=== PATIENT | female | born 1945 | race African-American/Black ===

== ENCOUNTER 2016-12-12 12:27 | Outpatient (CLI) | payer MEDICARE ==
--- OUTSIDE RECORDS SUMMARY | 2016-12-12 12:31 | XMS | Clinical Summary ---
:[address] [facility] Address [address] [place] [address] Phone Care Team Providers Name Role Phone , Primary Care Provider Unavailable Allergies No Known Allergies Current Medications Prescription Sig. Disp. Refills Start Date End Date Status sevelamer (RENVELA) Take 3,200 mg by mouth Active 800 mg tablet 3 (three) times daily with meals 4 tabs w/ meals. lisinopril Take 20 mg by mouth 2 Active (PRINIVIL,ZESTRIL) 20 (two) times daily. MG tablet lovastatin (MEVACOR) Take 40 mg by mouth Active 40 MG tablet nightly. aspirin 325 MG EC Take 325 mg by mouth Active tablet daily. carvedilol (COREG) 25 Take 25 mg by mouth 2 Active MG tablet (two) times daily with breakfast and dinner. clopidogrel (PLAVIX) Take 75 mg by mouth Active 75 mg tablet daily. diltiazem (CARDIZEM) Take 60 mg by mouth 2 Active 60 MG tablet (two) times daily. hydrALAZINE Take 100 mg by mouth 3 Active (APRESOLINE) 100 MG (three) times daily. tablet insulin detemir Inject 30 Units Active (LEVEMIR) 100 unit/mL subcutaneously injection nightly. isosorbide dinitrate Take 30 mg by mouth Active (ISORDIL) 30 MG tablet daily. insulin aspart Inject subcutaneously Active (NOVOLOG FLEXPEN) 100 3 (three) times daily unit/mL InPn with meals. 5 units 3 times before meals ergocalciferol Take 50,000 Units by Active (VITAMIN D2) 50,000 mouth once a week. unit capsule Active Problems Patient Care Coordination Note Dr. Morales, PCP [phone] Problem Noted Date Pre-transplant evaluation for chronic kidney disease 06/03/2015 ESRD (end stage renal disease) on dialysis ([facility]) 06/03/2015 Coronary artery disease involving [place] coronary artery of [place] heart 06/02 without angina pectoris S/P CABG (coronary artery bypass graft) 06/03/2015 Proliferative diabetic retinopathy without macular edema associated with 06/02 type 2 diabetes mellitus (HCC) H/O: gout 06/03/2015 Pre-transplant evaluation for ESRD (end stage renal disease) 03/06/2013 Last Assessment & Plan: Evaluation by Dr. 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 HTN (hypertension) 03/06/2013 Hyperlipidemia 03/06/2013 Hyperparathyroidism (HCC) 03/06/2013 Hyperuricemia 03/06/2013 Atherosclerotic coronary vascular disease 03/06/2013 CHF (congestive heart failure) ([facility]) 03/06/2013 Last Assessment & Plan: H/o CABG, f/u stress test results today Hx of colonic polyps 03/06/2013 Ovarian cyst 03/06/2013 Last Assessment & Plan: Had a hysterectomy in the past for fibroids Chronic anemia 03/06/2013 Gout 03/06/2013 Osteoarthritis 03/06/2013 Last Assessment & Plan: Uses walker outside of the house and sometimes at home Family History Medical History Relation Name Comments Diabetes Father Hypertension Father Diabetes Mother Hypertension Mother Relation Name Status Comments Father Mother Social History Tobacco Use Types Packs/Day Years Used Date Never Smoker Smokeless Tobacco: Never Used Alcohol Use Drinks/Week oz/Week Comments No 0.0 Sex Assigned at Date Recorded Not on file Last Filed Vital Signs Vital Sign Reading Time Taken Blood Pressure 190/73 06/01/2015 11:58 AM CDT Pulse 80 06/01/2015 11:58 AM CDT Temperature 36.3 C (97.4 F) 06/01/2015 11:58 AM CDT Respiratory Rate 20 06/01/2015 11:58 AM CDT Oxygen Saturation - - Inhaled Oxygen Concentration - - Weight 82.4 kg (181 lb 9.6 oz) 06/01/2015 11:58 AM CDT Height 160 cm (5' 3") 06/01/2015 11:56 AM CDT Body Mass Index 32.17 06/01/2015 11:58 AM CDT Plan of Treatment Health Maintenance Due Date Last Done Comments INFLUENZA VACCINE 12/10/2016 Results Not on filefrom Last 3 Months
[2016-12-12 13:54] LABS: Anion Gap 20 mmol/L (10-20); BUN (Urea Nitrogen) 34 mg/dL (9.8-20.1); Calc. Creatinine Clearance 0 mL/min (70-130); Calcium 9.3 mg/dL (7.8-10.44); Carbon Dioxide 20 mmol/L (23-31); Chloride 99 mmol/L (98-107); Estimated GFR-MDRD 5
== END 2016-12-12 12:28 | disposition home or self-care (01) ==
LOC: LABBT 12:27
PROVIDERS: ATTEND Neurological Surgery
DX: Z01.818 Encounter for other preprocedural examination (principal); M43.16 Spondylolisthesis, lumbar region; M48.061 Spinal stenosis, lumbar region without neurogenic claudication
CPT/HCPCS: 80048

== ENCOUNTER 2016-12-13 07:14 | Inpatient (IN) | payer MEDICARE ==
--- NOTE | 2016-12-05 18:51 | HP ---
HISTORY OF PRESENT ILLNESS: Ms. Gallegos is a 71-year-old woman who presents for evaluation of rapid onset of lower back pain and neurogenic claudication symptoms roughly 2 months ago with a previous history of significant back and leg trouble. This is in the setting of an MRI from [facility] ls severe canal stenosis at L2 through L5 and spondylolisthesis at L4-L5. She is using a walker now secondary to pain. She has not treated much to date by any means. PAST MEDICAL HISTORY: Unassessed. CURRENT MEDICATIONS: Unassessed. ALLERGIES: No known drug allergies. PHYSICAL EXAMINATION: Patient is alert and oriented x3. Her gait is stooped and slowed. She uses a walker for ambulation. Lower extremity motor exam is normal. ASSESSMENT: Lumbar stenosis, neurogenic claudication. PLAN: Discussed multilevel decompression with the patient and then also with Dr. Coates, he then met with the patient, reviewed her imaging and ultimately advocated for an L2 through L5 decompression with L4-L5 fusion. He explained to the patient the risks, benefits, and alternatives to the procedu re. The patient expressed understanding and would like to move forward with surgery as discussed. I do believe the patient is mentally competent and capable of making medical decisions for herself a nd we will move forward with surgery as planned.
--- OUTSIDE RECORDS SUMMARY | 2016-12-13 07:17 | XMS | Clinical Summary ---
:1945 Author Organization [facility] Address [address] [place] [address] Phone Care Team Providers Name Role Phone [...] Patient Care Coordination Note Dr. Morales, PCP [phone] Problem Noted Date Pre-transplant evaluation for chronic kidney disease 06/03/2015 ESRD (end stage renal disease) on dialysis ([facility]) 06/03/2015 Coronary artery disease involving [place] coronary artery of [place] heart 06/02 without angina pectoris S/P CABG (coronary artery bypass graft) 06/03/2015 Proliferative diabetic retinopathy without macular edema associated with 06/02 type 2 diabetes mellitus (HCC) H/O: gout 06/03/2015 Pre-transplant evaluation for ESRD (end stage renal disease) 03/06/2013 Last Assessment & Plan: Evaluation by Dr. 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
[2016-12-13] MEDS ORDERED: Bupivacaine HCl 0.5%/Epinephrine 1:200,000/PF 30 ml Vial ONE (09:21)
[2016-12-13] MEDS ORDERED: Thrombin 5000 UNITS/5 ML VIAL ONE (09:21)
[2016-12-13] MEDS ORDERED: Fentanyl 250 MCG/5 ML VIAL ONE (09:36)
[2016-12-13] MEDS ORDERED: Ondansetron HCl/PF 4 MG/2 ML Vial ONE (09:54)
[2016-12-13] MEDS ORDERED: Propofol 200 MG/20 ML VIAL ONE (09:54)
[2016-12-13] MEDS ORDERED: Dexamethasone 20 MG/5 ML VIAL ONE (09:54)
[2016-12-13] MEDS ORDERED: Lidocaine 1% PF 5 ML VIAL ONE (09:54)
[2016-12-13] MEDS ORDERED: Labetalol HCl 100 MG/20 ML SYR ONE (09:54)
[2016-12-13] MEDS ORDERED: PHENYLEPHRINE-NS 100 MCG/ML 10 ML SYRINGE ONE (09:54)
[2016-12-13 10:20] LABS: #Basophils 0.1 thou/uL (0.0-0.2); #Eosinphils 0.2 thou/uL (0.0-0.7); #Lymphocytes 1.6 thou/uL (1.20-3.40); #Monocytes 0.8 thou/uL (0.11-0.59); #Neutrophils 4.5 thou/uL (1.40-6.50); %Basophils 0.7 % (0.0-1.0); %Eosinophils 2.4 % (0.0-10.0); %Lymphocytes 22.9 % (21.0-51.0); %Monocytes 11.4 % (0.0-10.0); Hematocrit 32.3 % (36.0-47.0); Red Blood Cell (RBC) Count 3.33 mill/uL (4.20-5.40); White Blood Cell (WBC) Count 7.1 thou/uL (4.8-10.8)
[2016-12-13 11:07] LABS: Prothrombin Time 14.3 SEC (12.0-14.7)
[2016-12-13 11:08] LABS: PTT 36.5 SEC (22.9-36.1)
--- NOTE | 2016-12-13 11:15 | PRG ---
DATE OF SERVICE: 12/13/2016 Ms. Gallegos is a 71-year-old female known to us for outpatient evaluation for severe low back and lo wer extremity discomfort. This is in the setting of an MRI scan which revealed the presence of high grade lumbar stenosis with associated spondylolisthesis at L4 upon L5. We met with her in the outp atient clinic area and I also talked with her on the phone to discuss multilevel lumbar decompressio n and 1 level posterolateral instrumented fusion. Ms. Gallegos has multiple medical comorbidities including kidney failure where she requires dialysis. She was unable to complete dialysis earlier this week secondary to severe pain. As such, her BUN and creatinine today are elevated. I do have some concerns regarding her current blood count and wh at could be a propensity towards bleeding in our operative case. I did share that with her and the family. We will move forward in order to provide her with some relief, but also recognized the pos sibility that we may need to cut short and/or altogether abort our surgical case should she be coagu lopathic. Ms. Gallegos questions were answered. All the risks, benefits and alternatives of the case were disc ussed with her. Informed consent was provided.
[2016-12-13] MEDS ORDERED: SUGAMMADEX SODIUM 500 MG/5 ML VIAL ONE (13:06)
[2016-12-13] MEDS ORDERED: Bisacodyl 10 MG SUPP PR PRN (13:08)
[2016-12-13] MEDS ORDERED: diphenhydrAMINE HCl 50 MG/ML 1 ML VIAL IVP PRN (13:08)
[2016-12-13] MEDS ORDERED: Acetaminophen 325 MG TAB PO PRN (13:08)
[2016-12-13] MEDS ORDERED: Mag-Al 1200 mg/1200 mg/30 ML UDCUP PO PRN (13:08)
[2016-12-13] MEDS ORDERED: Acetaminophen ER (8hr) 650 MG TAB PO PRN (13:10)
[2016-12-13] MEDS ORDERED: Sodium Chloride 0.9% 1,000 ML IV SCH ×2 (13:15→16:24)
[2016-12-13] MEDS ORDERED: Morphine Sulfate 2 MG/ML SYRINGE SLOW IVP PRN (13:35)
[2016-12-13] MEDS ORDERED: Promethazine HCl 25 MG/ML VIAL IM PRN (13:35)
[2016-12-13] MEDS ORDERED: Promethazine HCl 25 MG/ML VIAL SLOW IVP PRN (13:35)
[2016-12-13] MEDS ORDERED: Ondansetron HCl/PF 4 MG/2 ML Vial IVP PRN (13:35)
[2016-12-13] MEDS ORDERED: Fentanyl 100 MCG/2 ML VIAL ONE ×2 (13:50→14:10)
--- NOTE | 2016-12-13 15:04 | RAD ---
AP CHEST: Indication: Central line placement. Comparison: 05-15-16 FINDINGS: There has been interval placement of a left IJ central venous catheter. The tip projects in the maverick on of the SVC or possibly the azygous vein. Cardiomegaly and pulmonary vascular congestion is presen t. There are small pleural effusions. No pneumothorax is evident. IMPRESSION: 1. Central venous catheter projecting from the left IJ to the region of the SVC or possibly the azyg ous vein. 2. Cardiomegaly with pulmonary vascular congestion. 3. No pneumothorax. POS: [facility]
[2016-12-13] MEDS: tiZANidine HCl 4 MG TAB PO PRN (16:07)
[2016-12-13] MEDS ORDERED: Furosemide 100 MG/10 ML VIAL SLOW IVP SCH (16:30)
[2016-12-13 16:53] VITALS: BMI 27.5
[2016-12-13] MEDS: Sevelamer Carbonate 800 MG TAB PO SCH (17:33)
[2016-12-13] MEDS ORDERED: FLU VACC TS2017-18 (>65YR) 0.5 ML SYRINGE IM ONE (18:00)
[2016-12-13] MEDS ORDERED: Dextrose 5% in Water 1,000 ML IV PRN (18:52)
[2016-12-13] MEDS ORDERED: Insulin Regular 300 UNITS/3 ML VIAL SC PRN (18:52)
[2016-12-13] MEDS ORDERED: Dextrose 50% Abboject 50 ML SYRINGE IVP PRN (18:52)
[2016-12-13] MEDS: Carvedilol 25 MG TAB PO SCH (20:17)
[2016-12-13] MEDS: Lisinopril 20 MG TAB PO SCH (20:17)
[2016-12-13] MEDS: Atorvastatin Calcium 10 MG TAB PO SCH (20:17)
[2016-12-13] MEDS ORDERED: Famotidine 20 MG TAB PO PRN (21:00)
[2016-12-14] MEDS: tiZANidine HCl 4 MG TAB PO PRN ×2 (04:32→12:02)
[2016-12-14] MEDS: Acetaminophen/Codeine 30-300mg Tablet PO PRN ×2 (05:16→10:54)
[2016-12-14 05:22] LABS: #Monocytes 1.1 thou/uL (0.11-0.59); #Neutrophils 8.6 thou/uL (1.40-6.50); %Basophils 0.2 % (0.0-1.0); %Eosinophils 0.1 % (0.0-10.0); %Lymphocytes 9.4 % (21.0-51.0); Hematocrit 34.6 % (36.0-47.0); Mean Platelet Volume 7.4 fL (7.4-10.4); Red Blood Cell (RBC) Count 3.52 mill/uL (4.20-5.40); White Blood Cell (WBC) Count 10.6 thou/uL (4.8-10.8)
[2016-12-14 05:56] LABS: Anion Gap 18 mmol/L (10-20); BUN (Urea Nitrogen) 50 mg/dL (9.8-20.1); Calc. Creatinine Clearance 5 mL/min (70-130); Calcium 8.7 mg/dL (7.8-10.44); Carbon Dioxide 25 mmol/L (23-31); Chloride 98 mmol/L (98-107); Estimated GFR-MDRD 4
--- NOTE | 2016-12-14 06:02 | CON ---
DATE OF CONSULTATION: 12/13/2016 REASON FOR CONSULTATION: Manage medical problems. HISTORY OF PRESENT ILLNESS: Ms. Gallegos is a 71-year-old -[place] female with a past medica l history of diabetes, end-stage renal disease, hypertension, and hyperlipidemia admitted because of lumbar spinal stenosis with spondylolisthesis at L3-L4 for surgery. Neurosurgery admitted and she underwent surgery for decompression and fusion of the lumbar spine area. The patient states she carranza s not take Levemir because of hypoglycemic episodes, so currently, she is not taking anything for di abetes and taking her blood pressure medications and goes to dialysis. Currently, she does not have any chest pain or shortness of breath. Complains of pain in the left side of the body, left arm, a nd left leg. No nausea or vomiting. No shortness of breath. No fever. PAST MEDICAL HISTORY: 1. End-stage renal disease. 2. Hypertension. 3. Insulin-dependent diabetes mellitus. 4. Hyperlipidemia. 5. Chronic back pain with radiculopathy. PAST SURGICAL HISTORY: Nothing significant. CURRENT MEDICATIONS: The patient is on hydralazine 50 t.i.d., Levemir insulin on hold, Imdur 30 mg daily, lisinopril 20 mg b.i.d., Renvela 3200 mg t.i.d., Zantac 150 daily, diltiazem one tablet t.i.d ., Coreg b.i.d. She used to be on Plavix and aspirin which are on hold. Lovastatin 40 mg daily. ALLERGIES: No known drug allergies. FAMILY HISTORY: Nothing of interest. SOCIAL HISTORY: The patient lives with family. No history of smoking. No history of alcohol intak e. REVIEW OF SYSTEMS: Cardiovascular: No chest pain. No shortness of breath. Respiratory: No fever or cough. Gastrointestinal: No nausea or vomiting. No abdominal pain. Genitourinary: No dysuri a or hematuria. Central Nervous System: No headache, no dizziness. PHYSICAL EXAMINATION: GENERAL: The patient is alert, awake, and oriented x2. VITAL SIGNS: Temperature 98, pulse 65, respirations 20, blood pressure 130/90. HEENT: Head is normocephalic and atraumatic. Pupils are equal and reactive to light. Nasopharynx is pale and dry. Hard and soft palate, no lesions seen. SKIN: Skin turgor decreased. NECK: Supple. No JVD. LUNGS: Bilateral air entry present. No rales, no rhonchi. HEART: S1 and S2 regular. ABDOMEN: Soft. No distention, no tenderness. Normal bowel sounds present. CENTRAL NERVOUS SYSTEM: No focal deficits. LABORATORY DATA AND IMAGING DATA: CBC shows WBC of 7, hemoglobin 10.5, hematocrit 32, platelets 245 . Prothrombin time 14, INR 1.1. Accu-Chek 83 and 76. EKG shows normal sinus rhythm. No acute ST- T wave changes seen. ASSESSMENT: 1. End-stage renal disease. 2. Hypertension. 3. Insulin-dependent diabetes mellitus. 4. Lumbar spinal stenosis with spondylolisthesis at L3-L4. PLAN: 1. Vital signs q. 4 hours. 2. Activity: As tolerated. 3. Allergies: NKDA. 4. Hep-Lock. 5. Accu-Cheks a.c. and at bedtime. 6. Sliding scale mild with regular insulin. 7. ADA diet and renal diet. 8. We will hold Levemir and continue other medications. Thank you very much for this consult. We will follow.
--- NOTE | 2016-12-14 06:25 | CON ---
DATE OF CONSULTATION: 12/13/2016 CONSULTING PHYSICIAN: Dr. Almas Coates. REASON FOR CONSULTATION: End-stage renal disease evaluation and care. REASON FOR ADMISSION: Neck surgery. HISTORY OF PRESENT ILLNESS: This is a 71-year-old female with history of end-stage renal disease, h ypertension, type 2 diabetes, hyperlipidemia, who came to the hospital for neck surgery. She gets d ialysis Sunday, Sunday and Sunday, due for dialysis today and Nephrology consulted. The patient denied to have dialysis today. She only had one hour of dialysis on Sunday and get dialysis today, but her face is puffy. No shortness of breath reported, but she is hypoxic, needing oxygen through the nasal cannula. No fever or chills. No nausea, vomiting. Her family was at the bedside. PAST MEDICAL HISTORY: Positive for end-stage renal disease, hypertension, type 2 diabetes, hyperlip idemia, gout. PAST SURGICAL HISTORY: Hysterectomy, appendectomy. HOME MEDICATIONS: Include hydralazine, Renvela, lovastatin, lisinopril, isosorbide, Levemir, Cardiz em, Plavix, carvedilol and aspirin. SOCIAL HISTORY: No smoking, alcohol or illicit drug abuse. ALLERGIES: No known drug allergies. FAMILY HISTORY: No history of any kidney disease. REVIEW OF SYSTEMS: The following complete review of systems was negative unless otherwise mentioned in the HPI or below: Constitutional: Weight loss or gain, ability to conduct usual activities. S kin: Rash, itching. Eyes: Double vision, pain. ENT/Mouth: Nose bleeding, neck stiffness, pain, tenderness. Cardiovascular: Palpitations, dyspnea on exertion, orthopnea. Respiratory: Shortness of breath, wheezing, cough, hemoptysis, fever or night sweats. Gastrointestinal: Poor appetite, a bdominal pain, heartburn, nausea, vomiting, constipation, or diarrhea. Genitourinary: Urgency, daniel quency, dysuria, nocturia. Musculoskeletal: Pain, swelling. Neurologic/Psychiatric: Anxiety, dep ression. Allergy/Immunologic: Skin rash, bleeding tendency. PHYSICAL EXAMINATION: GENERAL: This is a well-built female, in no apparent distress. VITAL SIGNS: Temperature 97.9, pulse 70, respiratory rate 18, blood pressure 140/60. HEENT: Atraumatic, normocephalic. Facial puffiness present. NECK: Supple, no masses. CARDIOVASCULAR: S1, S2 heard. Rate and rhythm regular. RESPIRATORY: Clear. GASTROINTESTINAL: Abdomen is soft. MUSCULOSKELETAL: 1+ edema. DERMATOLOGIC: No skin rash. NEUROLOGIC: Alert, awake. PSYCHIATRIC: Mood and affect normal. LABORATORY DATA: Hemoglobin is 10.4. Potassium is 5.0. BUN , creatinine is 6.2. ASSESSMENT AND PLAN: 1. End-stage renal disease, on hemodialysis. Plan is to continue on dialysis as tolerated. The fer patel refused to have dialysis today, repeat labs in the morning. We will give one dose of Lasix an d we will reduce IV fluids to 30 mL per hour. 2. Anemia, rule out any bleed. 3. Edema. We will remove fluid with dialysis, patient refused to have dialysis today. 4. Hypertension. Continue home medication. 5. Continue selected home medications. We will have dialysis in the morning as patient is refusing today. We will continue to follow. Thank you for the consultation.
[2016-12-14] MEDS: Sevelamer Carbonate 800 MG TAB PO SCH ×3 (07:47→18:31)
[2016-12-14] MEDS: Carvedilol 25 MG TAB PO SCH ×2 (07:49→22:07)
[2016-12-14] MEDS: Lisinopril 20 MG TAB PO SCH ×2 (07:49→22:07)
[2016-12-14] MEDS ORDERED: Heparin 10,000 UNITS/ 10 ML VIAL ONE (09:00)
--- NOTE | 2016-12-14 11:16 | PRG ---
DATE OF SERVICE: 12/14/2016 SUBJECTIVE: The patient was seen and examined at bedside and during dialysis. The patient is not t olerating dialysis well. She is having jerking movements and a lot of pain. She is still able to t olerate only 1 hour of dialysis today. She was taken off. The patient still with puffy face, no sh ortness of breath. She was hypoxic on oxygen nasal cannula. No fever or chills. No nausea, vomiti ng. OBJECTIVE: GENERAL: This is an elderly female in mild distress. VITAL SIGNS: Temperature 96, pulse 82, respirations 16, blood pressure 165/69. HEENT: Atraumatic, normocephalic. Oral mucosa is moist. NECK: Supple. CARDIOVASCULAR: S1, S2 heard. Rate and rhythm regular. RESPIRATORY: Clear. ABDOMEN: Soft. MUSCULOSKELETAL: 1+ edema. DERMATOLOGIC: No skin rash. NEUROLOGIC: Alert, awake. PSYCHIATRIC: Mood and affect normal. LABORATORY DATA: Hemoglobin is 11.0, potassium 4.0, BUN 50, creatinine is 10.9. ASSESSMENT AND PLAN: 1. End-stage renal disease on hemodialysis. Plan is to have dialysis today. The patient could not tolerate much. My plan is to have dialysis tomorrow, too. Continue dialysis Sunday, Sunday, an d Sunday. 2. Hyperkalemia, better. 3. Edema. We will remove fluid with dialysis as tolerated. The patient is not able to tolerate mu ch dialysis due to pain and tremors. 4. Hypertension, stable. The patient was counseled to have dialysis, but she is not able to tolerate and wants to get off and was taken off early. She actually had only 1 hour of dialysis today. Will attempt tomorrow, too.
[2016-12-14 12:11] LABS: ALT (SGPT) Less than 7 U/L (8-55); AST (SGOT) 20 U/L (5-34); Alkaline Phosphatase 46 U/L (40-150); Anion Gap 17 mmol/L (10-20); BUN (Urea Nitrogen) 27 mg/dL (9.8-20.1); Bilirubin, Total 0.3 mg/dL (0.2-1.2); Calc. Creatinine Clearance 8 mL/min (70-130); Calcium 8.8 mg/dL (7.8-10.44); Carbon Dioxide 27 mmol/L (23-31); Chloride 100 mmol/L (98-107); Estimated GFR-MDRD 8; Globulin 2.7 g/dL (2.4-3.5); Protein, Total 5.9 g/dL (6.0-8.3)
[2016-12-14] MEDS ORDERED: Baclofen 10 MG TAB PO SCH (15:00)
[2016-12-14] MEDS ORDERED: Lorazepam 2 MG/ML VIAL SLOW IVP SCH (18:00)
[2016-12-14] MEDS: guaiFENesin ER 600 MG TAB PO SCH (22:07)
[2016-12-14] MEDS: Atorvastatin Calcium 10 MG TAB PO SCH (22:07)
[2016-12-15] MEDS: Lisinopril 20 MG TAB PO SCH ×2 (08:56→21:40)
[2016-12-15] MEDS: Sevelamer Carbonate 800 MG TAB PO SCH ×3 (08:56→16:24)
[2016-12-15] MEDS: guaiFENesin ER 600 MG TAB PO SCH ×2 (08:56→21:40)
[2016-12-15] MEDS: Carvedilol 25 MG TAB PO SCH ×2 (08:57→21:40)
--- NOTE | 2016-12-15 09:19 | PRG ---
DATE OF SERVICE: 12/15/2016 SUBJECTIVE: Patient was seen and examined at bedside and overnight events noted. Patient denies an y shortness of breath or chest pain or palpitation. No history of nausea or vomiting or diarrhea or fever or chills or cramps. OBJECTIVE: GENERAL: This is a well-built female in no apparent distress. VITAL SIGNS: Temperature 97.9, pulse 61, respiratory rate 18, blood pressure 185/79. HEENT: Atraumatic, normocephalic. Oral mucosa is moist. NECK: Supple. CARDIOVASCULAR: S1 and S2 heard, rate and rhythm regular. RESPIRATORY: Clear to auscultation. GASTROINTESTINAL: Abdomen is soft. MUSCULOSKELETAL: No tenderness, no edema. DERMATOLOGIC: No skin rash. NEUROLOGIC: Alert and awake and oriented X3. No focal neurologic deficits. Moving all the extremi ties. PSYCHIATRIC: Mood and affect normal. LABORATORY DATA: Not done today. ASSESSMENT AND PLAN: 1. End-stage renal disease, continue on hemodialysis, patient refused to have dialysis today. Lina ent did not have much dialysis today as she was counseled, but despite that, she refused to have amos lysis. 2. Edema, controlled. 3. Hypertension, stable. 4. Hyperkalemia, better. 5. Continue on dialysis as tolerated and if she agrees, patient refused to have dialysis today. patient was scheduled on dialysis on Sunday, Sunday, and Sunday.
[2016-12-15] MEDS: Ondansetron HCl/PF 4 MG/2 ML Vial IVP PRN ×2 (09:35→14:49)
--- NOTE | 2016-12-15 10:09 | CON ---
DATE OF CONSULTATION: 12/15/2016 CONSULTING PHYSICIAN: Dr. Sevilla. IMPRESSION: 1. Focal seizures with speech arrest. 2. Spinal stenosis. 3. End-stage renal disease. 4. Hypertension. PLAN: 1. MRI of the brain without contrast. 2. Start Keppra 500 mg twice a day if the seizures returned. HISTORY OF PRESENT ILLNESS: Ms. Gallegos is a 71-year-old black female, who came in for laminectomy. She had multilevel spinal stenosis documented on her MRI. She started experiencing some twitching . She reports that she was aware of what was going on, but she was unable to speak. She was given some Ativan last night and the symptoms resolved. She has never had anything like this before. She denies a past history of stroke, TIA, seizures, or other neurologic problems. She is feeling fine, otherwise, this morning. PAST MEDICAL HISTORY: As listed above. ALLERGIES: None reported. SOCIAL HISTORY: No tobacco or alcohol use. FAMILY HISTORY: Noncontributory. REVIEW OF SYSTEMS: No complaints, lateralized weakness, or numbness. PHYSICAL EXAMINATION: GENERAL: She is a well-nourished elderly lady, lying in bed, in no distress. HEENT: Pupils equal and reactive. Conjunctivae clear. Oropharynx clear. EXTREMITIES: No cyanosis, clubbing, or edema. NEUROLOGIC: She is alert and appropriate. Her speech is fluent and clear. Cranial nerves II-XII a re intact. Motor exam shows symmetric strength. There was no fix or drift noted. Likzzt-ge-apsm m ovements were symmetric and smooth. She did have some asterixis present bilaterally. Gait was not tested. Sensation was equal to light touch. SUMMARY: This is an elderly lady with end-stage renal disease, which would predispose her seizures. She apparently had some focal seizure activity yesterday evening with speech arrest. Therefore, w e need to rule out a structural etiology. I would hold off on starting anticonvulsant therapy until were this proven to be a recurrent problem.
[2016-12-15 10:10] LABS: Anion Gap 15 mmol/L (10-20); BUN (Urea Nitrogen) 38 mg/dL (9.8-20.1); Calc. Creatinine Clearance 7 mL/min (70-130); Calcium 9.5 mg/dL (7.8-10.44); Carbon Dioxide 27 mmol/L (23-31); Chloride 98 mmol/L (98-107); Estimated GFR-MDRD 5
--- NOTE | 2016-12-15 12:34 | PRG ---
DATE OF SERVICE: 12/15/2016 Ms. Gallegos is a 71-year-old female now 2 day status post lumbar decompression. She is recovering o n the oncology floor. Her surgery was uneventful. Today, I met with her and her brother who is in the room with her. She has anticipated post-surgical back pain. Ms. Gallegos has refused dialysis t johana and she has cut short dialysis earlier in the week. She is also refusing a rehab consultation. Ms. Gallegos is in need of physical therapy at a minimum. I do believe she would benefit from inpati ent rehab, but it is clear that she is not interested. Furthermore, she has been noncompliant and o ur recommendations with respect to her dialysis which poses her at increased risk for additional com plications. If she is not willing to go to rehab then we will work quickly towards moving her towar ds home.
--- NOTE | 2016-12-15 15:25 | MRI ---
NONCONTRAST ENHANCED MRI IMAGES OF BRAIN: HISTORY: Head twitching and possible seizure. FINDINGS: Multiplanar, multisequence noncontrast-enhanced MRI images of the brain obtained. Images demonstrate bilateral cataract surgeries. The patient has diffuse cortical atrophy and exten sive deep white matter ischemic changes. There is an area of increased signal in the subcortical white matter of the right frontal lobe as we ll as in the anterior aspect of the right temporal lobe. These may represent gliotic changes from p revious possible old trauma. Has this patient has had previous old traumatic brain injury? No evid ence of acute intracranial hemorrhages or strokes seen. No evidence of areas of diffusion restricti on seen. Major flow voids seen in the major intracranial vessels. IMPRESSION: 1. Cortical atrophy and deep white matter ischemic changes. 2. Old likely areas of gliosis in the right frontal and temporal lobe white matter. POS: [facility]
--- NOTE | 2016-12-15 15:40 | PRG ---
DATE OF SERVICE: 12/15/2016 SUBJECTIVE: Ms. Gallegos is a 71-year-old woman who is now postop day #2 following lumbar decompress ion at L2-L5. She unfortunately has been refusing dialysis and has started to develop a twitching i n the posterior neck, which I think may be just a buildup of metabolites that needs to be renally ex creted. Because she feels uncomfortable during dialysis, she either cuts it short or refuses it alt ogether and discussed with her that she really needs to tell their crew whatever discomfort she may be having as the dialysis is likely the most important medical treatment that she has going at the [facility] and would very likely resolve her neck issue. Yesterday, we tried baclofen and tizanidine and nothing seems to quell this twitching. Additionally, all of her lab work has been essentially nor mal outside of BUN and creatinine which we would expect to be abnormal given the fact that she is a chronic renal disease patient. Overall, I think that she is doing well and has tolerated her back p ain about as well as we would expect her to. She has been working with physical therapy and occupat ional therapy. The plan is still to try to queue up inpatient rehabilitation if possible and we amalia l go from there. No additional complaints at this time. Miguel Gant PA-C dictating for Dr. Coates.
[2016-12-15] MEDS: Atorvastatin Calcium 10 MG TAB PO SCH (21:40)
[2016-12-15] MEDS: levETIRAcetam 500 MG TAB PO SCH (21:41)
[2016-12-16] MEDS: tiZANidine HCl 4 MG TAB PO PRN (06:54)
[2016-12-16] MEDS: Sevelamer Carbonate 800 MG TAB PO SCH ×3 (11:00→16:56)
[2016-12-16] MEDS: Carvedilol 25 MG TAB PO SCH ×2 (11:01→20:37)
[2016-12-16] MEDS: guaiFENesin ER 600 MG TAB PO SCH ×2 (11:01→20:38)
[2016-12-16] MEDS: Lisinopril 20 MG TAB PO SCH ×2 (11:02→20:37)
[2016-12-16] MEDS: levETIRAcetam 500 MG TAB PO SCH ×2 (11:07→20:32)
--- NOTE | 2016-12-16 11:16 | PRG ---
DATE OF SERVICE: 12/16/2016 SUBJECTIVE: This 71-year-old female being seen for end-stage renal disease. Patient denies any akhil sea, vomiting or chest pain. PHYSICAL EXAMINATION: GENERAL: Patient is awake, alert. VITAL SIGNS: Afebrile, pulse 75, breathing 16, blood pressure was 132/55. GENERAL APPEARANCE AND MENTAL STATUS: Fair. HEAD/NECK: Normocephalic. Atraumatic. EYES: EOMI. No deformity. EARS: Clear. No ulcers. NOSE: Intact. No lesions. MOUTH: Clear. No discharge. THROAT: Clear. No exudate. LUNGS: Clear. No crackles. CARDIAC: S1, S2. No rub. ABDOMEN: Benign. BS+. GENITALIA/RECTUM: Dennis absent. BACK/EXTREMITIES: Edema 0+ Ulcer- NEUROLOGICAL: Alert and motor intact. SKIN: Rash- Bruise- LYMPHATICS: Edema- Ulcer- LABORATORY DATA: Show hemoglobin 11, potassium 3.4. ASSESSMENT AND PLAN: 1. Stage 6 chronic kidney disease, continue hemodialysis. 2. Hypertension, stable. 3. Anemia, stable. 4. Medications based on glomerular filtration rate are appropriate.
[2016-12-16] MEDS: Acetaminophen/Codeine 30-300mg Tablet PO PRN ×2 (19:38→23:36)
[2016-12-16] MEDS: Atorvastatin Calcium 10 MG TAB PO SCH (20:37)
[2016-12-17] MEDS: Sevelamer Carbonate 800 MG TAB PO SCH ×3 (09:59→17:43)
[2016-12-17] MEDS: Lisinopril 20 MG TAB PO SCH ×2 (10:00→20:41)
[2016-12-17] MEDS: guaiFENesin ER 600 MG TAB PO SCH ×2 (10:00→20:39)
[2016-12-17] MEDS: Carvedilol 25 MG TAB PO SCH ×2 (10:00→20:38)
[2016-12-17] MEDS: levETIRAcetam 500 MG TAB PO SCH ×2 (10:03→20:42)
--- NOTE | 2016-12-17 10:51 | PRG ---
DATE OF SERVICE: 12/17/2016 SUBJECTIVE: This is a 71-year-old female being seen for end-stage renal disease. Patient denies an y nausea, vomiting, or chest pain. PHYSICAL EXAMINATION: GENERAL: Patient is awake, alert. VITAL SIGNS: Afebrile, pulse 80, breathing at 16, blood pressure 125/56. GENERAL APPEARANCE AND MENTAL STATUS: Fair. HEAD/NECK: Normocephalic. Atraumatic. EYES: EOMI. No deformity. EARS: Clear. No ulcers. NOSE: Intact. No lesions. MOUTH: Clear. No discharge. THROAT: Clear. No exudate. LUNGS: Clear. No crackles. CARDIAC: S1, S2. No rub. ABDOMEN: Benign. BS+. GENITALIA/RECTUM: Dennis absent. BACK/EXTREMITIES: Edema 0+ Ulcer- NEUROLOGICAL: Alert and motor intact. SKIN: Rash-. Bruise-. LYMPHATICS: Edema-. Ulcer-. ASSESSMENT AND RECOMMENDATIONS: 1. Stage 6 chronic kidney disease, continue on hemodialysis. 2. Hypertension, stable. 3. Anemia, stable. 4. Medications based on GFR are appropriate.
[2016-12-17] MEDS: Atorvastatin Calcium 10 MG TAB PO SCH (20:38)
[2016-12-18 08:24] LABS: Oxyhemoglobin 97.6 % (94.0-97.0); Sodium 139 mmol/L (135-148)
--- NOTE | 2016-12-18 08:42 | PRG ---
DATE OF SERVICE: 12/18/2016 SUBJECTIVE: This 71-year-old female being seen for end-stage renal disease. The patient denies any nausea, vomiting or chest pain. PHYSICAL EXAMINATION: GENERAL: Patient is awake, alert. VITAL SIGNS: Afebrile, pulse 71, breathing at 16, blood pressure 160/66. GENERAL APPEARANCE AND MENTAL STATUS: Fair. HEAD/NECK: Normocephalic. Atraumatic. EYES: EOMI. No deformity. EARS: Clear. No ulcers. NOSE: Intact. No lesions. MOUTH: Clear. No discharge. THROAT: Clear. No exudate. LUNGS: Clear. No crackles. CARDIAC: S1, S2. No rub. ABDOMEN: Benign. BS+. GENITALIA/RECTUM: Dennis absent. BACK/EXTREMITIES: Edema 0+ Ulcer- NEUROLOGICAL: Alert and motor intact. SKIN: Rash- Bruise- LYMPHATICS: Edema- Ulcer- ASSESSMENT AND RECOMMENDATIONS: 1. Stage 6 chronic kidney disease. We will plan dialysis today. 2. Hypertension, stable. 3. Anemia, stable. 4. Medications based on glomerular filtration rate are appropriate.
[2016-12-18 08:55] LABS: Mode OR ABG; Vent YES
[2016-12-18] MEDS: levETIRAcetam 500 MG TAB PO SCH ×2 (10:38→20:48)
[2016-12-18] MEDS: Lisinopril 20 MG TAB PO SCH ×2 (10:38→20:49)
[2016-12-18] MEDS: Sevelamer Carbonate 800 MG TAB PO SCH ×3 (10:39→17:12)
[2016-12-18] MEDS: Carvedilol 25 MG TAB PO SCH ×2 (10:39→20:49)
[2016-12-18] MEDS: guaiFENesin ER 600 MG TAB PO SCH ×2 (10:48→20:48)
[2016-12-18] MEDS: Acetaminophen/Codeine 30-300mg Tablet PO PRN (19:57)
[2016-12-18] MEDS: Milk Of Magnesia 30 ML UDCUP PO PRN (20:47)
[2016-12-18] MEDS: Atorvastatin Calcium 10 MG TAB PO SCH (20:49)
--- NOTE | 2016-12-19 07:53 | PRG ---
DATE OF SERVICE: 12/19/2016 SUBJECTIVE: A 71-year-old female being seen for end-stage renal disease. The patient denies any na usea, vomiting or chest pain. PHYSICAL EXAMINATION: GENERAL: Patient is awake, alert. VITAL SIGNS: Afebrile, pulse 74, breathing at 16, blood pressure 152/65. GENERAL APPEARANCE AND MENTAL STATUS: Fair. HEAD/NECK: Normocephalic. Atraumatic. EYES: EOMI. No deformity. EARS: Clear. No ulcers. NOSE: Intact. No lesions. MOUTH: Clear. No discharge. THROAT: Clear. No exudate. LUNGS: Clear. No crackles. CARDIAC: S1, S2. No rub. ABDOMEN: Benign. BS+. GENITALIA/RECTUM: Dennis absent. BACK/EXTREMITIES: Edema 0+ Ulcer- NEUROLOGICAL: Alert and motor intact. SKIN: Rash- Bruise- LYMPHATICS: Edema- Ulcer- LABORATORY DATA: Show hemoglobin 11. ASSESSMENT AND RECOMMENDATIONS: 1. Stage 6 chronic kidney disease, plan dialysis tomorrow. 2. Hypertension, stable. 3. Anemia, stable. 4. Medications based on glomerular filtration rate are appropriate.
[2016-12-19] MEDS: Sevelamer Carbonate 800 MG TAB PO SCH ×3 (08:53→18:03)
[2016-12-19] MEDS: Carvedilol 25 MG TAB PO SCH ×2 (08:56→21:04)
[2016-12-19] MEDS: Lisinopril 20 MG TAB PO SCH ×2 (08:59→21:04)
[2016-12-19] MEDS: guaiFENesin ER 600 MG TAB PO SCH ×2 (09:01→21:03)
[2016-12-19] MEDS: levETIRAcetam 500 MG TAB PO SCH ×2 (09:01→21:03)
[2016-12-19] MEDS: Docusate 100 MG CAP PO PRN (09:02)
[2016-12-19] MEDS: Milk Of Magnesia 30 ML UDCUP PO PRN (09:02)
[2016-12-19] MEDS: Bisacodyl 5 MG TAB PO PRN (21:02)
[2016-12-19] MEDS: Atorvastatin Calcium 10 MG TAB PO SCH (21:04)
--- NOTE | 2016-12-20 08:06 | PRG ---
DATE OF SERVICE: 12/20/2016 SUBJECTIVE: This is a 71-year-old female being seen for end-stage renal disease. Patient denies an y nausea, vomiting or chest pain. PHYSICAL EXAMINATION: GENERAL: Patient is awake, alert. VITAL SIGNS: Afebrile, pulse 85, breathing at 16, blood pressure 132/85. GENERAL APPEARANCE AND MENTAL STATUS: Fair. HEAD/NECK: Normocephalic. Atraumatic. EYES: EOMI. No deformity. EARS: Clear. No ulcers. NOSE: Intact. No lesions. MOUTH: Clear. No discharge. THROAT: Clear. No exudate. LUNGS: Clear. No crackles. CARDIAC: S1, S2. No rub. ABDOMEN: Benign. BS+. GENITALIA/RECTUM: Dennis absent. BACK/EXTREMITIES: Edema 0+ Ulcer- NEUROLOGICAL: Alert and motor intact. SKIN: Rash- Bruise- LYMPHATICS: Edema- Ulcer- LABORATORY DATA: Show hemoglobin 11. ASSESSMENT AND RECOMMENDATIONS: 1. Stage 6 chronic kidney disease. Continue hemodialysis. 2. Hypertension, stable. 3. Anemia, stable. 4. Medications based on glomerular filtration rate are appropriate.
[2016-12-20] MEDS: Polyethylene Glycol 3350 17 GM Packet PO SCH (11:51)
[2016-12-20] MEDS: Docusate 100 MG CAP PO PRN (11:51)
[2016-12-20] MEDS: Lisinopril 20 MG TAB PO SCH ×2 (11:52→21:06)
[2016-12-20] MEDS: Carvedilol 25 MG TAB PO SCH ×2 (11:52→21:06)
[2016-12-20] MEDS: guaiFENesin ER 600 MG TAB PO SCH ×2 (11:52→21:03)
[2016-12-20] MEDS: Sevelamer Carbonate 800 MG TAB PO SCH ×3 (11:52→18:11)
[2016-12-20] MEDS: levETIRAcetam 500 MG TAB PO SCH (11:53)
[2016-12-20] MEDS: Acetaminophen/Codeine 30-300mg Tablet PO PRN (14:58)
[2016-12-20] MEDS: Bisacodyl 5 MG TAB PO PRN (14:58)
[2016-12-20] MEDS: Atorvastatin Calcium 10 MG TAB PO SCH (21:03)
[2016-12-21 03:52] LABS: #Eosinphils 0.3 thou/uL (0.0-0.7); #Lymphocytes 1.2 thou/uL (1.20-3.40); #Monocytes 1.3 thou/uL (0.11-0.59); #Neutrophils 6.9 thou/uL (1.40-6.50); %Basophils 0.3 % (0.0-1.0); %Lymphocytes 12.7 % (21.0-51.0); %Monocytes 13.5 % (0.0-10.0); Hematocrit 30.8 % (36.0-47.0); Mean Platelet Volume 7.2 fL (7.4-10.4); White Blood Cell (WBC) Count 9.7 thou/uL (4.8-10.8)
[2016-12-21 04:09] LABS: BUN (Urea Nitrogen) 26 mg/dL (9.8-20.1); Calc. Creatinine Clearance 11 mL/min (70-130); Calcium 9.6 mg/dL (7.8-10.44); Estimated GFR-MDRD 9
[2016-12-21 04:18] LABS: Anion Gap 7 mmol/L (10-20); Carbon Dioxide 40 mmol/L (23-31); Chloride 94 mmol/L (98-107)
[2016-12-21] MEDS: Acetaminophen/Codeine 30-300mg Tablet PO PRN ×2 (04:55→16:15)
[2016-12-21 07:07] VITALS: TEMP 98
[2016-12-21] MEDS: Polyethylene Glycol 3350 17 GM Packet PO SCH (08:54)
[2016-12-21] MEDS: Carvedilol 25 MG TAB PO SCH (08:55)
[2016-12-21] MEDS: guaiFENesin ER 600 MG TAB PO SCH (08:56)
[2016-12-21] MEDS: Lisinopril 20 MG TAB PO SCH (08:57)
[2016-12-21 08:59] VITALS: BP 150/69
--- NOTE | 2016-12-21 09:20 | PRG ---
DATE OF SERVICE: 12/21/2016 SUBJECTIVE: This 71-year-old female being seen for end-stage renal disease. Patient denies any akhil sea, vomiting or chest pain. PHYSICAL EXAMINATION: GENERAL: Patient is awake, alert. VITAL SIGNS: Afebrile, pulse 78, breathing at 16, blood pressure 150/69. GENERAL APPEARANCE AND MENTAL STATUS: Fair. HEAD/NECK: Normocephalic. Atraumatic. EYES: EOMI. No deformity. EARS: Clear. No ulcers. NOSE: Intact. No lesions. MOUTH: Clear. No discharge. THROAT: Clear. No exudate. LUNGS: Clear. No crackles. CARDIAC: S1, S2. No rub. ABDOMEN: Benign. BS+. GENITALIA/RECTUM: Dennis absent. BACK/EXTREMITIES: Edema 0+ Ulcer- NEUROLOGICAL: Alert and motor intact. SKIN: Rash- Bruise- LYMPHATICS: Edema- Ulcer- LABORATORY DATA: Show hemoglobin 9.7. ASSESSMENT AND RECOMMENDATIONS: 1. Stage 6 chronic kidney disease, continue hemodialysis. 2. Hypertension, stable. 3. Anemia, stable. 4. Medications based on glomerular filtration rate are appropriate.
[2016-12-21] MEDS: Sevelamer Carbonate 800 MG TAB PO SCH ×2 (09:54→12:19)
--- NOTE | 2016-12-22 10:37 | EEG ---
Referring Physician: Vladimir VAN EEG # [id number] TEST TYPE: ROUTINE PORTABLE INPATIENT REPORT: AN EEG USING THE INTERNATIONAL TEN-TWENTY SYSTEM OF ELECTRODE PLACEMENT WAS PERFORMED. The waking background is a 8 hertz alpha frequency. The patient remained awake throughout the study. Photic stimulation was unremarkable. No epileptiform features were seen. IMPRESSION: THIS IS A NORMAL AWAKE EEG. Camp Manager: [employer] Supervisor: EEG.RONI LUBIN
--- NOTE | 2016-12-22 14:06 | OP ---
DATE OF PROCEDURE: 12/15/2016 SURGEON: Almas Coates M.D. PANEL WIRER: Jeferson Gant PA-C. INDICATION: Pain. DIAGNOSIS: Lumbar stenosis. PROCEDURE: L2 through L5 lumbar decompression. ANESTHESIA: General. TECHNIQUE: The patient was brought into the operating room and placed under general anesthesia. Sh e was flipped from a supine to a prone position on the operating room table. A linear incision was planned spanning L2-L5. After prepping and draping and after an appropriate operative pause, the in cision was created. The soft tissues were swept away from midline. Self-retaining retractors place d in the wound for optimal exposure. An Adson rongeur was used to remove the spinous processes tommie g the inferior aspect of L2 and superior aspect of L5. The high-speed cutting drill bit as well as 2, 3 and 4-mm Kerrisons were then used to perform laminectomy which extended out to the medial aspec t of the facet joints. After complete decompression, the wound was irrigated. Hemostasis was maint ained throughout. The wound was then closed in anatomic layers and a pressure dressing was applied. There were no known procedural complications.
--- NOTE | 2016-12-27 06:40 | DIS ---
DATE OF ADMISSION: 12/13/2016 DATE OF DISCHARGE: 12/21/2016 ADMITTING DIAGNOSES: 1. Lumbar spinal stenosis with spondylolisthesis at L3-L4. 2. End-stage renal disease. 3. Hypertension uncontrolled, improved. 4. Insulin-dependent diabetes mellitus. 5. Encephalopathy. FINAL DIAGNOSES: 1. Lumbar spinal stenosis with spondylolisthesis at L3-L4, status post lumbar decompression multilevel, and posterolateral instrumented fusion. 2. Hypertension uncontrolled, improved. 3. Encephalopathy, improved. 4. Seizures, ruled out. 5. Diabetes mellitus. 6. End-stage renal disease, on hemodialysis. BRIEF SUMMARY OF HOSPITAL COURSE: Ms. Gallegos is a 71-year-old female admitted for surgery for lumbar spinal stenosis. After surgery , the patient had some change in mental status, which she developed during her dialysis. During dialysis, she had like shaking of head, and jerking movements of the head. So initially thought it could be seizure and Neurology consult was done. The patient was seen by Dr. Roe. He suspected it could be focal seizures and advised MRI of the brain without contrast, and start Keppra if seizures return. MRI of the brain was done, and it was unremarkable. There is no more seizures, but the patient refused dialysis for a day, but she agreed to go for dialysis next day and her IV morphine was stopped because she was very sedated. Later she became more awake, and she started to eat better. She continued to have dialysis. Her mental status improved though speech was still a little bit slow, but she was able to communicate, and she was started on physical therapy and slowly she improved on physical therapy. She is able to ambulate few steps with physical therapy. Meanwhile, she was continued on hemodialysis. Her blood pressure was uncontrolled. Hydralazine was added to her medications after which her blood pressure was controlled. So the patient has improved in view of that and the patient is still not able to ambulate by herself. She was evaluated for inpatient rehabilitation. She was accepted at [facility], so she is being discharged. At the time of discharge, she was stable. Her vital signs were stable. Lungs are clear. Heart sounds regular. Abdomen is soft and nontender. Bowel sounds present. DISCHARGE MEDICATIONS: Include Renvela 4 tablets t.i.d. 800 mg, lovastatin 40 mg at bedtime, aspirin 325 mg daily, Imdur 30 mg daily, Plavix 75 mg daily, diltiazem 60 mg t.i.d., Coreg 25 b.i.d., hydralazine 100 mg b.i.d., lisinopril 20 mg b.i.d., ranitidine 150 daily, Tylenol with codeine #3 one q.6. hours p.r.n., MiraLax 17 g daily, Mucinex 600 b.i.d. FOLLOWUP: The patient will continue physical therapy at the rehabilitation. AMEE
== END 2016-12-21 16:30 | DRG 515 ==
LOC: SDC 07:14 → ONC 13:08 → SDC 16:34 → OBSVTOIN 12-15 12:11
PROVIDERS: ADMIT Internal Medicine; ATTEND Neurological Surgery
PROC: 01NB0ZZ Release Lumbar Nerve, Open Approach (ICD-10-PCS; principal; 2016-12-13)
PROC: 30233N1 Transfusion of Nonautologous Red Blood Cells into Peripheral Vein, Percutaneous Approach (ICD-10-PCS; 2016-12-13)
PROC: 02HV33Z Insertion of Infusion Device into Superior Vena Cava, Percutaneous Approach (ICD-10-PCS; 2016-12-13)
PROC: 5A1D70Z Performance of Urinary Filtration, Intermittent, Less than 6 Hours Per Day (ICD-10-PCS; 2016-12-14)
DX: M48.062 Spinal stenosis, lumbar region with neurogenic claudication (principal); N18.6 End stage renal disease; G93.40 Encephalopathy, unspecified; E11.22 Type 2 diabetes mellitus with diabetic chronic kidney disease; I12.0 Hypertensive chronic kidney disease with stage 5 chronic kidney disease or end stage renal disease; E87.5 Hyperkalemia; D63.1 Anemia in chronic kidney disease; R25.3 Fasciculation; M43.16 Spondylolisthesis, lumbar region; Z99.2 Dependence on renal dialysis; Z79.4 Long term (current) use of insulin; E78.5 Hyperlipidemia, unspecified; M10.9 Gout, unspecified
CPT/HCPCS: 36416; 36430; 70551; 71010; 76001; 80048; 82140; 82805; 84132; 85025; 85610; 85730; 86850; 86900; 86901; 87340; 90935; 95816; 95819; 96374; A4216; G0257; G8978-GP-CM; G8979-GP-CJ; G8987-GO-CM; G8988-GO-CK; J0360; J0670; J1100; J1200; J1644; J1815; J1940; J2001; J2060; J2270; J2405; J2704; J3010; P9016

== ENCOUNTER 2017-01-30 13:33 | Outpatient (CLI) | payer MEDICARE ==
--- NOTE | 2017-01-30 16:08 | CT ---
CT LUMBAR SPINE: History: Lumbar radiculopathy. Technique: Axial images are obtained with coronal and sagittal reconstructions. FINDINGS: There is marked atherosclerotic calcification of the aorta, iliac arteries, as well as SMA and celiac arteries. The patient has had previous laminectomies involving the L3 and L4 posterior elements. There has been spinus process resection of the L3 vertebra partially. T12-L1: Vacuum disc change is seen. The central canal and neural foramina are patent. L1-2: Unremarkable. L2-3: Vacuum disc changes seen. There is bilateral facet hypertrophy. There is a broad based disc bul ge. This results in mild but not significant degree of central and lateral recess stenosis. L3-4: Vacuum disc change is seen at this level. There is a broad based disc bulge. Posterior laminect tc changes are seen. No definite evidence of osseous encroachment seen in the L3-4 central canal. L4-5: There is disc space height loss. Endplate irregularity seen in the inferior endplate of L4 and superior endplate of L5. There is a broad based disc osteophyte complex centrally compressing the the mik sac anteriorly. There also appears to be severe bilateral L4-5 neural foraminal narrowing due to the anterolisthesis of L4 on L5 as well as the severe facet hypertrophy at this level. L5-S1: Vacuum disc changes seen at this level. There is a broad based disc bulge. Bilateral facet hyp ertrophy is seen. Central canal demonstrates moderate narrowing. There is moderate bilateral neural f oraminal narrowing due to facet hypertrophy as well as the broad based disc bulge. IMPRESSION: L4-5 disc space height loss with endplate irregularity and neural foraminal narrowing bilaterally. POS: JUVENTINO
== END 2017-01-30 13:34 | disposition home or self-care (01) ==
LOC: TBSIIMAG 13:33
PROVIDERS: ATTEND Neurological Surgery
DX: M54.16 Radiculopathy, lumbar region (principal); M48.061 Spinal stenosis, lumbar region without neurogenic claudication
CPT/HCPCS: 72131

== ENCOUNTER 2017-06-27 07:17 | Inpatient (IN) | payer MEDICARE ==
[2017-06-27 07:51] LABS: #Eosinphils 0.2 thou/uL (0.0-0.7); #Monocytes 0.5 thou/uL (0.11-0.59); #Neutrophils 10.4 thou/uL (1.40-6.50); %Basophils 0.4 % (0.0-1.0); %Eosinophils 1.5 % (0.0-10.0); %Lymphocytes 8.1 % (21.0-51.0); %Monocytes 4.3 % (0.0-10.0); %Neutrophils 85.8 % (42.0-75.0); Mean Corpuscular HGB CONC 31.4 g/dL (32.0-36.0); Mean Corpuscular Hemoglobin 32.4 pg (27.0-31.0); Mean Platelet Volume 7.1 fL (7.4-10.4); Platelet Count 251 thou/uL (130-400); Red Blood Cell (RBC) Count 3.72 mill/uL (4.20-5.40); White Blood Cell (WBC) Count 12.1 thou/uL (4.8-10.8)
[2017-06-27 08:10] LABS: ALT (SGPT) Less than 7 U/L (8-55); AST (SGOT) 13 U/L (5-34); Albumin 3.8 g/dL (3.4-4.8); Alkaline Phosphatase 81 U/L (40-150); Anion Gap 17 mmol/L (10-20); BUN (Urea Nitrogen) 48 mg/dL (9.8-20.1); Bilirubin, Total 0.3 mg/dL (0.2-1.2); Calc. Creatinine Clearance 0 mL/min (70-130); Calcium 9.4 mg/dL (7.8-10.44); Carbon Dioxide 32 mmol/L (23-31); Chloride 100 mmol/L (98-107); Estimated GFR-MDRD 5; Glucose 110 mg/dL (83-110); Potassium 3.6 mmol/L (3.5-5.1); Protein, Total 6.8 g/dL (6.0-8.3); Sodium 145 mmol/L (136-145)
[2017-06-27 08:50] LABS: CKMB 1.5 ng/mL (0-6.6); Troponin I 0.018 ng/mL (< 0.028)
--- NOTE | 2017-06-27 09:26 | RAD ---
PORTABLE UPRIGHT FRONTAL CHEST RADIOGRAPH: DATE: 06/27/17. COMPARISON: 12/13/16. HISTORY: Fall, altered mental status. FINDINGS: There is atherosclerotic calcification of the thoracic aorta. There are midline sternotomy wires. T here is no pneumothorax or pleural fluid. No focal consolidation or alveolar edema is noted. There is a rounded area of subtle increased density in the mid right lung zone which overlies the anterior aspect of the right 5th rib and the posterior aspect of the right 7th rib, likely osseous in nature. IMPRESSION: No acute findings. POS: SERJIO
[2017-06-27 12:33] VITALS: BMI 29.0
[2017-06-27] MEDS ORDERED: traMADol HCl 50 MG TAB PO SCH (16:30)
[2017-06-27] MEDS ORDERED: Acetaminophen 325 MG TAB PO PRN (18:18)
[2017-06-27] MEDS ORDERED: Polyethylene Glycol 3350 17 GM Packet PO PRN (18:23)
[2017-06-27] MEDS ORDERED: Sevelamer Carbonate 800 MG TAB PO PRN (18:25)
[2017-06-27] MEDS: Carvedilol 25 MG TAB PO SCH (19:46)
[2017-06-27] MEDS: Famotidine 20 MG TAB PO SCH (19:46)
[2017-06-27] MEDS: hydrALAZINE 25 MG TAB PO SCH (19:47)
[2017-06-27] MEDS: Lovastatin 20 MG TAB PO SCH (19:47)
[2017-06-27] MEDS ORDERED: PSEUDOEPHEDRINE PO SCH (21:00)
[2017-06-27] MEDS ORDERED: GUAIFENESIN PO SCH (21:00)
[2017-06-27] MEDS: traMADol HCl 50 MG TAB PO PRN (22:05)
--- NOTE | 2017-06-28 08:06 | CON ---
DATE OF CONSULTATION: 06/27/2017 NEPHROLOGY CONSULTATION CONSULTING PHYSICIAN: Dr. Oden. REASON FOR CONSULTATION: End-stage renal disease evaluation and care. REASON FOR ADMISSION: Altered mentation. HISTORY OF PRESENT ILLNESS: A 71-year-old female with history of end-stage renal disease on hemodial ysis Sunday, Sunday, Sunday; coronary artery disease; congestive heart failure, who was found down at her home this morning. Patient was getting ready to get dialysis. Patient was found on the floo r of the bathroom and her pulse was low and she was taken to the hospital. Patient was seen during d ialysis and she does not remember most of it and no fever, chills. No nausea, vomiting reported. Sh e is having some leg pain. PAST MEDICAL HISTORY: Positive for end-stage renal disease, coronary artery disease, congestive hear t failure, type 2 diabetes. PAST SURGICAL HISTORY: Cardiac stent placement, appendectomy, bypass surgery, dialysis shunt placeme nt, hysterectomy. HOME MEDICATIONS: Levemir, Tylenol, Miralax, , Cardizem, Plavix, hydralazine, Renvela, Hytrin, tramadol. ALLERGIES: No known drug allergies. SOCIAL HISTORY: No smoking, alcohol, or illicit drugs. FAMILY HISTORY: No history of kidney disease. REVIEW OF SYSTEMS: The following complete review of systems was negative, unless otherwise mentioned in the HPI or below: Constitutional: Weight loss or gain, ability to conduct usual activities. Sk in: Rash, itching. Eyes: Double vision, pain. ENT/Mouth: Nose bleeding, neck stiffness, pain, te nderness. Cardiovascular: Palpitations, dyspnea on exertion, orthopnea. Respiratory: Shortness of breath, wheezing, cough, hemoptysis, fever, or night sweats. Gastrointestinal: Poor appetite, abdo patty pain, heartburn, nausea, vomiting, constipation, or diarrhea. Genitourinary: Urgency, frequen cy, dysuria, nocturia. Musculoskeletal: Pain, swelling. Neurologic/Psychiatric: Anxiety, depressi on. Allergy/Immunologic: Skin rash, bleeding tendency. PHYSICAL EXAMINATION: GENERAL: This is an elderly female in no apparent distress. VITAL SIGNS: Temperature 98.0, pulse 74, respiratory rate 18. HEENT: Atraumatic, normocephalic. Oral mucosa is moist. NECK: Supple. CV: S1, S2 heard. Rate and rhythm regular. RESPIRATORY: . MUSCULOSKELETAL: 1+ edema. DERMATOLOGIC: No skin rash. NEUROLOGIC: Alert, awake. PSYCHIATRIC: Normal mood and affect. LABORATORY DATA: Hemoglobin is 7.0. Potassium is 3.6, BUN is 48, creatinine is 8.95. ASSESSMENT AND PLAN: 1. End-stage renal disease. We will continue on dialysis Sunday, Sunday, and Sunday. 2. Edema, controlled. 3. Hypertension. 4. Anemia, stable. Plan is to continue on dialysis as tolerated. Patient was seen during dialysis, tolerating well and was complaining of pain. We will give one dose of tramadol during dialysis. Blood pressure remains high. We will reevaluate after tramadol, okay with clonidine, and continue home medication, and titr ate medication if needed. Thank you for the consult.
[2017-06-28] MEDS: Sevelamer Carbonate 800 MG TAB PO SCH ×3 (08:22→16:39)
[2017-06-28] MEDS: hydrALAZINE 25 MG TAB PO SCH ×2 (08:22→20:55)
[2017-06-28] MEDS: Carvedilol 25 MG TAB PO SCH ×2 (08:23→20:55)
[2017-06-28] MEDS: Aspirin 325 mg Enteric Coated Tablet PO SCH (08:23)
[2017-06-28] MEDS: Clopidogrel Bisulfate 75 MG TAB PO SCH (08:23)
[2017-06-28] MEDS ORDERED: Dextrose 5% in Water 1,000 ML IV PRN (10:54)
[2017-06-28] MEDS ORDERED: Dextrose 50% Abboject 50 ML SYRINGE IVP PRN (10:54)
[2017-06-28] MEDS ORDERED: HumaLOG 300 UNITS/3 ML VIAL SC PRN (10:54)
--- NOTE | 2017-06-28 13:26 | HP ---
DATE OF ADMISSION: 06/27/2017 CHIEF COMPLAINT: Hypoglycemia. HISTORY OF PRESENT ILLNESS: Ms. Gallegos is a 71-year-old -[place] female with past medical h istory of diabetes mellitus, hypertension, and end-stage renal disease who was found to have hypoglyc emia. The patient was found by her family in the house passed out. The patient remembers getting re chavo for dialysis and was getting voice for the dialysis and after that she does not remember anything . Her grandson and son found her on the floor of the bathroom tub unconscious. EMS was called in. They did not move her because of her recent back surgery and her blood sugar was 19 by the EMS, so sh e received D50 and the blood sugar went up to 130 in the ER. When the patient woke up, she was in th e ambulance. The patient also received glucagon by the EMS. In the ER, the patient was evaluated an d is admitted for further management of hypoglycemia. PAST MEDICAL HISTORY: 1. End-stage renal disease, on hemodialysis. 2. Diabetes mellitus. 3. Hypertension. 4. Lumbar spinal stenosis with spondylolisthesis at L3-L4, status post surgery. PAST SURGICAL HISTORY: 1. Status post stent placement. 2. Status post appendectomy. 3. Status post cardiac bypass surgery. 4. Status post dialysis shunt placement. 5. Status post hysterectomy. 6. Status post spinal surgery. CURRENT MEDICATIONS: Patient is on vitamin D 5000 units daily, aspirin 325 mg daily, Tylenol p.r.n., Renvela 800 mg 4 tablets with each meal, lisinopril 20 mg b.i.d., Levemir insulin 15 units daily, Pl avix 75 mg daily, Coreg 25 mg b.i.d., hydralazine 50 mg t.i.d., diltiazem 60 mg t.i.d., Imdur 30 mg d aily, tramadol p.r.n., lovastatin 40 mg at bedtime, Zantac 150 b.i.d. ALLERGIES: No known drug allergies. FAMILY HISTORY: Nothing of interest. SOCIAL HISTORY: Patient lives with family. No history of smoking. No history of alcohol intake. REVIEW OF SYSTEMS: Cardiovascular: No chest pain. No shortness of breath. Respiratory: No fever or cough. Gastrointestinal: No nausea or vomiting. No abdominal pain. Genitourinary: No dysuria or hematuria. Central Nervous System: No headache, no dizziness. PHYSICAL EXAMINATION: GENERAL: The patient is alert, awake, oriented x3. VITAL SIGNS: Temperature 98, pulse 74, respirations 20, blood pressure low 60s-80s. HEENT: Head is normocephalic, atraumatic. Pupils are equal and reactive to light. Nasopharynx is p daniel and dry. Hard and soft palate, no lesions seen. SKIN: Skin turgor decreased. NECK: Supple. No JVD. LUNGS: Bilateral air entry present, no rales, no rhonchi. CARDIAC: S1, S2 regular. ABDOMEN: Soft, no distention, no tenderness. Normal bowel sounds present. RECTAL: Deferred. CENTRAL NERVOUS SYSTEM: The patient is alert, awake, oriented x3. Motor system power 4/5 in all ext remities. Deep tendon reflexes 2+ bilaterally. Plantar downgoing. Sensory intact. LABORATORY DATA AND X-RAY FINDINGS: CBC shows WBC 12, hemoglobin 12, hematocrit 38, platelets 251. Metabolic panel shows sodium 144, potassium 3.6, chloride 100, CO2 of 32, BUN 48, creatinine 8.9, glu cose 110. Chest x-ray, no acute findings. ASSESSMENT: 1. Severe hypoglycemia, symptomatic. 2. Syncope secondary to #1. 3. Hypertension, uncontrolled. 4. Diabetes mellitus. 5. End-stage renal disease on hemodialysis. 6. History of spinal stenosis status post surgery. PLAN: 1. Vital signs q.4 hours. 2. Activity: As tolerated. 3. Allergies: No known drug allergies. 4. Hep-Lock. 5. Accu-Chek q.2 hours. 6. Continue home medications. 7. Hold Levemir. 8. Nephrology consult.
--- NOTE | 2017-06-28 18:01 | PRG ---
DATE OF SERVICE: 06/28/2017 SUBJECTIVE: Patient was seen and examined at bedside and overnight events noted. Patient denies any shortness of breath or chest pain or palpitation. No history of nausea or vomiting or diarrhea or f ever or chills or cramps. OBJECTIVE: GENERAL: This is a well-built female in no apparent distress. VITAL SIGNS: Temperature 98.2, pulse 72, respiratory rate 16, blood pressure 125/55. HEENT: Atraumatic, normocephalic. Oral mucosa is moist. NECK: Supple. CARDIOVASCULAR: S1, S2 heard. Rate and rhythm regular. RESPIRATORY: Clear to auscultation. GASTROINTESTINAL: Abdomen is soft. MUSCULOSKELETAL: No tenderness. No edema. DERMATOLOGIC: No skin rash. NEUROLOGIC: Alert and awake and oriented x3. No focal neurologic deficits. Moving all the extremiti es. PSYCHIATRIC: Mood and affect normal. LABORATORY DATA: Not done today. ASSESSMENT AND PLAN: 1. End-stage renal disease, continue on hemodialysis Sunday, Sunday, and Sunday. 2. Edema, controlled. 3. Hypertension, stable. 4. Anemia. Monitor hemoglobin. 5. We will continue on dialysis as tolerated Sunday, Sunday, and Sunday.
[2017-06-28] MEDS ORDERED: Ondansetron ODT 4 MG TAB PO PRN (18:49)
[2017-06-28] MEDS: Lovastatin 20 MG TAB PO SCH (20:54)
[2017-06-28] MEDS: Famotidine 20 MG TAB PO SCH (20:55)
[2017-06-29] MEDS: traMADol HCl 50 MG TAB PO PRN ×2 (04:54→12:57)
[2017-06-29] MEDS: Sevelamer Carbonate 800 MG TAB PO SCH ×3 (08:52→17:03)
[2017-06-29] MEDS: Clopidogrel Bisulfate 75 MG TAB PO SCH (08:53)
[2017-06-29] MEDS: Carvedilol 25 MG TAB PO SCH (08:53)
[2017-06-29] MEDS: Aspirin 325 mg Enteric Coated Tablet PO SCH (08:53)
[2017-06-29] MEDS: hydrALAZINE 25 MG TAB PO SCH (08:53)
--- NOTE | 2017-06-29 11:47 | PRG ---
Patient Name: ROBERT HOFFMANN Date of service: 06/29/2017 Subjective: Patient was seen and examined at bedside and overnight events noted. Patient denies any shortness of breath or chest pain or palpitation. No history of nausea or vomiting or diarrhea or fever or chills or cramps. Objective: General: This is a well-built female in no apparent distress. Vital signs: Temperature 98.1, pulse 60, respiratory rate 16, blood pressure 161/66. HEENT: Atraumatic, normocephalic. Oral mucosa is moist. Neck: Supple. Cardiovascular: S1 S2 heard. Rate and rhythm regular. Respiratory: Clear to auscultation. Gastrointestinal: Abdomen is soft. Musculoskeletal: No tenderness. No edema. Dermatologic: No skin rash Neurologic: Alert and awake and oriented X3. No focal neurologic deficits. Moving all the extremit ies. Psychiatric: Mood and affect normal. LABORATORY DATA: None done today. ASSESSMENT AND PLAN: 1. End-stage renal disease on hemodialysis Sunday, Sunday and Sunday. 2. Edema, controlled. 3. Hypertension. 4. Anemia. The plan is to continue on dialysis Sunday, Sunday, and Sunday.
[2017-06-29 16:22] VITALS: BP 123/82; TEMP 97.8
--- NOTE | 2017-07-02 08:56 | DIS ---
ADMITTING DIAGNOSES: 1. Severe hypoglycemia, symptomatic. 2. Syncope secondary to #1. 3. Hypertension, uncontrolled. 4. Diabetes mellitus. 5. End-stage renal disease, on hemodialysis FINAL DIAGNOSES: 1. Severe hypoglycemia, symptomatic, improved. Her insulin was stopped. 2. Syncope secondary to #1. 3. Hypertension, uncontrolled, improved. 4. Diabetes mellitus. 5. Hematuria. 6. On hemodialysis. BRIEF SUMMARY OF HOSPITAL COURSE: Ms. Gallegos is a 71-year-old female admitted nomi use of syncopal episode. The patient was hypoglycemic. The patient responded to D50. After admissi on, the patient's blood glucose was monitored and her sugars improved. Her insulin, Levemir was held and she was started on diet and she tolerated diet very well. Her sugars remained around 116-140. Initially her blood pressure was elevated, but it improved with adjustment of medications. The gladys nt is being discharged home in view of improvement. At the time of discharge, she was stable. Her vital signs were stable. Lungs clear to auscultation. Heart sounds regular. Abdomen is soft, nont patricia. Bowel sounds present. DISCHARGE MEDICATIONS: Include Renvela 800 mg 4 tablets t.i.d., lovastatin 40 mg daily, aspirin 325 mg daily, Imdur 60 mg daily, Plavix 75 mg daily, Cardizem 1 tablet b.i.d. 60 mg, Coreg 25 b.i.d., hyd ralazine 50 mg 2 tablets b.i.d., lisinopril 20 mg b.i.d., ranitidine 1 tablet b.i.d. 150 mg, Tylenol with codeine was discontinued. Tylenol p.r.n., MiraLax 17 grams daily, and tramadol p.r.n. Her Leve noah was discontinued. DISCHARGE INSTRUCTIONS: The patient will come for followup in 2 weeks. She will continue with hemod ialysis 3 times a week.
== END 2017-06-29 18:36 | disposition home or self-care (01) | DRG 638 ==
LOC: ERS 07:17 → IMCU/EMU 08:46 → T4-A 06-28 18:02
PROVIDERS: ADMIT Internal Medicine; ATTEND Internal Medicine
PROC: 5A1D70Z Performance of Urinary Filtration, Intermittent, Less than 6 Hours Per Day (ICD-10-PCS; 2017-06-27)
PROC: 5A1D70Z Performance of Urinary Filtration, Intermittent, Less than 6 Hours Per Day (ICD-10-PCS; principal; 2017-06-29)
DX: E11.649 Type 2 diabetes mellitus with hypoglycemia without coma (principal); I12.0 Hypertensive chronic kidney disease with stage 5 chronic kidney disease or end stage renal disease; E11.22 Type 2 diabetes mellitus with diabetic chronic kidney disease; N18.6 End stage renal disease; M48.061 Spinal stenosis, lumbar region without neurogenic claudication; M43.16 Spondylolisthesis, lumbar region; R55 Syncope and collapse; Z90.49 Acquired absence of other specified parts of digestive tract; Z95.1 Presence of aortocoronary bypass graft; Z95.5 Presence of coronary angioplasty implant and graft; Z90.710 Acquired absence of both cervix and uterus; Z99.2 Dependence on renal dialysis
CPT/HCPCS: 36415; 36416; 71045; 80053; 82553; 84484; 85025; 90935; 93005; G0257

== ENCOUNTER 2017-07-07 11:51 | Inpatient (IN) | payer MEDICARE ==
[2017-07-07 12:34] LABS: #Lymphocytes 0.8 thou/uL (1.20-3.40); #Monocytes 0.2 thou/uL (0.11-0.59); #Neutrophils 6.2 thou/uL (1.40-6.50); %Eosinophils 0.3 % (0.0-10.0); %Lymphocytes 11.3 % (21.0-51.0); %Monocytes 3.2 % (0.0-10.0); %Neutrophils 85.2 % (42.0-75.0); Hemoglobin 13.5 g/dL (12.0-16.0); Mean Corpuscular HGB CONC 33.1 g/dL (32.0-36.0); Mean Corpuscular Hemoglobin 33.1 pg (27.0-31.0); Mean Platelet Volume 6.8 fL (7.4-10.4); Platelet Count 287 thou/uL (130-400); RBC Distribution Width 12.6 % (11.5-14.5); Red Blood Cell (RBC) Count 4.09 mill/uL (4.20-5.40); White Blood Cell (WBC) Count 7.2 thou/uL (4.8-10.8)
[2017-07-07 12:40] LABS: Bilirubin Negative (Negative); Blood, Urine Trace (Negative); Clarity CLOUDY (Clear); Glucose, Urine (Dipstick) Negative (Negative); Leukocyte Moderate (Negative); Nitrite Negative (Negative); Protein, Urine (Dipstick) 100 mg/dL (Neg-Trace); Urobilinogen 0.2 mg/dL (0.2-1.0); pH, Urine 7.5 (5.0-9.0)
[2017-07-07 12:42] LABS: Bacteria/HPF None Seen HPF (None Seen); Hyaline Casts/LPF 4-6 HYALINE CAST LPF (0-3 Hyaline); Pathc Cast-AUWi Flag 1.45 (0-2.49); WBC/HPF 21-50 HPF (0-3)
[2017-07-07 12:55] LABS: Renal Epithelial None Seen HPF (0-3); Transitional Epithelial NONE SEEN HPF (0-3)
[2017-07-07 12:57] LABS: Anion Gap 18 mmol/L (10-20); BUN (Urea Nitrogen) 51 mg/dL (9.8-20.1); Calc. Creatinine Clearance 0 mL/min (70-130); Calcium 9.7 mg/dL (7.8-10.44); Carbon Dioxide 26 mmol/L (23-31); Chloride 102 mmol/L (98-107); Estimated GFR-MDRD 6; Glucose 124 mg/dL (83-110); Potassium 4.6 mmol/L (3.5-5.1); Sodium 141 mmol/L (136-145)
[2017-07-07] MEDS ORDERED: cefTRIAXone\\ROCEPHIN 2 GM in Sodium Chloride 0.9% 100 ML IVPB ONE (13:45)
--- NOTE | 2017-07-07 14:08 | CT ---
CT OF THE ABDOMEN AND PELVIS: DATE: 07/07/17. PROVIDED CLINICAL HISTORY: Abdominal pain. FINDINGS: Comparison is made with the examination performed 04/06/12. Comparison is also performed with the CT examination of the lumbar spine performed 01/30/17. The visualized lung bases appear free of significant opacity. There has been interval development of a cystic lesion at the superior pole of the right kidney measu ring about 3.5 cm in greatest dimension. This is incompletely characterized without IV contrast. Th e solid abdominal organs demonstrate an otherwise unremarkable unenhanced CT appearance. There is mo derate nonspecific gallbladder distention without overt pericholecystic inflammatory change. There is evidence for prevertebral fat stranding about the L3-4 and L4-5 levels. Postoperative mauro es are seen in these regions. These stranding changes appear similar to the 01/30/17 examination. There is no bowel dilatation, additional inflammatory fat stranding, free fluid, or free air apparent . There is conspicuous rectal fecal retention . Numerous surgical clips are seen within the pelvis. Degenerative changes are seen involving the lumbar spine. End plate irregularity is present at L3-4, L2-3, and L4-5. Similar to the prior study. Extensive atherosclerotic vascular calcification is noted involving the abdominal aorta and its branc hes. IMPRESSION: 1. Fat stranding about the lower lumbar spine, similar to the prior CT examination. If there is con cern for an infectious process, consider MRI. 2. Right renal cystic lesion incompletely characterized without IV contrast. Followup examination o f the abdomen utilizing IV contrast is recommended. 3. Moderate nonspecific gallbladder distention. 4. Other chronic findings as above. POS: [facility]
[2017-07-07] MEDS ORDERED: hydrALAZINE 20 MG/ML VIAL ONE (15:54)
[2017-07-07 18:19] VITALS: BMI 27.0
[2017-07-07] MEDS ORDERED: Acetaminophen ER (8hr) 650 MG TAB PO PRN (18:48)
[2017-07-07] MEDS ORDERED: Acetaminophen/Codeine 30-300mg Tablet PO PRN (18:48)
[2017-07-07] MEDS ORDERED: Famotidine 20 MG TAB PO PRN (18:50)
[2017-07-07] MEDS ORDERED: Polyethylene Glycol 3350 17 GM Packet PO PRN (18:50)
[2017-07-07] MEDS: hydrALAZINE 25 MG TAB PO SCH (21:18)
[2017-07-07] MEDS: Carvedilol 25 MG TAB PO SCH (21:18)
[2017-07-07] MEDS: Lisinopril 20 MG TAB PO SCH (21:19)
[2017-07-07] MEDS: traMADol HCl 50 MG TAB PO PRN (21:19)
[2017-07-07] MEDS: Lovastatin 20 MG TAB PO SCH (21:19)
[2017-07-08] MEDS: Aspirin 325 MG TAB PO SCH (09:22)
[2017-07-08] MEDS: Lisinopril 20 MG TAB PO SCH ×2 (09:22→20:21)
[2017-07-08] MEDS: Sevelamer Carbonate 800 MG TAB PO SCH ×3 (09:22→17:05)
[2017-07-08] MEDS: hydrALAZINE 25 MG TAB PO SCH ×2 (09:22→20:22)
[2017-07-08] MEDS: Carvedilol 25 MG TAB PO SCH ×2 (09:22→20:21)
[2017-07-08] MEDS: Clopidogrel Bisulfate 75 MG TAB PO SCH (09:24)
[2017-07-08] MEDS ORDERED: Dextrose 50% Abboject 50 ML SYRINGE IVP PRN (18:38)
[2017-07-08] MEDS ORDERED: Dextrose 5% in Water 1,000 ML IV PRN (18:38)
[2017-07-08] MEDS ORDERED: Insulin Regular 300 UNITS/3 ML VIAL SC PRN (18:38)
[2017-07-08] MEDS: Lovastatin 20 MG TAB PO SCH (20:21)
[2017-07-08] MEDS: traMADol HCl 50 MG TAB PO PRN (21:05)
[2017-07-09] MEDS: traMADol HCl 50 MG TAB PO PRN ×2 (03:52→13:56)
[2017-07-09] MEDS: Sevelamer Carbonate 800 MG TAB PO SCH ×3 (08:07→18:07)
[2017-07-09] MEDS: Aspirin 325 MG TAB PO SCH (08:09)
[2017-07-09] MEDS: Carvedilol 25 MG TAB PO SCH (08:09)
[2017-07-09] MEDS: Clopidogrel Bisulfate 75 MG TAB PO SCH (08:09)
[2017-07-09] MEDS: hydrALAZINE 25 MG TAB PO SCH (09:00)
[2017-07-09] MEDS: Lisinopril 20 MG TAB PO SCH (09:00)
--- NOTE | 2017-07-09 11:03 | CON ---
DATE OF CONSULTATION: 07/09/2017 REFERRING PHYSICIAN: Dr. Sevilla REASON FOR CONSULTATION: End-stage renal disease. REASON FOR ADMISSION: Altered mentation with hypoglycemia. HISTORY OF PRESENT ILLNESS: A 71-year-old female with history of end-stage renal disease, frequent h ypoglycemia, coronary artery disease, congestive heart failure, type 2 diabetes, hypertension who cam e to the hospital with altered mentation. The patient was found with altered mentation and was unres ponsive with a glucose of 227 and was brought to the hospital. The patient gets dialysis Sunday, Sun, and Sunday. Nephrology was consulted for maintenance hemodialysis. The patient denies any n ausea, vomiting, no shortness of breath or chest pain. No fever or chills reported. No skin rash. PAST MEDICAL HISTORY: End-stage renal disease, coronary artery disease, CHF, type 2 diabetes, hypert ension. PAST SURGICAL HISTORY: Cardiac stents, coronary artery bypass graft, dialysis access placement, hyst erectomy. HOME MEDICATIONS: Include Renvela, MiraLax, arthritis medicines, isosorbide mononitrate, Cardizem, P lavix, carvedilol, lisinopril, Tramadol. ALLERGIES: No known drug allergies. SOCIAL HISTORY: No smoking, alcohol or drug use. FAMILY HISTORY: No history of kidney disease. REVIEW OF SYSTEMS: The following complete review of systems was negative, unless otherwise mentioned in the HPI or below: Constitutional: Weight loss or gain, ability to conduct usual activities. Skin: Rash, itching. Eyes: Double vision, pain. ENT/Mouth: Nose bleeding, neck stiffness, pain, tenderness. Cardiovascular: Palpitations, dyspnea on exertion, orthopnea. Respiratory: Shortness of breath, wheezing, cough, hemoptysis, fever or night sweats. Gastrointestinal: Poor appetite, abdominal pain, heartburn, nausea, vomiting, constipation, or diarrhea. Genitourinary: Urgency, frequency, dysuria, nocturia. Musculoskeletal: Pain, swelling. Neurologic/Psychiatric: Anxiety, depression. Allergy/Immunologic: Skin rash, bleeding tendency. PHYSICAL EXAMINATION: GENERAL: This is a well-built female in no apparent distress. VITAL SIGNS: Temperature 97.3, pulse 63, respiratory 18, blood pressure 166/67. HEENT: Atraumatic, normocephalic. Oral mucosa is moist. NECK: Supple, no masses. HEART: S1, S2 heard. Normal rate and rhythm regular. RESPIRATORY: Clear. ABDOMEN: Soft. MUSCULOSKELETAL: 1+ edema. DERMATOLOGIC: No skin rash. NEUROLOGIC: Alert and awake. PSYCHIATRIC: Mood and affect normal. LABORATORY AND X-RAY FINDINGS: Potassium 4.7. ASSESSMENT AND PLAN: 1. End-stage renal disease, currently on dialysis Sunday, Sunday, and Sunday. Dialysis nurse not ified. 2. Anemia. Hemoglobin is stable. 3. Edema, controlled. 4. Hypertension. Continue home medication. Remove fluid with dialysis as tolerated. 5. Altered mentation, better. Follow up with primary team. The plan is to have dialysis Sunday, Sunday, and Sunday. Thank you for the consult.
[2017-07-09 11:46] VITALS: BP 148/72; TEMP 97.4
[2017-07-09 15:05] LABS: #Basophils 0.1 thou/uL (0.0-0.2); #Eosinphils 0.3 thou/uL (0.0-0.7); #Lymphocytes 1.6 thou/uL (1.20-3.40); #Monocytes 0.8 thou/uL (0.11-0.59); #Neutrophils 4.4 thou/uL (1.40-6.50); %Eosinophils 4.8 % (0.0-10.0); %Monocytes 10.7 % (0.0-10.0); %Neutrophils 61.4 % (42.0-75.0); Mean Corpuscular HGB CONC 33.8 g/dL (32.0-36.0); Mean Corpuscular Hemoglobin 33.3 pg (27.0-31.0); Mean Corpuscular Volume 98.7 fl (81.0-99.0); Mean Platelet Volume 7.6 fL (7.4-10.4); Platelet Count 284 thou/uL (130-400); RBC Distribution Width 12.5 % (11.5-14.5); Red Blood Cell (RBC) Count 2.99 mill/uL (4.20-5.40); White Blood Cell (WBC) Count 7.2 thou/uL (4.8-10.8)
[2017-07-09 15:17] LABS: Anion Gap 18 mmol/L (10-20); BUN (Urea Nitrogen) 74 mg/dL (9.8-20.1); Calc. Creatinine Clearance 5 mL/min (70-130); Calcium 8.9 mg/dL (7.8-10.44); Carbon Dioxide 28 mmol/L (23-31); Chloride 95 mmol/L (98-107); Estimated GFR-MDRD 4; Glucose 115 mg/dL (83-110); Potassium 4.9 mmol/L (3.5-5.1); Sodium 136 mmol/L (136-145)
[2017-07-09 16:20] LABS: HBSAg Index 0.22 S/CO (0-0.99); Hep B Surf Ag Non-Reactive S/CO (NonReactive)
--- NOTE | 2017-07-09 18:46 | HP ---
DATE OF ADMISSION: 07/07/2017 CHIEF COMPLAINT: Severe hypoglycemia. HISTORY OF PRESENT ILLNESS: Ms. Gallegos is a 71-year-old -[place] female with past medical history of diabetes, hypertension and end-stage renal disease, was found to be unconscious. The patient has taken Levemir insulin in the night, and by morning she was conscious. She took the insulin because of her sugar was around 300 before that, but she had a similar episode of hypoglycemia and admitted few weeks ago. She was advised not to take the Levemir insulin. Her brother came to check on her and called the EMS. EMS found the patient with blood glucose of 27. EMS gave her 1 mg of glucagon and 200 mL of D10. The patient was noted to be hypertensive, cool and diaphoretic according to the EMS. The patient when she woke up, she was in the ambulance. In the ER, the patient was evaluated and she complained of pain in the lower abdomen. The patient also noted to have high blood pressure of 189/115 and she has had a dose of hydralazine. She was also found to have urinary tract infection with wbc of 21-50 and bacteria none, but leukocyte esterase positive. She does have pyuria. She received a dose of Rocephin and she was admitted for further evaluation and management. PAST MEDICAL HISTORY: 1. End-stage renal disease, on hemodialysis. 2. Hypertension. 3. Diabetes mellitus. 4. Hyperlipidemia. 5. Lumbar spinal stenosis, status post surgery. 6. History of hypoglycemia 2 weeks ago. PAST SURGICAL HISTORY: 1. Status post appendectomy. 2. Status post cardiac bypass surgery. 3. Status post stent placement. 4. Status post hysterectomy. 5. Status post spinal surgery. CURRENT MEDICATIONS: The patient is on vitamin D 5000 units daily, aspirin 325 mg daily, Renvela 800 mg 4 tablets with each meal, lisinopril 20 mg b.i.d., Plavix 75 mg daily, Coreg 25 b.i.d., hydralazine 50 t.i.d., diltiazem 60 t.i.d. , Imdur 30 mg daily, tramadol p.r.n., lovastatin 40 mg, Zantac 150 b.i.d. ALLERGIES: NKDA. FAMILY HISTORY: Nothing of interest. SOCIAL HISTORY: The patient lives with family. No history of smoking, no history of alcohol. REVIEW OF SYSTEMS: Cardiovascular: No chest pain. No shortness. Respiratory : No fever or cough. Gastrointestinal: No nausea or vomiting. Has abdominal pain. Genitourinary: No dysuria or hematuria. Central Nervous System: No headache. No dizziness. PHYSICAL EXAMINATION: GENERAL: The patient is alert, awake, oriented x3. VITAL SIGNS: Temperature 98, pulse 75, respirations 20, blood pressure 160/100. HEENT: Head is normocephalic, atraumatic. Pupils are equal and reactive. Nasopharynx is pale and dry. Hard and soft palate, no lesions seen. SKIN: Skin turgor decreased. NECK: Supple. No JVD. LUNGS: Bilateral air entry present. No rales, no rhonchi. HEART: S1, S2 regular. ABDOMEN: Soft, no distention, no tenderness. Normal bowel sounds present. RECTAL: Deferred. CENTRAL NERVOUS SYSTEM: No focal deficits. LABORATORY DATA: CBC shows WBC 9000, hemoglobin 13, hematocrit 41, platelets 287,000. Metabolic panel: Sodium 140, potassium 4.6, chloride 102, CO2 of 26, BUN 15, creatinine 8.07, glucose 124. Urinalysis showed wbc's 21-50, bacteria none, leukocyte esterase positive. IMAGING: CT of the abdomen, no acute findings. There is fat stranding in the lower lumbar spine with similar to the prior CT examination, also showed right renal cyst. ASSESSMENT: 1. Severe symptomatic hypoglycemia. 2. Syncope secondary to severe symptomatic hypoglycemia. 3. Uncontrolled hypertension. 4. Diabetes mellitus. 5. End-stage renal disease. 6. Possible urinary tract infection. PLAN: 1. Vital signs q.4 hours. 2. Activity: As tolerated. 3. Allergies: NKDA. 4. Hep-Lock. 5. Continue home medications. 6. Discontinue Levemir. 7. Continue hemodialysis. 8. Levaquin 250 q.48 hours. MTDD
--- NOTE | 2017-07-11 15:22 | DIS ---
DATE OF ADMISSION: 07/07/2017 DATE OF DISCHARGE: 07/09/2017 ADMITTING DIAGNOSES: 1. Severe symptomatic hypoglycemia. 2. Syncope secondary to severe symptomatic hypoglycemia. 3. Uncontrolled hypertension. 4. Diabetes mellitus. 5. End-stage renal disease. 6. Urinary tract infection. FINAL DIAGNOSES: 1. Severe symptomatic hypoglycemia, improved. 2. Syncope secondary to hypoglycemia, improved. 3. Uncontrolled hypertension, improved. 4. Urinary tract infection. 5. End-stage renal disease. 6. Diabetes mellitus. BRIEF SUMMARY OF HOSPITAL COURSE: Ms. Gallegos is a 71-year-old -Citizen Of [place] female, admitted bec ause of hypoglycemia. The patient passed out. The patient has taken Levemir insulin, which she was told not to take, but soon after that her blood sugar dropped. She became passed out, but she was fo und by her brother and who brought her to the hospital. After admission to the hospital, her Accu-Ch eks remained stable. She is eating very well, even underwent dialysis. While in the hospital, her b lood pressure was elevated, but came down after the addition of medications. The patient was also fo und to have urinary tract infection. Urine culture showed no growth. In view of improvement, the fer patel was discharged. At the time of discharge, she was stable. Her vital signs are stable. Lungs are clear. Heart sounds regular. Abdomen is soft and nontender, bowel sounds present. DISCHARGE MEDICATIONS: Include Renvela 800 mg 4 tablets t.i.d., lovastatin 40 mg at bedtime, aspirin 325 mg daily, Plavix 75 mg daily, diltiazem 60 mg t.i.d., Coreg 25 b.i.d., hydralazine 50 mg 2 table ts b.i.d., lisinopril 20 mg b.i.d., ranitidine 150 daily, Tylenol p.r.n., MiraLax 17 grams daily, tr amadol 50 q.6 hours p.r.n., Imdur 60 mg daily. She will be on insulin sliding scale with Humulin R, sliding scale schedule is given. Levofloxacin 250 q.2 days #5 tablets given for 10 days. DISCHARGE INSTRUCTIONS: The patient will continue with hemodialysis and come for followup in 2 weeks .
== END 2017-07-09 19:29 | disposition home or self-care (01) | DRG 638 ==
LOC: ERS 11:51 → T4-A 15:25
PROVIDERS: ADMIT Internal Medicine; ATTEND Internal Medicine
PROC: 5A1D70Z Performance of Urinary Filtration, Intermittent, Less than 6 Hours Per Day (ICD-10-PCS; principal; 2017-07-08)
DX: E11.649 Type 2 diabetes mellitus with hypoglycemia without coma (principal); I13.2 Hypertensive heart and chronic kidney disease with heart failure and with stage 5 chronic kidney disease, or end stage renal disease; N18.6 End stage renal disease; E11.22 Type 2 diabetes mellitus with diabetic chronic kidney disease; N39.0 Urinary tract infection, site not specified; D63.1 Anemia in chronic kidney disease; Z99.2 Dependence on renal dialysis; Z79.4 Long term (current) use of insulin; E78.5 Hyperlipidemia, unspecified; I25.10 Atherosclerotic heart disease of native coronary artery without angina pectoris; I50.9 Heart failure, unspecified; Z95.5 Presence of coronary angioplasty implant and graft; Z79.82 Long term (current) use of aspirin
CPT/HCPCS: 36415; 36416; 51701; 74176; 80048; 81003; 81015; 85025; 87086; 87340; 90935; 96365; 96375; A4353; G0257; J0360; J0696; J7050

== ENCOUNTER 2018-01-11 03:56 | Inpatient (IN) | payer MEDICARE ==
[2018-01-11 04:27] LABS: Hemoglobin 12.4 g/dL (12.0-16.0); Mean Corpuscular HGB CONC 33.1 g/dL (32.0-36.0); Mean Corpuscular Hemoglobin 33.2 pg (27.0-31.0); Mean Platelet Volume 7.1 fL (7.4-10.4); Platelet Count 309 thou/uL (130-400); RBC Distribution Width 12.2 % (11.5-14.5); Red Blood Cell (RBC) Count 3.74 mill/uL (4.20-5.40); White Blood Cell (WBC) Count 20.3 thou/uL (4.8-10.8)
[2018-01-11 04:39] LABS: ALT (SGPT) 8 U/L (8-55); AST (SGOT) 13 U/L (5-34); Alkaline Phosphatase 61 U/L (40-150); Anion Gap 15 mmol/L (10-20); BUN (Urea Nitrogen) 37 mg/dL (9.8-20.1); Bilirubin, Total 0.4 mg/dL (0.2-1.2); CK (CPK) 113 U/L (29-168); CKMB 2.7 ng/mL (0-6.6); Calc. Creatinine Clearance 0 mL/min (70-130); Calcium 9.5 mg/dL (7.8-10.44); Carbon Dioxide 29 mmol/L (23-31); Chloride 99 mmol/L (98-107); Estimated GFR-MDRD 7; Glucose 180 mg/dL (83-110); Sodium 139 mmol/L (136-145); Troponin I 0.083 ng/mL (< 0.028)
[2018-01-11 04:44] LABS: Lymphocytes 12 % (21-51); MDiff Complete? YES; Macrocytosis SLIGHT = 6-15 cells (100X) (0-5/hpf); Monocytes 7 % (0-10); Neutrophil 81 % (42-75); PLT Morphology Comment Appears Adequate
[2018-01-11] MEDS ORDERED: cefTRIAXone\\ROCEPHIN 1 GM VIAL ONE (05:03)
[2018-01-11] MEDS ORDERED: Nitroglycerin 50 MG/250 ML BOT 250 ML IVPB SCH (06:15)
[2018-01-11 06:48] LABS: HBSAg Index 0.24 S/CO (0-0.99); Hep B Surf Ag Non-Reactive S/CO (NonReactive)
[2018-01-11 07:57] VITALS: BMI 27.3
--- NOTE | 2018-01-11 08:07 | RAD ---
PORTABLE UPRIGHT FRONTAL CHEST RADIOGRAPH: DATE: 01/11/2018. COMPARISON: 06/27/2017. HISTORY: Hypertension, dyspnea, and hypoxemia. FINDINGS: There is hazy new increased density in the perihilar regions in both lung bases, left greater than ri ght. There is pulmonary vascular congestion. Midline sternotomy wires are noted. There is no pneum othorax appreciated. IMPRESSION: New hazy increased density in the perihilar regions in both lung bases suggests pulmonary edema. Inf ectious pneumonitis cannot be excluded. Followup imaging following treatment to document resolution advised. POS: [facility]
[2018-01-11] MEDS ORDERED: Polyethylene Glycol 3350 17 GM Packet PO PRN (09:19)
[2018-01-11] MEDS ORDERED: Sevelamer Carbonate 800 MG TAB PO PRN (09:20)
--- NOTE | 2018-01-11 10:03 | HP ---
REASON FOR ADMISSION/CHIEF COMPLAINT: Shortness of breath. HISTORY OF PRESENT ILLNESS: Ms. Gallegos is a 69-year-old female with past medical history of end-stage renal disease, hypertension, diabetes mellitus, came because of shortness of breath that started around midnight. The patient claims she has been taking all her medications and did miss dialysis, but just developed sudden onset of dyspnea. She did not have any chest pain, nausea or vomiting. No headache, no dizziness. The patient called for EMS. EMS found the patient with respiratory distress with hypoxia with O2 saturation 88%, and blood pressure of 250/110 and pulse of 115. In the ER, the patient was still in respiratory distress. She was put on BiPAP and also started on nitro infusion for control of the hypertensive emergency. She was also found to have leukocytosis. She is being admitted to CCU for close monitoring. She is on a nitroglycerin infusion as well as BiPAP. So the patient was obviously in pulmonary edema causing respiratory failure. PAST MEDICAL HISTORY: 1. End-stage renal disease, on hemodialysis. 2. Insulin-dependent diabetes mellitus. 3. Hypertension. 4. Hyperlipidemia. 5. Chronic back pain due to lumbar spinal stenosis. PAST SURGICAL HISTORY: 1. Status post appendectomy. 2. Status post coronary artery bypass graft. 3. Status post stent placement. 4. Status post lumbar spinal surgery. CURRENT MEDICATIONS: Patient is on aspirin 325 mg daily, Renvela 800 mg 3 times daily, lisinopril 20 mg b.i.d., Plavix 75 mg daily, Coreg 25 b.i.d., hydralazine 50 mg b.i.d., diltiazem 60 mg t.i.d., Imdur 30 mg daily, tramadol p.r.n., lovastatin 40 mg daily, Zantac. ALLERGIES: No known drug allergies. FAMILY HISTORY: Nothing contributory. SOCIAL HISTORY: The patient lives alone. No history of smoking. No history of alcohol intake. REVIEW OF SYSTEMS: CARDIOVASCULAR: No chest pain or shortness of breath. RESPIRATORY: No fever or cough. GASTROINTESTINAL: No nausea or vomiting, abdominal pain. GENITOURINARY: No dysuria. CENTRAL NERVOUS SYSTEM: No focal deficits. PHYSICAL EXAMINATION: GENERAL: The patient is alert, awake, oriented x3. VITAL SIGNS: Temperature 98, pulse 74, respirations 20, blood pressure initially 215/110, now 150/80. HEENT: Normocephalic, atraumatic. Pupils equal and reactive to light. Nasopharynx is pale and dry. Hard and soft palate, no lesions. SKIN: Skin turgor decreased. NECK: Supple. No JVD. LUNGS: Breath sounds diminished with crackles present in bases. No wheezing. CARDIAC: S1, S2 regular. ABDOMEN: Soft, no distension noted. Bowel sounds present. RECTAL: Deferred. CENTRAL NERVOUS SYSTEM: No focal deficits. LABORATORY AND X-RAY FINDINGS: CBC shows WBC 20,000, hemoglobin 12, hematocrit 37, platelets 309. Metabolic panel; sodium 139, potassium 4, chloride 109, CO2 of 20, BUN 37, creatinine 7.3, glucose 180, CK-MB 2.7, troponin I 0.083. BNP was 2846. Chest x-ray shows pulmonary edema. EKG shows normal sinus rhythm, no acute ST- T wave changes seen. ASSESSMENT: 1. Acute respiratory failure secondary to fluid overload , pulmonary edema. 2. Hypertensive emergency. 3. End-stage renal disease on hemodialysis. 4. Chronic back pain. 5. Hyperlipidemia. PLAN: 1. CCU monitoring. 2. Diet: ADA and renal. 3. Allergies: NKDA 4. Continue home medications. 5. Nitroglycerin infusion. 6. Oxygen via nasal cannula 2 liters 7. Accu-Chek a.c. and at bedtime. 8. Sliding scale mild with regular insulin. 9. Hemodialysis 10. [facility]phrology consult. [facility]
[2018-01-11] MEDS: Aspirin 325 MG TAB PO SCH (10:43)
[2018-01-11] MEDS: Clopidogrel Bisulfate 75 MG TAB PO SCH (10:44)
[2018-01-11] MEDS: Carvedilol 25 MG TAB PO SCH ×2 (10:44→20:51)
[2018-01-11] MEDS: hydrALAZINE 25 MG TAB PO SCH ×2 (10:45→21:06)
[2018-01-11] MEDS: Acetaminophen 325 MG TAB PO PRN (10:46)
[2018-01-11] MEDS: Sevelamer Carbonate 800 MG TAB PO SCH ×2 (10:46→16:52)
[2018-01-11] MEDS: traMADol HCl 50 MG TAB PO PRN (10:50)
[2018-01-11] MEDS ORDERED: Insulin Regular 300 UNITS/3 ML VIAL SC PRN (13:49)
[2018-01-11] MEDS ORDERED: Dextrose 5% in Water 1,000 ML IV PRN (13:49)
[2018-01-11] MEDS ORDERED: Dextrose 50% Abboject 50 ML SYRINGE IVP PRN (13:49)
[2018-01-11] MEDS: Insulin Regular 300 UNITS/3 ML VIAL SC PRN (16:47)
--- NOTE | 2018-01-11 20:07 | CON ---
DATE OF CONSULTATION: 01/11/2018 HISTORY OF PRESENT ILLNESS: Ms. Gallegos is a 72-year-old female with end-stage renal disease. She p resented with hypoxemia, some respiratory distress. She was placed on BiPAP and admitted to the [facility] (formerly [facility] Care Unit. She was placed on oxygen after arriving in the Critical Care Unit and remained comfortable. She has been dialyzed and says she feels much better. Her only complaint at the time of this dictati on is that she is hurting all over. PAST MEDICAL HISTORY: Remarkable for, 1. Diabetes, on insulin in the past. 2. History of hypertension. 3. History of lipid disorder. 4. History of spinal stenosis. 5. History of an appendectomy. 6. History of coronary artery bypass grafting. 7. History of coronary stenting. 8. History of lumbar spine surgery. SOCIAL HISTORY: He is nonsmoker, nondrinker, nondrug user. ALLERGIES: She has no drug allergies. FAMILY HISTORY: Negative for lung disease in early age. REVIEW OF SYSTEMS: Ten points otherwise negative. PHYSICAL EXAMINATION: VITAL SIGNS: She is afebrile on arrival this morning. Heart rate was in the 70s. She was hypertens anastasia on arrival, 223/123. Followup blood pressure 5 minutes later was 219/90. Blood pressure 40 lul gonzález later was 149/101. Heart rates in the 70s-80s this afternoon. Her blood pressures have been con trolled intermittently. Most recent blood pressures have been in the 130s to 140s systolic, respirat ory rates in the teens. GENERAL: I am told she never appeared in distress when she arrived and was placed on a cannula. She is certainly in no distress now. She is lying flat in bed. HEENT: Sclerae are anicteric. Extraocular movements are full. NECK: Supple. LUNGS: Clear. HEART: Regular rhythm. No S3. ABDOMEN: Soft and nontender. EXTREMITIES: Without clubbing, cyanosis, or edema. LABORATORY AND X-RAY FINDINGS: Chest radiograph was reviewed. She had mild pulmonary edema on prese ntation. White count 20, hemoglobin 12.4, platelets 309. Electrolytes were unremarkable. BUN 37, c reatinine 7.3. IMPRESSION: 1. Hypertensive pulmonary edema. 2. End-stage renal disease. She is clinically stable on a nasal cannula. There is no indication for noninvasive ventilation or B iPAP at this time, and by the time she arrived in the ICU, there was not as well per my discussion wi th the nursing staff and the respiratory therapists. We will continue with supportive care. The main issue probably will be making sure that her blood pr essure stays well controlled. This is a 70-minute consult, 50% of the time was spent in the unit coordinating care.
[2018-01-11] MEDS: Lisinopril 20 MG TAB PO SCH (21:04)
[2018-01-11] MEDS: Lovastatin 20 MG TAB PO SCH (21:08)
[2018-01-12] MEDS ORDERED: Vancomycin HCl 1 GM in Premix Bag 1 BAG IVPB SCH (00:30)
[2018-01-12] MEDS: traMADol HCl 50 MG TAB PO PRN ×3 (00:40→16:35)
[2018-01-12] MEDS: Acetaminophen 325 MG TAB PO PRN ×2 (00:40→16:34)
[2018-01-12] MEDS: Nitroglycerin 50 MG/250 ML BOT 250 ML IVPB PRN ×3 (03:29→21:13)
[2018-01-12 04:11] LABS: #Lymphocytes 0.7 thou/uL (1.20-3.40); #Monocytes 0.6 thou/uL (0.11-0.59); %Basophils 0.1 % (0.0-1.0); %Eosinophils 0.3 % (0.0-10.0); %Lymphocytes 5.2 % (21.0-51.0); %Monocytes 4.7 % (0.0-10.0); %Neutrophils 89.7 % (42.0-75.0); Hemoglobin 11.1 g/dL (12.0-16.0); Mean Corpuscular HGB CONC 32.3 g/dL (32.0-36.0); Mean Corpuscular Volume 99.1 fL (78.0-98.0); Mean Platelet Volume 7.3 fL (7.4-10.4); Platelet Count 296 thou/uL (130-400); RBC Distribution Width 11.9 % (11.5-14.5); Red Blood Cell (RBC) Count 3.47 mill/uL (4.20-5.40); White Blood Cell (WBC) Count 13.4 thou/uL (4.8-10.8)
[2018-01-12 04:34] LABS: Anion Gap 18 mmol/L (10-20); BUN (Urea Nitrogen) 38 mg/dL (9.8-20.1); Calc. Creatinine Clearance 9 mL/min (70-130); Calcium 9.2 mg/dL (7.8-10.44); Carbon Dioxide 26 mmol/L (23-31); Chloride 96 mmol/L (98-107); Estimated GFR-MDRD 9; Glucose 216 mg/dL (83-110); Potassium 4.3 mmol/L (3.5-5.1); Sodium 136 mmol/L (136-145)
[2018-01-12] MEDS: Insulin Regular 300 UNITS/3 ML VIAL SC PRN ×3 (06:19→17:16)
[2018-01-12] MEDS: Sevelamer Carbonate 800 MG TAB PO SCH ×3 (07:47→16:36)
[2018-01-12] MEDS: Lisinopril 20 MG TAB PO SCH ×2 (09:21→21:13)
[2018-01-12] MEDS: Clopidogrel Bisulfate 75 MG TAB PO SCH (09:22)
[2018-01-12] MEDS: hydrALAZINE 25 MG TAB PO SCH ×2 (09:22→21:13)
[2018-01-12] MEDS: Carvedilol 25 MG TAB PO SCH ×2 (09:22→21:14)
[2018-01-12] MEDS: Aspirin 325 MG TAB PO SCH (09:22)
[2018-01-12] MEDS ORDERED: cloNIDine 0.2 MG TAB PO SCH (11:00)
[2018-01-12] MEDS ORDERED: Ondansetron PF 4 MG/2 ML Vial IVP PRN (12:19)
[2018-01-12] MEDS ORDERED: cloNIDine 0.2 MG TAB PO PRN (12:31)
[2018-01-12] MEDS: Famotidine 20 MG TAB PO SCH (14:17)
--- NOTE | 2018-01-12 17:00 | PRG ---
DATE OF SERVICE: 01/12/2018 SUBJECTIVE: El is in no distress this morning. She is still on nitroglycerin drip. She was gi ken Catapres 0.2 mg this morning with improvement of her blood pressure within an hour. She is weani ng off the nitroglycerin. OBJECTIVE: LUNGS: Clear. HEART: Regular rhythm. ABDOMEN: Soft. EXTREMITIES: Without edema. LABORATORY DATA: White count 13.4, hemoglobin 11.1, platelets 296,000. Sodium 136, potassium 4.3, chloride 96, bicarbonate 26, BUN 38, creatinine 5.87. IMPRESSION: 1. Poorly controlled hypertension. 2. Diabetes. 3. End-stage renal disease. 4. Lipid disorder. 5. Spinal stenosis. 6. History of coronary artery disease with bypass grafting in the past. PLAN: Transfer out of the critical care unit once her blood pressure documented, not to need intrave nous drip intervention.
[2018-01-12] MEDS: Lovastatin 20 MG TAB PO SCH (21:14)
[2018-01-13] MEDS: Insulin Regular 300 UNITS/3 ML VIAL SC PRN ×3 (06:29→17:33)
[2018-01-13] MEDS: Sevelamer Carbonate 800 MG TAB PO SCH ×3 (08:08→17:32)
[2018-01-13] MEDS: traMADol HCl 50 MG TAB PO PRN (08:08)
[2018-01-13] MEDS: Aspirin 325 MG TAB PO SCH (09:12)
[2018-01-13] MEDS: Clopidogrel Bisulfate 75 MG TAB PO SCH (09:13)
[2018-01-13] MEDS: Lisinopril 20 MG TAB PO SCH ×2 (09:13→20:17)
[2018-01-13] MEDS: Carvedilol 25 MG TAB PO SCH ×2 (09:13→20:17)
[2018-01-13] MEDS: hydrALAZINE 25 MG TAB PO SCH ×2 (09:13→20:20)
[2018-01-13] MEDS: Famotidine 20 MG TAB PO SCH (12:43)
--- NOTE | 2018-01-13 12:59 | PRG ---
DATE OF SERVICE: 01/13/2018 SUBJECTIVE: Patient was seen and examined at bedside and overnight events noted. Patient denies any shortness of breath or chest pain or palpitation. No history of nausea or vomiting or diarrhea or f ever or chills or cramps. OBJECTIVE: GENERAL: This is a well-built female, in no apparent distress. VITAL SIGNS: Temperature 97.8, pulse 65, respiratory rate 18, blood pressure 107/58. HEENT: Atraumatic, normocephalic. Oral mucosa is moist. NECK: Supple. CARDIOVASCULAR: S1, S2 heard. Rate and rhythm regular. RESPIRATORY: Clear to auscultation. GASTROINTESTINAL: Abdomen is soft. MUSCULOSKELETAL: No tenderness. No edema. DERMATOLOGIC: No skin rash. NEUROLOGIC: Alert and awake and oriented x3. No focal neurologic deficits. Moving all the extremit ies. PSYCHIATRIC: Mood and affect normal. LABORATORY DATA: Not done today. ASSESSMENT AND PLAN: 1. End-stage renal disease. Continue on dialysis as tolerated. We will continue dialysis Sunday, and Sunday. 2. Edema. 3. Fluid overload. 4. Hypertension, stable. 5. Anemia. Monitor hemoglobin. Plan is to continue on dialysis Sunday, Sunday and Sunday.
--- NOTE | 2018-01-13 16:06 | PRG ---
DATE OF SERVICE: 01/13/2018 SUBJECTIVE: Elza Gallegos is off of her nitroglycerin. PHYSICAL EXAMINATION: VITAL SIGNS: Heart rate is in the 60s. She is afebrile. She is now on room air oximetry 94%, blood pressure 107/52. LUNGS: Clear. HEART: Regular rhythm. ABDOMEN: Soft. LABORATORY DATA: White count yesterday was 13.4. There is no CBC today. There are no electrolytes today. IMPRESSION: 1. End-stage renal disease. 2. Hypertension, poorly controlled. She denies missing any of her medications. 3. Diabetes. 4. History of a lipid disorder. 5. History of coronary artery bypass grafting. PLAN: Continue supportive care. Continue other routine dialysis and blood pressure control. She is stable to move out of the Critical Care Unit. We will sign off.
[2018-01-13] MEDS: Lovastatin 20 MG TAB PO SCH (20:20)
--- NOTE | 2018-01-14 08:59 | CON ---
DATE OF CONSULTATION: 01/11/2018 NEPHROLOGY CONSULTATION NOTE CONSULTING PHYSICIAN: Chicho Sevilla M.D. REASON FOR CONSULTATION: End-stage renal disease evaluation and care and fluid overload. REASON FOR ADMISSION: Shortness of breath. HISTORY OF PRESENT ILLNESS: A 72-year-old female with history of end-stage renal disease, type 2 amos betes, hypertension, hyperlipidemia, who came to the hospital with shortness of breath and also comes to evaluate this morning for emergent dialysis and patient was getting dialysis. No fever, no chill s, no nausea, vomiting, no chest pain. PAST MEDICAL HISTORY: 1. End-stage renal disease. 2. Type 2 diabetes mellitus. 3. Hypertension. 4. Hyperlipidemia. 5. Chronic back pain. PAST SURGICAL HISTORY: Appendectomy, CABG, coronary stent, lumbar spinal surgery. HOME MEDICATIONS: Aspirin, Renvela, lisinopril, Plavix, Coreg, hydralazine, diltiazem, Imdur, tramad ol, lovastatin. ALLERGIES: No known drug allergies. SOCIAL HISTORY: No smoking, alcohol or drugs. FAMILY HISTORY: Nothing significant. REVIEW OF SYSTEMS: The following complete review of systems was negative, unless otherwise mentioned in the HPI or below: Constitutional: Weight loss or gain, ability to conduct usual activities. Skin: Rash, itching. Eyes: Double vision, pain. ENT/Mouth: Nose bleeding, neck stiffness, pain, tenderness. Cardiovascular: Palpitations, dyspnea on exertion, orthopnea. Respiratory: Shortness of breath, wheezing, cough, hemoptysis, fever or night sweats. Gastrointestinal: Poor appetite, abdominal pain, heartburn, nausea, vomiting, constipation, or diarr hea. Genitourinary: Urgency, frequency, dysuria, nocturia. Musculoskeletal: Pain, swelling. Neurologic/Psychiatric: Anxiety, depression. Allergy/Immunologic: Skin rash, bleeding tendency. PHYSICAL EXAMINATION: GENERAL: This is a well-built female in no apparent distress. VITAL SIGNS: Temperature 97.9, pulse 60, respiratory rate 18, blood pressure 165/76. HEENT: Atraumatic, normocephalic. Oral mucosa is moist. NECK: Supple, no masses. CARDIOVASCULAR: S1, S2 heard. RESPIRATORY: Clear. MUSCULOSKELETAL: 1+ edema. DERMATOLOGIC: No rash. NEUROLOGIC: Alert, awake. PSYCHIATRIC: Mood and affect. LABORATORY: Hemoglobin is 12.4, potassium is 4.0, BUN 37, creatinine 7.3. ASSESSMENT AND PLAN: 1. End-stage renal disease. We will have emergent dialysis. 2. Fluid overload. Remove fluid with dialysis as tolerated. 3. Edema. 4. Hypertension. 5. Anemia, stable. Plan is to continue on dialysis. We will monitor. If needed, we will have dialysis tomorrow too, ul trafiltration, advised to limit salt and fluid intake. Follow up with Cardiology. Thank you for the consult.
--- NOTE | 2018-01-14 10:08 | PRG ---
DATE OF SERVICE: 01/12/2018 SUBJECTIVE: Patient was seen and examined at bedside and overnight events noted. Patient denies any shortness of breath or chest pain or palpitation. No history of nausea or vomiting or diarrhea or f ever or chills or cramps. OBJECTIVE: GENERAL: This is a well-built female in no apparent distress. VITAL SIGNS: Temperature 97.6, pulse 59, respiratory 18, blood pressure 118/84. HEENT: Atraumatic, normocephalic. Oral mucosa is moist. NECK: Supple. CARDIOVASCULAR: S1, S2 heard. Rate and rhythm regular. RESPIRATORY: Clear to auscultation. GASTROINTESTINAL: Abdomen is soft. MUSCULOSKELETAL: No tenderness, no edema. DERMATOLOGIC: No skin rash. NEUROLOGIC: Alert and awake and oriented x3. No focal neurologic deficits. Moving all the extremit ies. PSYCHIATRIC: Mood and affect normal. LABORATORY DATA: Potassium 4.3, BUN is 38, creatinine is 5.8. ASSESSMENT AND PLAN: 1. End-stage renal disease. We will continue dialysis Sunday, Sunday, and Sunday. 2. Fluid overload with shortness of breath and hypoxia, better. 3. Edema, controlled. 4. Hypertension, stable. 5. We will continue dialysis Sunday, Sunday, and Sunday. Advised to limit salt and fluid intake.
[2018-01-14] MEDS: Sevelamer Carbonate 800 MG TAB PO SCH ×3 (11:44→17:25)
[2018-01-14] MEDS: hydrALAZINE 25 MG TAB PO SCH ×2 (11:45→20:48)
[2018-01-14] MEDS: Aspirin 325 MG TAB PO SCH (11:45)
[2018-01-14] MEDS: Clopidogrel Bisulfate 75 MG TAB PO SCH (11:46)
[2018-01-14] MEDS: Carvedilol 25 MG TAB PO SCH ×2 (11:46→20:49)
[2018-01-14] MEDS: Lisinopril 20 MG TAB PO SCH ×2 (11:46→20:48)
--- NOTE | 2018-01-14 11:59 | PRG ---
DATE OF SERVICE: 01/14/2018 SUBJECTIVE: A 72-year-old female being seen for end-stage renal disease. The patient denies any [place] sea, vomiting or chest pain. PHYSICAL EXAMINATION: GENERAL: Patient is awake, alert. VITAL SIGNS: Pulse 74, breathing 16, blood pressure 131/55. OBJECTIVE: See above. Awake, alert, in no acute distress. GENERAL APPEARANCE AND MENTAL STATUS: Fair. HEAD/NECK: Normocephalic. Atraumatic. EYES: EOMI. No deformity. EARS: Clear. No ulcers. NOSE: Intact. No lesions. MOUTH: Clear. No discharge. THROAT: Clear. No exudate. LUNGS: Clear. No crackles. CARDIAC: S1, S2. No rub. ABDOMEN: Benign. BS+. GENITALIA/RECTUM: Dennis absent. BACK/EXTREMITIES: Edema 0+ Ulcer- NEUROLOGICAL: Alert and motor intact. SKIN: Rash- Bruise- LYMPHATICS: Edema- Ulcer- LABORATORY DATA: Show hemoglobin 11. ASSESSMENT AND RECOMMENDATIONS: 1. Stage 6 chronic kidney disease. Continue hemodialysis. 2. Hypertension, stable. 3. Anemia, stable. 4. Medications based on glomerular filtration rate are appropriate.
[2018-01-14] MEDS: Insulin Regular 300 UNITS/3 ML VIAL SC PRN (17:25)
[2018-01-14] MEDS: Lovastatin 20 MG TAB PO SCH (20:49)
[2018-01-14] MEDS ORDERED: Famotidine 20 MG TAB PO SCH (21:00)
[2018-01-15] MEDS: Sevelamer Carbonate 800 MG TAB PO SCH ×2 (08:09→12:25)
[2018-01-15] MEDS: Aspirin 325 MG TAB PO SCH (08:09)
[2018-01-15] MEDS: hydrALAZINE 25 MG TAB PO SCH (08:10)
[2018-01-15] MEDS: Carvedilol 25 MG TAB PO SCH (08:11)
[2018-01-15] MEDS: Lisinopril 20 MG TAB PO SCH (08:11)
[2018-01-15] MEDS: Clopidogrel Bisulfate 75 MG TAB PO SCH (08:11)
[2018-01-15] MEDS: Insulin Regular 300 UNITS/3 ML VIAL SC PRN (12:26)
[2018-01-15] MEDS ORDERED: cloNIDine 0.1 MG TAB PO ONE (12:30)
--- NOTE | 2018-01-15 12:33 | PRG ---
DATE OF SERVICE: 01/15/2018 SUBJECTIVE: This is a 72-year-old female being seen for end-stage renal disease. The patient denied any nausea, vomiting or chest pain. OBJECTIVE: GENERAL: The patient is awake and alert, in no acute distress. VITAL SIGNS: Afebrile, pulse , breathing 16, blood pressure 134/55. GENERAL APPEARANCE AND MENTAL STATUS: Fair. HEAD/NECK: Normocephalic. Atraumatic. EYES: EOMI. No deformity. EARS: Clear. No ulcers. NOSE: Intact. No lesions. MOUTH: Clear. No discharge. THROAT: Clear. No exudate. LUNGS: Clear. No crackles. CARDIAC: S1, S2. No rub. ABDOMEN: Benign. BS+. GENITALIA/RECTUM: Dennis absent. BACK/EXTREMITIES: Edema 0+. Ulcer-. NEUROLOGICAL: Alert and motor intact. SKIN: Rash-. Bruise-. LYMPHATICS: Edema-. Ulcer-. LABORATORY DATA: . ASSESSMENT AND RECOMMENDATIONS: 1. Stage 6 chronic kidney disease, currently on hemodialysis Sunday, Sunday and Sunday. 2. Hypertension, stable. 3. Anemia, stable. 4. Medication based on glomerular filtration rate are appropriate.
[2018-01-15 13:03] VITALS: TEMP 97.3
[2018-01-15 13:37] VITALS: BP 154/85
[2018-01-15] MEDS ORDERED: cloNIDine 0.1 MG TAB PO SCH (21:00)
== END 2018-01-15 13:44 | disposition home or self-care (01) | DRG 189 ==
LOC: ERS 03:56 → CCU 06:09 → T4-B 01-13 11:36
PROVIDERS: ADMIT Internal Medicine; ATTEND Internal Medicine
PROC: 5A09357 Assistance with Respiratory Ventilation, Less than 24 Consecutive Hours, Continuous Positive Airway Pressure (ICD-10-PCS; principal; 2018-01-11)
DX: J96.01 Acute respiratory failure with hypoxia (principal); N18.6 End stage renal disease; I16.1 Hypertensive emergency; I12.0 Hypertensive chronic kidney disease with stage 5 chronic kidney disease or end stage renal disease; Z99.2 Dependence on renal dialysis; E11.22 Type 2 diabetes mellitus with diabetic chronic kidney disease; Z79.4 Long term (current) use of insulin; E78.5 Hyperlipidemia, unspecified; M48.061 Spinal stenosis, lumbar region without neurogenic claudication; Z95.1 Presence of aortocoronary bypass graft; Z95.5 Presence of coronary angioplasty implant and graft; Z79.82 Long term (current) use of aspirin; Z79.899 Other long term (current) drug therapy; I10 Essential (primary) hypertension; D64.9 Anemia, unspecified; D72.829 Elevated white blood cell count, unspecified
CPT/HCPCS: 36415; 36416; 71045; 80048; 80053; 82550; 82553; 83880; 84484; 85025; 87040; 87340; 90935; 93005; 94660; 96365; 96366; G0257; J0696; J1815; J2405

== ENCOUNTER 2018-02-04 04:16 | Observation (INO) | payer MEDICARE ==
[2018-02-04 05:21] LABS: Actual Bicarbonate (HCO3a) 22.8 mEq/L (22-28); Analyzer IN Cardio ER; Base Excess (BEa) -3.2 mEq/L (-2.0 to +3.0); CO2 Tension 44.9 mmHg (35.0-45.0); Calcium, Ionized 1.07 mmol/L (1.12-1.30); Carboxyhemoglobin (COHb) 0.9 gm% (0.0-3.0); Hemoglobin (Hb) 11.8 g/dL (12.0-16.0); O2 Tension (PaO2) 60.3 mmHg (> 70.0); Potassium - ABG Lab 4.31 mmol/L (3.70-5.30); pH, Arterial 7.32 (7.35-7.45)
[2018-02-04 05:26] LABS: ALV-art Gradient 97.475 (0-20); Puncture Site LRA
[2018-02-04 05:27] LABS: #Eosinphils 0.2 thou/uL (0.0-0.7); #Lymphocytes 0.9 thou/uL (1.20-3.40); #Neutrophils 10.1 thou/uL (1.40-6.50); %Basophils 0.2 % (0.0-1.0); %Eosinophils 1.4 % (0.0-10.0); %Lymphocytes 7.6 % (21.0-51.0); %Monocytes 7.9 % (0.0-10.0); %Neutrophils 82.9 % (42.0-75.0); Hemoglobin 11.7 g/dL (12.0-16.0); Mean Corpuscular HGB CONC 32.6 g/dL (32.0-36.0); Mean Corpuscular Hemoglobin 32.8 pg (27.0-31.0); Mean Platelet Volume 7.6 fL (7.4-10.4); Platelet Count 220 thou/uL (130-400); RBC Distribution Width 12.9 % (11.5-14.5); Red Blood Cell (RBC) Count 3.58 mill/uL (4.20-5.40); White Blood Cell (WBC) Count 12.2 thou/uL (4.8-10.8)
[2018-02-04 05:54] LABS: ALT (SGPT) 7 U/L (8-55); AST (SGOT) 12 U/L (5-34); Albumin 4.1 g/dL (3.4-4.8); Alkaline Phosphatase 71 U/L (40-150); Anion Gap 24 mmol/L (10-20); BUN (Urea Nitrogen) 71 mg/dL (9.8-20.1); Bilirubin, Total 0.5 mg/dL (0.2-1.2); CK (CPK) 131 U/L (29-168); Calc. Creatinine Clearance 0 mL/min (70-130); Calcium 9.3 mg/dL (7.8-10.44); Carbon Dioxide 20 mmol/L (23-31); Chloride 98 mmol/L (98-107); Estimated GFR-MDRD 5; Globulin 2.9 g/dL (2.4-3.5); Glucose 144 mg/dL (83-110); Potassium 4.5 mmol/L (3.5-5.1); Sodium 137 mmol/L (136-145)
[2018-02-04 05:59] LABS: CKMB 3.7 ng/mL (0-6.6); Troponin I 0.099 ng/mL (< 0.028)
[2018-02-04] MEDS ORDERED: Labetalol HCl 100 MG/20 ML VIAL ONE (06:38)
--- NOTE | 2018-02-04 08:29 | RAD ---
SINGLE VIEW OF THE CHEST: Comparison: 01-11-18 History: Shortness of breath, dyspnea. FINDINGS: Single view of the chest shows an enlarged cardiomediastinal silhouette. The patient is status post s ternotomy. Increased interstitial markings are present. There is no evidence of consolidation, mass, or pleural effusion. IMPRESSION: Diffuse decreased interstitial markings may be secondary to interstitial edema or an atypical infiltr ate. POS: [facility]
[2018-02-04] MEDS ORDERED: traMADol HCl 50 MG TAB ONE (11:36)
[2018-02-04] MEDS ORDERED: Lisinopril 10 MG TAB ONE (11:36)
[2018-02-04] MEDS ORDERED: hydrALAZINE 25 MG TAB ONE (11:36)
[2018-02-04] MEDS ORDERED: cloNIDine 0.1 MG TAB ONE (11:36)
--- NOTE | 2018-02-04 11:53 | CON ---
DATE OF CONSULTATION: 02/04/2018 CONSULTING PHYSICIAN: Dr. Sevilla REASON FOR CONSULTATION: End-stage renal disease evaluation and care. REASON FOR ADMISSION: Shortness of breath. HISTORY OF PRESENT ILLNESS: This is a 72-year-old female with history of end-stage renal disease, hypertension, diabetes, who came to the hospital with shortness of breath. The patien t missed dialysis Sunday and this morning has shortness of breath, fluid overload. Blood pressure wa s also elevated. Nephrology consulted for emergent dialysis. Patient was seen during dialysis and i s feeling better. Currently on nasal oxygen. No fever or chills, no rash. No palpitation. No chest pain, no nausea, vomiting, diarrhea reported. PAST MEDICAL HISTORY: Positive for end-stage renal disease, diabetes, hypertension, hyperlipidemia, chronic back pain, spinal stenosis. PAST SURGICAL HISTORY: Appendectomy, CABG, coronary stent placement, lumbar spinal surgery. HOME MEDICATIONS: Current list include tramadol, hydralazine, Renvela, MiraLax, lovastatin, lisinopr il, isosorbide mononitrate, Cardizem, Plavix, carvedilol, aspirin. ALLERGIES: No known drug allergies. SOCIAL HISTORY: No smoking, alcohol or illicit drug abuse. FAMILY HISTORY: No history of end-stage renal disease. REVIEW OF SYSTEMS: The following complete review of systems was negative, unless otherwise mentioned in the HPI or below: Constitutional: Weight loss or gain, ability to conduct usual activities. Skin: Rash, itching. Eyes: Double vision, pain. ENT/Mouth: Nose bleeding, neck stiffness, pain, tenderness. Cardiovascular: Palpitations, dyspnea on exertion, orthopnea. Respiratory: Shortness of breath, wheezing, cough, hemoptysis, fever or night sweats. Gastrointestinal: Poor appetite, abdominal pain, heartburn, nausea, vomiting, constipation, or diarrhea. Genitourinary: Urgency, frequency, dysuria, nocturia. Musculoskeletal: Pain, swelling. Neurologic/Psychiatric: Anxiety, depression. Allergy/Immunologic: Skin rash, bleeding tendency. PHYSICAL EXAMINATION: GENERAL: This is a well-built female in no apparent distress. VITAL SIGNS: Temperature 96, pulse 70, respirations 18, blood pressure 178/81. HEENT: Atraumatic, normocephalic. Oral mucosa is moist. NECK: Supple. CARDIOVASCULAR: S1, S2 heard. Rate and rhythm regular. RESPIRATORY: Clear. GASTROINTESTINAL: Abdomen is soft. MUSCULOSKELETAL: 1+ edema. DERMATOLOGIC: No rash. NEUROLOGIC: Alert, awake. PSYCHIATRIC: Mood and affect. LABORATORY: Hemoglobin 11.7, potassium 4.5, BUN 71, creatinine is 9.8. ASSESSMENT AND PLAN: 1. End-stage renal disease. The patient had emergent dialysis. Seen during dialysis, tolerating we ll. 2. Fluid overload with shortness of breath. Remove fluid with dialysis. 3. Hypertension, remove fluid and monitor. Continue on medications. 4. Anemia, mild. 5. Edema. The patient was advised to limit fluid intake. We will continue dialysis as tolerated.
[2018-02-04] MEDS ORDERED: Carvedilol 25 MG TAB PO SCH (12:00)
[2018-02-04] MEDS ORDERED: Ondansetron ODT 4 MG TAB SL PRN (16:16)
[2018-02-04] MEDS ORDERED: Ondansetron PF 4 MG/2 ML Vial IVP PRN (16:16)
[2018-02-04 16:22] VITALS: BMI 25.6
[2018-02-04] MEDS ORDERED: Insulin Regular 300 UNITS/3 ML VIAL SC PRN (18:22)
[2018-02-04] MEDS ORDERED: Dextrose 5% in Water 1,000 ML IV PRN (18:22)
[2018-02-04] MEDS ORDERED: Dextrose 50% Abboject 50 ML SYRINGE IVP PRN (18:22)
[2018-02-04] MEDS ORDERED: Famotidine 20 MG TAB PO PRN (18:24)
[2018-02-04] MEDS ORDERED: Polyethylene Glycol 3350 17 GM Packet PO PRN (18:24)
[2018-02-04] MEDS: traMADol HCl 50 MG TAB PO PRN (18:33)
[2018-02-04] MEDS: Carvedilol 25 MG TAB PO SCH (20:00)
[2018-02-04] MEDS: hydrALAZINE 25 MG TAB PO SCH (20:00)
[2018-02-04] MEDS: cloNIDine 0.1 MG TAB PO SCH (20:00)
[2018-02-04] MEDS: Lisinopril 20 MG TAB PO SCH (20:01)
[2018-02-04] MEDS ORDERED: Lovastatin 20 MG TAB PO SCH (21:00)
[2018-02-04] MEDS: Acetaminophen ER (8hr) 650 MG TAB PO PRN (22:41)
[2018-02-05] MEDS: traMADol HCl 50 MG TAB PO PRN ×3 (00:27→14:13)
--- NOTE | 2018-02-05 04:36 | HP ---
DATE OF ADMISSION: 02/04/2018 REASON FOR ADMISSION AND CHIEF COMPLAINT: Shortness of breath. HISTORY OF PRESENT ILLNESS: Ms. Gallegos is a 72-year-old female with past medical history of end-stage renal disease, hypertension, diabetes mellitus, came in because of shortness of breath. The patient says when she woke up this morning, she was very short of breath, chest was tight, unable to breathe. She did not have any chest pain, nausea, or vomiting. No headache. The patient goes for dialysis Sunday, Sunday, and Sunday. Last dialysis was on Sunday. This morning, she is supposed to go for dialysis, but shortness of breath got worse, so she called her daughter, who called the ambulance. EMS found the patient in respiratory failure due to fluid overload. She was put on BiPAP because of hypoxia and brought to the emergency room. The patient also received DuoNebs on the way to the hospital. In the ER, the patient was found to be very hypertensive with blood pressure of 234/90 and O2 saturation was 97% on BiPAP. Her BNP was elevated and chest x-ray showed pulmonary edema. The patient received blood pressure medications as well as arranged for emergency dialysis. The patient underwent dialysis now and the patient states she feels better now. Her blood pressure is still elevated. PAST MEDICAL HISTORY: 1. Hypertension. 2. Insulin-dependent diabetes mellitus. 3. End-stage renal disease on hemodialysis. 4. Chronic back pain. 5. Hyperlipidemia. 6. History of respiratory failure due to fluid overload. PAST SURGICAL HISTORY: Status post appendectomy, status post coronary artery bypass graft, status post stent placement, status post lumbar spine surgery. CURRENT MEDICATIONS: The patient is on aspirin 325 mg daily, Renvela 800 mg 3 times daily, lisinopril 20 mg b.i.d., Plavix 75 mg daily, Coreg 25 b.i.d., hydralazine 50 mg 2 tablets b.i.d., diltiazem 60 mg t.i.d., Imdur 60 mg daily, clonidine 0.1 b.i.d., lovastatin 40 mg daily, MiraLax 17 grams daily, ranitidine 1 tablet daily, tramadol p.r.n. ALLERGIES: No known drug allergies. FAMILY HISTORY: Nothing of interest. SOCIAL HISTORY: The patient lives alone. No history of smoking. No history of alcohol intake. REVIEW OF SYSTEMS: Cardiovascular: Denies chest tightness and shortness of breath. Respiratory: No fever or cough. Gastrointestinal: No nausea, vomiting or abdominal pain. Genitourinary: No dysuria or hematuria. Central nervous system: No headache, no dizziness. PHYSICAL EXAMINATION: GENERAL: The patient is alert, awake, oriented x3. VITAL SIGNS: Temperature 98, pulse 75, respirations 20, blood pressure initially 240/90, currently 168/77. HEENT: Head is normocephalic, atraumatic. Pupils are equal and reactive to light. Nasopharynx is pale and dry. Hard and soft palate, no lesions seen. SKIN: Skin turgor decreased. NECK: Supple. No JVD. LUNGS: Breath sounds diminished bilaterally. Percussion not dull bilaterally. No rales, no rhonchi. CARDIAC: S1, S2 regular. ABDOMEN: Soft, no distention, no tenderness. Normal bowel sounds present. RECTAL: Deferred. CENTRAL NERVOUS SYSTEM: No focal deficit. EXTREMITIES: 1+ pitting edema. LABORATORY AND X-RAY FINDINGS: CBC shows WBC 12, hemoglobin 11, hematocrit 36, platelets 220. ABG: A pH of 7.32, pCO2 of 44, pO2 of 60, saturation 88%. Metabolic panel: Sodium 137, potassium 4.5, chloride 98, CO2 of 20, BUN 71, creatinine 9.9, glucose 144. BNP was 3088. EKG shows normal sinus rhythm, no acute ST-T wave changes seen. Chest x-ray showed pulmonary edema. ASSESSMENT: 1. Fluid overload with acute pulmonary edema. 2. End-stage renal disease on hemodialysis. 3. Hypertensive emergency. 4. Diabetes mellitus. 5. Hyperlipidemia. 6. Degenerative joint disease. PLAN: 1. Vital signs q.4 hours. 2. Activity: As tolerated. 3. Allergies: NKDA. 4. Hep-Lock. 5. Diet: ADA renal. 6. Continue home medications. 7. Accu-Chek a.c. and at bedtime. 8. Sliding scale mild with regular insulin. 9. Hemodialysis 3 times a week. MTDD
[2018-02-05] MEDS: Lisinopril 20 MG TAB PO SCH (08:04)
[2018-02-05] MEDS: Sevelamer Carbonate 800 MG TAB PO SCH ×2 (08:04→11:39)
[2018-02-05] MEDS: hydrALAZINE 25 MG TAB PO SCH (08:05)
[2018-02-05] MEDS: Carvedilol 25 MG TAB PO SCH (08:06)
[2018-02-05] MEDS: cloNIDine 0.1 MG TAB PO SCH (08:07)
[2018-02-05] MEDS: Acetaminophen ER (8hr) 650 MG TAB PO PRN (08:07)
[2018-02-05] MEDS ORDERED: Aspirin 325 MG TAB PO SCH (09:00)
[2018-02-05] MEDS ORDERED: Clopidogrel Bisulfate 75 MG TAB PO SCH (09:00)
--- NOTE | 2018-02-05 10:12 | PRG ---
DATE OF SERVICE: 02/05/2018. SUBJECTIVE: Patient was seen and examined at bedside and overnight events noted. Patient denies any shortness of breath or chest pain or palpitation. No history of nausea or vomiting or diarrhea or f ever or chills or cramps. OBJECTIVE: GENERAL: This is a well-built female in no apparent distress. VITAL SIGNS: Temperature 97, pulse 72, respiratory rate 16, blood pressure 130/66. HEENT: Atraumatic, normocephalic. Oral mucosa is moist. NECK: Supple. CARDIOVASCULAR: S1, S2 heard. Rate and rhythm regular. RESPIRATORY: Clear to auscultation. GASTROINTESTINAL: Abdomen is soft. MUSCULOSKELETAL: No tenderness, no edema. DERMATOLOGIC: No skin rash. NEUROLOGIC: Alert and awake and oriented x3. No focal neurologic deficits. Moving all the extremit ies. PSYCHIATRIC: Mood and affect normal. LABORATORY DATA: No labs were done today. ASSESSMENT AND PLAN: 1. End-stage renal disease. Continue on dialysis as tolerated on Sunday, Sunday, and Sunday. 2. Fluid overload, much better. 3. Hypoxia, better. 4. Hypertension, stable. 5. Edema. 6. Anemia. 7. Continue dialysis on Sunday, Sunday, and Sunday as tolerated. No dialysis today.
[2018-02-05 12:09] VITALS: BP 125/57; TEMP 98.1
--- NOTE | 2018-02-08 15:30 | DIS ---
DATE OF ADMISSION: 02/04/2018 DATE OF DISCHARGE: 02/05/2018 ADMITTING DIAGNOSES: 1. Fluid overload with acute pulmonary edema. 2. End-stage renal disease, on hemodialysis. 3. Hypertensive emergency. 4. Diabetes mellitus. 5. Hyperlipidemia. 6. Degenerative joint disease. FINAL DIAGNOSES: 1. Fluid overload with acute pulmonary edema, resolved. 2. End-stage renal disease, on hemodialysis. 3. Hypertensive emergency, improved. 4. Diabetes mellitus. 5. Hyperlipidemia. BRIEF SUMMARY OF HOSPITAL COURSE: Ms. Gallegos is a 72-year-old female, admitted with shortness of breath. The patient had respiratory failure secondary to fluid overload due to pulmonary edema. The patient had emergent dialysis two days and her shortness of breath markedly improved. The patient also had elevated blood pressure, all her medications were given and blood pressure came down, and her shortness of breath improved. She is tolerating dialysis okay. She is eating well. She is able to ambulate also. In view of improvement she is stable for discharge. At the time of discharge, she was stable. Her vital signs stable. Lungs clear, abdomen is soft, nontender, normal bowel sounds heard. DISCHARGE MEDICATIONS: Include; 1. Renvela 800 mg four tablets p.o. t.i.d. 2. Lovastatin 40 mg daily. 3. tyelenol prn. 4. Diltiazem 60 mg t.i.d. 5. Coreg 25 b.i.d. 6. Hydralazine 100 mg b.i.d. 7. Lisinopril 20 mg b.i.d. 8. Ranitidine 150 mg daily. 9. Tylenol p.r.n. 10. MiraLax 17 g daily. 11. Tramadol 50 q.6 p.r.n. 12. Imdur 60 mg daily. 13. Clonidine 0.1 b.i.d. FOLLOWUP: The patient will continue the hemodialysis and she will come for followup in 2 weeks. Job ID: [id number] [facility]
--- NOTE | 2018-02-09 14:27 | EKG ---
Test Reason : Blood Pressure : / mmHG Vent. Rate : 079 BPM Atrial Rate : 079 BPM P-R Int : 170 ms QRS Dur : 092 ms QT Int : 402 ms P-R-T Axes : 015 017 084 degrees QTc Int : 460 ms Normal sinus rhythm with sinus arrhythmia Nonspecific T wave abnormality Abnormal ECG Confirmed by RONNIE GODFREY, ELBA ([id number]), editor greeting card BRITNI PINEDA ([id number]) on 02/09/2018 2:27:12 PM Referred By: Confirmed By:ELBA TRUIJLLO MD
== END 2018-02-05 14:45 | disposition home or self-care (01) ==
LOC: ERS 04:16 → ERHOLD 05:03 → 2SW 16:13
PROVIDERS: ADMIT Internal Medicine; ATTEND Internal Medicine
DX: J81.0 Acute pulmonary edema (principal); E87.70 Fluid overload, unspecified; J96.91 Respiratory failure, unspecified with hypoxia; I12.0 Hypertensive chronic kidney disease with stage 5 chronic kidney disease or end stage renal disease; E11.22 Type 2 diabetes mellitus with diabetic chronic kidney disease; N18.6 End stage renal disease; D63.1 Anemia in chronic kidney disease; I16.1 Hypertensive emergency; M19.90 Unspecified osteoarthritis, unspecified site; G89.29 Other chronic pain; M54.9 Dorsalgia, unspecified; E78.5 Hyperlipidemia, unspecified; M48.00 Spinal stenosis, site unspecified; Z79.02 Long term (current) use of antithrombotics/antiplatelets; Z79.4 Long term (current) use of insulin; Z79.82 Long term (current) use of aspirin; Z79.899 Other long term (current) drug therapy; Z99.2 Dependence on renal dialysis
CPT/HCPCS: 71045; 80053; 82550; 82553; 82805; 82962 ×2; 83880; 84484; 85025; 87040; 93005; 94660; 94760; 96374; 96375; 99285; G0378 ×2; 36415; 36416; 90935; G0257; J2405

== ENCOUNTER 2018-02-25 05:20 | Emergency (ER) | payer MEDICARE ==
[2018-02-25 06:08] LABS: #Basophils 0.1 thou/uL (0.0-0.2); #Eosinphils 0.2 thou/uL (0.0-0.7); #Lymphocytes 0.9 thou/uL (1.20-3.40); #Monocytes 0.7 thou/uL (0.11-0.59); #Neutrophils 7.8 thou/uL (1.40-6.50); %Basophils 0.7 % (0.0-1.0); %Eosinophils 1.8 % (0.0-10.0); %Lymphocytes 9.6 % (21.0-51.0); %Monocytes 7.2 % (0.0-10.0); %Neutrophils 80.8 % (42.0-75.0); Hemoglobin 10.8 g/dL (12.0-16.0); Mean Corpuscular HGB CONC 32.6 g/dL (32.0-36.0); Mean Platelet Volume 7.3 fL (7.4-10.4); Platelet Count 242 thou/uL (130-400); RBC Distribution Width 12.5 % (11.5-14.5); Red Blood Cell (RBC) Count 3.26 mill/uL (4.20-5.40); White Blood Cell (WBC) Count 9.7 thou/uL (4.8-10.8)
[2018-02-25 06:32] LABS: ALT (SGPT) Less than 7 U/L (8-55); AST (SGOT) 13 U/L (5-34); Albumin 3.7 g/dL (3.4-4.8); Alkaline Phosphatase 61 U/L (40-150); Anion Gap 19 mmol/L (10-20); BUN (Urea Nitrogen) 42 mg/dL (9.8-20.1); Bilirubin, Total 0.4 mg/dL (0.2-1.2); Calc. Creatinine Clearance 0 mL/min (70-130); Calcium 9.5 mg/dL (7.8-10.44); Carbon Dioxide 23 mmol/L (23-31); Chloride 99 mmol/L (98-107); Estimated GFR-MDRD 6; Globulin 2.8 g/dL (2.4-3.5); Glucose 122 mg/dL (83-110); Potassium 4.2 mmol/L (3.5-5.1); Protein, Total 6.5 g/dL (6.0-8.3); Sodium 137 mmol/L (136-145)
[2018-02-25 06:52] LABS: CKMB 2.2 ng/mL (0-6.6)
[2018-02-25] MEDS ORDERED: cloNIDine 0.1 MG TAB ONE (07:57)
--- NOTE | 2018-02-25 08:43 | RAD ---
PORTABLE CHEST 1 VIEW: Date: 02/25/18 Time: 0544 hours HISTORY: Shortness of breath. FINDINGS/IMPRESSION: Comparison made with exam of 02/04/18. The heart size is enlarged. Changes of median sternotomy are again seen. There is mild pulmonary vasc ular congestion. No focal areas of consolidation, pneumothoraces, or pleural effusions are seen. POS: OFF
--- NOTE | 2018-02-26 14:07 | EKG ---
Test Reason : Blood Pressure : / mmHG Vent. Rate : 075 BPM Atrial Rate : 075 BPM P-R Int : 166 ms QRS Dur : 092 ms QT Int : 448 ms P-R-T Axes : 036 070 -71 degrees QTc Int : 500 ms Normal sinus rhythm with sinus arrhythmia T wave abnormality, consider inferolateral ischemia Prolonged QT Abnormal ECG No changes from 04-FEB-2018 Confirmed by RAND GRANT DO ([id number]), staff editor BRITNI PINEDA ([id number]) on 02/26/2018 2:07:15 PM Referred By: Confirmed By:RAND GRANT DO
== END 2018-02-25 08:50 | disposition home or self-care (01) ==
LOC: ERS 05:20
DX: R06.02 Shortness of breath (principal); I25.10 Atherosclerotic heart disease of native coronary artery without angina pectoris; E11.22 Type 2 diabetes mellitus with diabetic chronic kidney disease; I13.2 Hypertensive heart and chronic kidney disease with heart failure and with stage 5 chronic kidney disease, or end stage renal disease; I50.9 Heart failure, unspecified; N18.6 End stage renal disease; Z79.899 Other long term (current) drug therapy
CPT/HCPCS: 36415; 71045; 80053; 82553; 83605; 83880; 84484; 85025; 93005

== ENCOUNTER 2018-03-07 11:49 | Outpatient (CLI) | payer MEDICARE ==
--- NOTE | 2018-03-07 13:28 | ULT ---
LEFT LOWER EXTREMITY VENOUS ULTRASOUND WITH DOPPLER: HISTORY: Pain. Fall. Swelling. Edema. COMPARISON: None. TECHNIQUE: Lopez-scale, color-flow, Doppler imaging, and spectral wave-form analysis was performed of the left lo wer extremity venous system. FINDINGS: Limited evaluation due to patient motion. There is compressibility, presence of flow, and augmentation in the common femoral vein, femoral vein , and popliteal vein. There is flow in the greater saphenous vein, profunda vein, and posterior tibi al vein. There is evidence of soft tissue edema. IMPRESSION: 1. No evidence of thrombus in the left lower extremity deep venous system. 2. Soft tissue edema. POS: [facility]
== END 2018-03-07 11:50 | disposition home or self-care (01) ==
LOC: ULT 11:49
PROVIDERS: ATTEND Internal Medicine Nephrology
DX: M79.89 Other specified soft tissue disorders (principal); R60.0 Localized edema

== ENCOUNTER 2018-06-14 20:16 | Inpatient (IN) | payer MEDICARE ==
[2018-06-14] MEDS ORDERED: Dextrose 50% Abboject 50 ML SYRINGE ONE (20:39)
[2018-06-14] MEDS ORDERED: Lidocaine 2% 10 ML INJ ONE (21:25)
[2018-06-14 22:23] LABS: AST (SGOT) 20 U/L (5-34); Albumin 3.2 g/dL (3.4-4.8); Anion Gap 22 mmol/L (10-20); BUN (Urea Nitrogen) Less than 4 mg/dL (9.8-20.1); Bilirubin, Total 0.4 mg/dL (0.2-1.2); Calc. Creatinine Clearance 0 mL/min (70-130); Calcium 9.5 mg/dL (7.8-10.44); Carbon Dioxide 17 mmol/L (23-31); Chloride 101 mmol/L (98-107); Estimated GFR-MDRD 10; Globulin 3.4 g/dL (2.4-3.5); Potassium 4.7 mmol/L (3.5-5.1); Protein, Total 6.6 g/dL (6.0-8.3); Sodium 135 mmol/L (136-145)
[2018-06-14 22:32] LABS: Alkaline Phosphatase 35 U/L (40-150)
[2018-06-14 22:34] LABS: Glucose Less than 7 mg/dL (83-110)
[2018-06-14 23:09] LABS: #Eosinphils 0.1 thou/uL (0.0-0.7); #Lymphocytes 1.1 thou/uL (1.20-3.40); #Monocytes 0.6 thou/uL (0.11-0.59); #Neutrophils 7.7 thou/uL (1.40-6.50); %Basophils 0.5 % (0.0-1.0); %Eosinophils 1.5 % (0.0-10.0); %Monocytes 6.6 % (0.0-10.0); %Neutrophils 80.5 % (42.0-75.0); Hemoglobin 12.2 g/dL (12.0-16.0); Mean Corpuscular Hemoglobin 31.9 pg (27.0-31.0); Mean Corpuscular Volume 99.7 fL (78.0-98.0); Mean Platelet Volume 7.2 fL (7.4-10.4); Platelet Count 242 thou/uL (130-400); RBC Distribution Width 13.6 % (11.5-14.5); Red Blood Cell (RBC) Count 3.84 mill/uL (4.20-5.40); White Blood Cell (WBC) Count 9.6 thou/uL (4.8-10.8)
[2018-06-14] MEDS ORDERED: Morphine 4 MG/ML VIAL ONE (23:11)
[2018-06-14] MEDS ORDERED: Piperacillin/Tazobactam 3.375 GM VIAL ONE (23:11)
[2018-06-15] MEDS ORDERED: Lorazepam 2 MG/ML VIAL ONE (00:09)
[2018-06-15 00:57] LABS: Acetaminophen Less than 6.0 mcg/mL (10.0-30.0); Alcohol Less than 10 mg/dL (Less than 10); Salicylate Less than 8.0 mg/dL (15.0-30.0)
[2018-06-15 01:18] LABS: Bilirubin Negative (Negative); Blood, Urine Small (Negative); Clarity TURBID (Clear); Glucose, Urine (Dipstick) Negative (Negative); Leukocyte Large (Negative); Nitrite Negative (Negative); Protein, Urine (Dipstick) 100 mg/dL (Neg-Trace); Specific Gravity, Urine 1.015 (1.002-1.036); Urobilinogen 0.2 mg/dL (0.2-1.0); pH, Urine 5.5 (5.0-9.0)
[2018-06-15 01:19] LABS: CKMB 4.1 ng/mL (0-6.6)
[2018-06-15 01:20] LABS: Bacteria/HPF 4+ HPF (None Seen); Pathc Cast-AUWi Flag 1.88 (0-2.49)
[2018-06-15 01:27] LABS: Yeast-AUWi Flag 103.5 (0-25.0)
[2018-06-15 01:33] LABS: Amphetamine Not Detected (NotDetected); Barbiturates Screen Not Detected (NotDetected); Benzodiazepine Screen Not Detected (NotDetected); Cocaine Metabolite Screen Not Detected (NotDetected); Medtox Control Line Valid? VALID (VALID); Medtox Reader # READER 4; Methadone Not Detected (NotDetected); Methamphetamine Not Detected (NotDetected); Opiate Screen Detected (NotDetected); Oxycodone Screen Not Detected (NotDetected); Phencyclidine (PCP) Not Detected (NotDetected); THC/Cannabinoid Screen Not Detected (NotDetected); Tricyclic Screen Not Detected (NotDetected)
[2018-06-15 01:51] LABS: Yeast-All Forms None Seen HPF (None Seen)
[2018-06-15] MEDS ORDERED: cloNIDine 0.1 MG TAB ONE ×2 (04:16→04:21)
[2018-06-15] MEDS ORDERED: hydrALAZINE 25 MG TAB ONE (06:49)
--- NOTE | 2018-06-15 07:33 | CT ---
HEAD CT NONCONTRAST: INDICATION: Altered mental status with hypoglycemia. FINDINGS: The ventricular system is age appropriate in size. There is moderate microvascular ischemic disease in the bilateral cerebral hemispheres. Age-indeterminate lacunar infarctions are seen involving the bilateral deep aquino nuclei as well as the bilateral cerebellar hemispheres. No intracranial hemorrha ge, mass effect, or midline shift. There is decreased pneumatization of right mastoid air cells. IMPRESSION: 1. Microvascular ischemic disease superimposed upon multifocal lacunar infarctions, age indeterminat e. As necessary, findings may be further evaluated with brain MRI. 2. No acute intracranial hemorrhage or mass effect. POS: [facility]
[2018-06-15] MEDS ORDERED: Sodium Chloride 0.9% 1,000 ML IV SCH (11:32)
[2018-06-15] MEDS ORDERED: Ondansetron ODT 4 MG TAB SL PRN (11:32)
[2018-06-15] MEDS ORDERED: Ondansetron PF 4 MG/2 ML Vial IVP PRN (11:32)
[2018-06-15] MEDS ORDERED: Insulin Regular 300 UNITS/3 ML VIAL SC PRN (12:40)
[2018-06-15] MEDS ORDERED: Dextrose 50% Abboject 50 ML SYRINGE IVP PRN (12:40)
[2018-06-15] MEDS ORDERED: Dextrose 5% in Water 1,000 ML IV PRN (12:40)
[2018-06-15] MEDS ORDERED: traMADol HCl 50 MG TAB PO PRN (12:47)
[2018-06-15] MEDS: cloNIDine 0.1 MG TAB PO SCH ×2 (13:04→20:17)
[2018-06-15] MEDS: hydrALAZINE 25 MG TAB PO SCH ×2 (13:04→20:17)
[2018-06-15] MEDS: Acetaminophen 325 MG TAB PO PRN ×2 (13:06→22:37)
--- NOTE | 2018-06-15 14:34 | CON ---
DATE OF CONSULTATION: 06/15/2018 CONSULTING PHYSICIAN: Chicho Sevilla MD REASON FOR CONSULTATION: End-stage renal disease evaluation. REASON FOR ADMISSION: Altered mentation. HISTORY OF PRESENT ILLNESS: A 72-year-old female with history of end-stage renal disease on Sunday, Sunday, and Sunday dialysis, coronary artery disease, type 2 diabetes, hypertension, came to the hospital with above complaints. She gets dialysis on Sunday, Sunday and Sunday, and was due for dialysis yesterday. Was quitting her dialysis. Nephrology was consulted. The patient is somnolent. No nausea or vomiting. No chest pain reported. PAST MEDICAL HISTORY: Positive for end-stage renal disease on hemodialysis Sunday, Sunday and Sunday, congestive heart failure, coronary artery disease, hypertension, type 2 diabetes. PAST SURGICAL HISTORY: Cardiac stents, appendectomy, dialysis shunt placement. HOME MEDICATIONS: 1. Carvedilol. 2. Hydralazine. 3. Isosorbide mononitrate. 4. Renvela. 5. Vitamin D3. 6. Diltiazem. 7. Lovastatin. 8. Magnesium. 9. Vitamin C. 10. Dulcolax. 11. Clonidine. 12. Humulin. ALLERGIES: NO KNOWN DRUG ALLERGIES. SOCIAL HISTORY: No smoking, alcohol, or illicit drug abuse. FAMILY HISTORY: No history of kidney disease. REVIEW OF SYSTEMS: CONSTITUTIONAL: Negative for weight loss or gain, ability to conduct usual activities. SKIN: Negative for rash, itching. EYES: Negative for double vision, pain. ENT/MOUTH: Negative for nose bleeding, neck stiffness, pain, tenderness. CARDIOVASCULAR: Negative for palpitations, dyspnea on exertion, orthopnea. RESPIRATORY: Negative for shortness of breath, wheezing, cough, hemoptysis, fever or night sweats. GASTROINTESTINAL: Negative for poor appetite, abdominal pain, heartburn, nausea, vomiting, constipation, or diarrhea. GENITOURINARY: Negative for urgency, frequency, dysuria, nocturia. MUSCULOSKELETAL: Negative for pain, swelling. NEUROLOGIC/PSYCHIATRIC: Negative for anxiety, depression. ALLERGY/IMMUNOLOGIC: Negative for skin rash, bleeding tendency. PHYSICAL EXAMINATION: GENERAL: This is a well-built female, in no apparent distress. VITAL SIGNS: Temperature afebrile, pulse 53, respiratory rate 20, blood pressure 119/65. HEENT: Atraumatic and normocephalic. Oral mucosa is moist. NECK: Supple. CV: S1 and S2 heard. Rate and rhythm regular. RESPIRATORY: Clear. GI: Abdomen is soft. MUSCULOSKELETAL: 1+ edema. DERMATOLOGIC: No skin rash. NEUROLOGIC: Alert and awake. PSYCHIATRIC: Normal mood and affect. LABORATORY DATA: Hemoglobin is 12.2, potassium is 4.7, bicarb is 70, BUN is less than creatinine is 5.2. ASSESSMENT AND PLAN: 1. End-stage renal disease, have dialysis today. She missed her dialysis yesterday. Dialysis nurse notified. 2. Edema, controlled. 3. Hypertension, stable. 4. Hypoalbuminemia. 5. Anemia of chronic disease. Plan to continue on dialysis today and then Sunday, Sunday, and Sunday as tolerated. Thank you for the consult. We will follow. Job ID: [id number]
[2018-06-15] MEDS: traMADol HCl 50 MG TAB PO PRN ×2 (16:50→22:37)
[2018-06-15] MEDS: Sevelamer Carbonate 800 MG TAB PO SCH (17:31)
[2018-06-15] MEDS: Atorvastatin Calcium 10 MG TAB PO SCH (20:18)
[2018-06-15] MEDS: Carvedilol 25 MG TAB PO SCH (20:18)
[2018-06-15] MEDS: Lisinopril 20 MG TAB PO SCH (20:24)
[2018-06-16] MEDS: traMADol HCl 50 MG TAB PO PRN ×3 (05:01→21:52)
[2018-06-16] MEDS: hydrALAZINE 20 MG/ML VIAL SLOW IVP PRN ×4 (05:13→21:54)
[2018-06-16] MEDS: Sevelamer Carbonate 800 MG TAB PO SCH ×3 (08:15→18:32)
[2018-06-16] MEDS: Clopidogrel Bisulfate 75 MG TAB PO SCH (08:16)
[2018-06-16] MEDS: Lisinopril 20 MG TAB PO SCH ×2 (08:16→19:51)
[2018-06-16] MEDS: Aspirin 325 MG TAB PO SCH (08:16)
[2018-06-16] MEDS: hydrALAZINE 25 MG TAB PO SCH ×3 (08:16→19:49)
[2018-06-16] MEDS: cloNIDine 0.1 MG TAB PO SCH ×3 (08:16→19:51)
[2018-06-16] MEDS: Carvedilol 25 MG TAB PO SCH ×2 (08:17→19:50)
--- NOTE | 2018-06-16 12:29 | PRG ---
DATE OF SERVICE: 06/16/2018 SUBJECTIVE: Patient was seen and examined at bedside and overnight events noted. Patient denies any shortness of breath or chest pain or palpitation. No history of nausea or vomiting or diarrhea or fever or chills or cramps. OBJECTIVE: GENERAL: This is a well-built female, in no apparent distress. VITAL SIGNS: Temperature 98.2. Heart rate 62. Respiratory rate . Blood pressure 94/82. HEENT: Atraumatic, normocephalic. Oral mucosa is moist NECK: Supple. CARDIOVASCULAR: S1, S2 heard. Rate and rhythm regular. RESPIRATORY: Clear to auscultation. GASTROINTESTINAL: Abdomen is soft. MUSCULOSKELETAL: No tenderness. No edema. DERMATOLOGIC: No skin rash. NEUROLOGIC: Alert and awake and oriented X3. No focal neurologic deficits. Moving all the extremities. PSYCHIATRIC: Mood and affect normal. LABORATORY DATA: Not done today. ASSESSMENT AND PLAN: 1. End-stage renal disease, currently on hemodialysis on Sunday, Sunday, and Sunday. 2. Edema, controlled. 3. Hypertension. 4. Anemia. 5. Hypoalbuminemia. 6. Altered mentation. 7. Chronic pain syndrome with history of narcotic use. Continue dialysis on Sunday, Sunday, and Sunday. Job ID: [id number]
[2018-06-16] MEDS ORDERED: Heparin 10,000 UNITS/ 10 ML VIAL ONE (13:26)
[2018-06-16] MEDS: Famotidine 20 MG TAB PO SCH (19:45)
[2018-06-16] MEDS: Atorvastatin Calcium 10 MG TAB PO SCH (19:50)
[2018-06-17] MEDS: traMADol HCl 50 MG TAB PO PRN ×3 (05:03→12:14)
[2018-06-17 06:15] LABS: Anion Gap 18 mmol/L (10-20); BUN (Urea Nitrogen) 55 mg/dL (9.8-20.1); Calc. Creatinine Clearance 5 mL/min (70-130); Calcium 9.6 mg/dL (7.8-10.44); Carbon Dioxide 27 mmol/L (23-31); Chloride 92 mmol/L (98-107); Estimated GFR-MDRD 5; Glucose 129 mg/dL (83-110); Potassium 5.2 mmol/L (3.5-5.1); Sodium 132 mmol/L (136-145)
--- NOTE | 2018-06-17 07:42 | HP ---
CHIEF COMPLAINT: Hypoglycemia. HISTORY OF PRESENT ILLNESS: Ms. Gallegos is a 72-year-old female with past medical history of end-stage renal disease, hypertension, and diabetes , who was brought in with hypoglycemia with mental status change. The patient is unable to give proper history. She is still sleepy. She says she took insulin and her sugar went down and she kind of passed out, so she was found a kind of unresponsive in her chair at home. It is not clear, but it looks like she did not eat, and she does not remember how much insulin she took, so her blood sugar was around 30 to 60 prior to coming to the hospital. She was awake, but she was very hypertensive as well as hypothermic. Blood pressure was 250/94 and temperature was 95 initially. The patient was evaluated in the ER and was given a dose of Zosyn because ER physician thought it could be sepsis. The patient also received hydralazine and clonidine in the ER for control of blood pressure. The patient had a seizure episode in the ER possibly due to Hypoglycemia (her blood glucose was very low in the ER) and it stopped spontaneously, but the patient still got Ativan after that. The patient was also found to have urinary tract infection, so received a dose of Zosyn. The patient is still sleepy right now. PAST MEDICAL HISTORY: 1. End-stage renal disease, on hemodialysis. 2. Hypertension. 3. Hyperlipidemia. 4. Diabetes mellitus. 5. Chronic back pain. 6. History of respiratory failure due to fluid overload. PAST SURGICAL HISTORY: 1. Status post appendectomy. 2. Status post CABG. 3. Status post stent placement. 4. Status post lumbar spine surgery. CURRENT MEDICATIONS: The patient is on, 1. Tylenol p.r.n. 2. Atorvastatin 10 mg daily. 3. Coreg 25 b.i.d. 4. Clonidine 0.1 mg p.o. t.i.d. 5. Plavix 75 mg daily. 6. Diltiazem 60 mg t.i.d. 7. Hydralazine 50 mg t.i.d. 8. Lisinopril 20 mg b.i.d. 9. Renvela 3200 mg t.i.d. 10. Tramadol p.r.n. 11. Humulin insulin regular, dosage is not clear at this point. ALLERGIES: NKDA. FAMILY HISTORY: Nothing contributory. SOCIAL HISTORY: The patient lives at home. No history of smoking. No history of alcohol. REVIEW OF SYSTEMS: CARDIOVASCULAR: No chest pain. No shortness of breath. RESPIRATORY: No fever. No cough. GASTROINTESTINAL: No nausea, vomiting, or abdominal pain. CENTRAL NERVOUS SYSTEM: No headaches. PHYSICAL EXAMINATION: GENERAL: The patient is awake, not very alert. VITAL SIGNS: Temperature 98, pulse 70, respirations 20, blood pressure 180/80. HEENT: Head is normocephalic and atraumatic. Pupils are equal and reactive. Nasopharynx is pale and dry. Hard and soft, no lesions. SKIN: Turgor decreased. NECK: Supple. No JVD. LUNGS: Bilateral air entry present. No rales or rhonchi. HEART: S1 and S2 regular. ABDOMEN: Soft. No distention. No tenderness. Normal bowel sounds. RECTAL: Deferred. CENTRAL NERVOUS SYSTEM: The patient is awake, not very alert. Motor system power 4/5 in all extremities. Deep tendon reflex 2+ bilaterally. Plantars downgoing. Sensory is intact. LABORATORY DATA: CBC shows WBC 11.6, hemoglobin 12, hematocrit 38, and platelets 242. Metabolic panel; sodium 135, potassium 4.7, chloride 101, CO2 of 20. Urea nitrogen is less than 4. Creatinine was 5.2. Glucose is less than 7. Urinalysis; urine wbc greater than 50, bacteria 4+. EKG is sinus bradycardia, no acute ST-T changes seen. Chest x-ray not done. CT of the brain showed no acute intracranial abnormalities seen, except microvascular ischemic disease superimposed on multifocal lacunar infarctions. ASSESSMENT: 1. Severe symptomatic hypoglycemia. 2. Hypothermia. 3. Urinary tract infection, rule out sepsis. 4. Insulin-dependent diabetes mellitus. 5. Hypertension. 6. Hypertensive emergency. 7. End-stage renal disease, on hemodialysis. 8. Chronic back pain. PLAN: 1. Vitals signs q.4 hours. 2. Activity, as tolerated. 3. Allergies; NKDA. 4. Hep-Lock. 5. Rocephin 2 g IV piggyback daily. 6. Continue home medications. 7. We will hold Humulin insulin. 8. We will monitor blood sugars and cultures and monitor for any seizures. Job ID: [id number] [facility]
[2018-06-17] MEDS: Sevelamer Carbonate 800 MG TAB PO SCH ×3 (08:00→18:33)
[2018-06-17] MEDS: cloNIDine 0.1 MG TAB PO SCH ×3 (09:00→21:36)
[2018-06-17] MEDS: hydrALAZINE 25 MG TAB PO SCH ×3 (09:00→21:36)
[2018-06-17] MEDS: Clopidogrel Bisulfate 75 MG TAB PO SCH (12:12)
[2018-06-17] MEDS: Aspirin 325 MG TAB PO SCH (12:14)
[2018-06-17] MEDS: Carvedilol 25 MG TAB PO SCH ×2 (12:22→21:36)
[2018-06-17] MEDS: Lisinopril 20 MG TAB PO SCH ×2 (12:26→21:37)
--- NOTE | 2018-06-17 14:45 | PQF ---
ROBERT HOFFMANN VENKAT R MD [id number] [facility]-285 [id number] CLINICAL DOCUMENTATION IMPROVEMENT CLARIFICATION FORM: ICD-10 Updated PLEASE DO AN ADDENDUM TO THE PROGRESS NOTE WITH ANY DOCUMENTATION UPDATES OR ADDITIONS AND CARRY THROUGH TO DC SUMMARY. THANK YOU. DATE: 06/17 ATTN: DR. Tato HANNAH Please exercise your independent, professional judgment in responding to the clarification form. Clinical indicators are provided on the bottom of this form for your review. Please check appropriate box(s): [ y] Encephalopathy: Type: [ y] Acute [ ] Subacute [ ] Chronic Etiology: [ ] Hypertensive [ y Metabolic [ ] Septic [ ] Other diagnosis [ ] Unable to determine In addition, please specify: Present on Admission (POA): [ y Yes [ ] No [ ] Unable to determine For continuity of documentation, please document condition throughout progress notes and discharge summary. Thank You. CLINICAL INDICATORS - SIGNS / SYMPTOMS / LABS ER PHYSICIAN DOCUMENTATION 06/15: FOUND UNRESPONSIVE PRESENTS WITH AMS & HYPOGLYCEMIA ATTENDING H&P 06/15: PHYSICAL EXAM: GENERAL: THE PATIENT IS AWAKE, NOT VERY ALERT ATTENDING PN 06/16: BETTER TODAY, MORE AWAKE NEPHROLOGY CON 06/15: REASON FOR ADMISSION: ALTERED MENTATION; HX OF PRESENT ILLNESS: PT IS SOMNOLENT NEPHROLOGY PN 06/16: ALERT & AWAKE & ORIENTED X3 RISKS: SEVERE HYPOGLYCEMIA HYPERTENSIVE EMERGENCY DM II UTI TREATMENT: ACCUCHECKS AC/HS IV ANTIBIOTIC (ZOSYN IN ER) RESUMED HOME BP MEDICATIONS THANK YOU! Pearl (This form is maintained as a part of the permanent medical record) 2014 [employer]. All Rights Reserved Pearl Encarnacion, RN, BSN [email or web address] Office: [phone] [facility]
--- NOTE | 2018-06-17 14:49 | PQF ---
ROBERT HOFFMANN VENKAT R MD [id number] [facility]-285 [id number] CLINICAL DOCUMENTATION IMPROVEMENT CLARIFICATION FORM: ICD-10 Updated PLEASE DO AN ADDENDUM TO THE PROGRESS NOTE WITH ANY DOCUMENTATION UPDATES OR ADDITIONS AND CARRY THROUGH TO DC SUMMARY. THANK YOU. DATE: 06/17 ATTN: DR. Tato HANNAH Please exercise your independent, professional judgment in responding to the clarification form. Clinical indicators are provided on the bottom of this form for your review. Please check appropriate box(s) to clarify if the following diagnosis has been ruled in or ruled out: RULE OUT SEPSIS [ ] Ruled in diagnosis [ ] Continue to treat [ ] Resolved [ y] Ruled out diagnosis [ ] Other diagnosis [ ] Unable to determine In addition, please specify: Present on Admission (POA): [ y] Yes [ ] No [ ] Unable to determine For continuity of documentation, please document condition throughout progress notes and discharge summary. Thank You. CLINICAL INDICATORS - SIGNS / SYMPTOMS / LABS ER PRESENTATION 06/15: AMS T: 94.1 (R) ZOË BRANDONGGER APPLIED RR: 29 WBC: 11.6 URINALYSIS: LARGE L.E., WBC TNTC, 4+ BACTERIA ER PHYSICIAN DIAGNOSES: SEPSIS, HYPOGLYCEMIA, HYPOTHERMIA, SEIZURE ATTENDING H&P 06/15: HX OF PRESENT ILLNESS: ...BROUGHT IN WITH HYPOGLYCEMIA W/ MENTAL STATUS CHANGE.. ...THE PT WAS EVALUATED IN THE ER & WAS GIVEN A DOSE OF ZOSYN BECAUSE ER PHYSICIAN THOUGH IT COULD BE SEPSIS ASSESSMENT: 3) UTI, RULE OUT SEPSIS; PLAN: 5) ROCEPHIN 2G IV PIGGYBACK DAILY NO FURTHER MENTION OF SEPSIS TO DATE RISKS: HYPOTHERMIA UTI TREATMENT: IV ZOSYN IN ED 06/15 THANK YOU! Pearl (This form is maintained as a part of the permanent medical record) 2015 [employer]. All Rights Reserved Pearl Encarnacion RN, BSN [email or web address] Office: [phone] [facility]
--- NOTE | 2018-06-17 15:47 | PRG ---
DATE OF SERVICE: SUBJECTIVE: Patient was seen and examined at bedside and overnight events noted. Patient denies any shortness of breath or chest pain or palpitation. No history of nausea or vomiting or diarrhea or fever or chills or cramps. OBJECTIVE: GENERAL: This is a well-built female, in no apparent distress. VITAL SIGNS: Temperature 98.1. Heart rate 58. Respiratory rate 16. Blood pressure 195/73. HEENT: Atraumatic, normocephalic. Oral mucosa is moist NECK: Supple. CARDIOVASCULAR: S1, S2 heard. Rate and rhythm regular. RESPIRATORY: Clear to auscultation. GASTROINTESTINAL: Abdomen is soft. MUSCULOSKELETAL: No tenderness. No edema. DERMATOLOGIC: No skin rash. NEUROLOGIC: Alert and awake and oriented X3. No focal neurologic deficits. Moving all the extremities. PSYCHIATRIC: Mood and affect normal. LABORATORY DATA: Potassium is 5.2, BUN is 55, creatinine is 8.8. ASSESSMENT AND PLAN: 1. End-stage renal disease, continue on hemodialysis on Sunday, Sunday, and Sunday. 2. Edema, controlled. 3. Hypertension. 4. Anemia. 5. Hypoalbuminemia. 6. Altered mentation. Plan is to continue on dialysis as tolerated. Job ID: [id number]
[2018-06-17] MEDS: Famotidine 20 MG TAB PO SCH (21:36)
[2018-06-17] MEDS: Atorvastatin Calcium 10 MG TAB PO SCH (21:36)
[2018-06-18] MEDS: hydrALAZINE 20 MG/ML VIAL SLOW IVP PRN (04:02)
[2018-06-18] MEDS: cloNIDine 0.1 MG TAB PO SCH ×3 (06:32→21:28)
[2018-06-18] MEDS: traMADol HCl 50 MG TAB PO PRN ×2 (08:32→18:40)
[2018-06-18] MEDS: Aspirin 325 MG TAB PO SCH (08:32)
[2018-06-18] MEDS: Clopidogrel Bisulfate 75 MG TAB PO SCH (08:33)
[2018-06-18] MEDS: hydrALAZINE 25 MG TAB PO SCH ×3 (08:33→21:28)
[2018-06-18] MEDS: Sevelamer Carbonate 800 MG TAB PO SCH ×3 (08:39→16:55)
[2018-06-18] MEDS: Lisinopril 20 MG TAB PO SCH ×2 (08:39→21:29)
[2018-06-18] MEDS: Carvedilol 25 MG TAB PO SCH ×2 (08:39→21:29)
--- NOTE | 2018-06-18 18:18 | PRG ---
DATE OF SERVICE: 06/18/2018 SUBJECTIVE: Patient was seen and examined at bedside and overnight events noted. Patient denies any shortness of breath or chest pain or palpitation. No history of nausea or vomiting or diarrhea or fever or chills or cramps. OBJECTIVE: GENERAL: This is a well-built female, in no apparent distress. VITAL SIGNS: Temperature 98.7. Heart rate 65. Respiratory rate 18. Blood pressure 144/50. HEENT: Atraumatic, normocephalic. Oral mucosa is moist NECK: Supple. CARDIOVASCULAR: S1, S2 heard. Rate and rhythm regular. RESPIRATORY: Clear to auscultation. GASTROINTESTINAL: Abdomen is soft. MUSCULOSKELETAL: No tenderness. No edema. DERMATOLOGIC: No skin rash. NEUROLOGIC: Alert and awake and oriented X3. No focal neurologic deficits. Moving all the extremities. PSYCHIATRIC: Mood and affect normal. LABORATORY DATA: Not done today. ASSESSMENT AND PLAN: 1. End-stage renal disease, continue on dialysis on Sunday, Sunday, and Sunday. 2. Edema, controlled. 3. Hypertension. 4. Anemia. 5. Altered mentation, stable. Plan to continue on dialysis as tolerated. Job ID: [id number]
--- NOTE | 2018-06-18 19:52 | RAD ---
AP PELVIS: 06/18/18 HISTORY: Central line placement on the right side. FINDINGS/IMPRESSION: There is right sided femoral central line with tip at the level of L5. There are postop changes in the right side of the pelvis and the left proximal thigh. Vascular calcif ications are present. No acute fracture or dislocation is identified. POS: [facility]
[2018-06-18] MEDS: Atorvastatin Calcium 10 MG TAB PO SCH (21:25)
[2018-06-18] MEDS: Famotidine 20 MG TAB PO SCH (21:28)
[2018-06-19] MEDS: traMADol HCl 50 MG TAB PO PRN (05:54)
[2018-06-19] MEDS: Sevelamer Carbonate 800 MG TAB PO SCH ×3 (08:07→18:12)
[2018-06-19] MEDS: cloNIDine 0.1 MG TAB PO SCH ×3 (08:07→22:01)
[2018-06-19] MEDS: hydrALAZINE 25 MG TAB PO SCH ×3 (08:08→22:03)
[2018-06-19] MEDS: Lisinopril 20 MG TAB PO SCH ×2 (08:08→22:07)
[2018-06-19] MEDS: Aspirin 325 MG TAB PO SCH (10:10)
[2018-06-19] MEDS: Acetaminophen ER (8hr) 650 MG TAB PO PRN (10:10)
[2018-06-19] MEDS: Clopidogrel Bisulfate 75 MG TAB PO SCH (10:10)
[2018-06-19] MEDS: Carvedilol 25 MG TAB PO SCH ×2 (10:11→22:01)
[2018-06-19] MEDS ORDERED: cefTRIAXone\\ROCEPHIN 2 GM in Sodium Chloride 0.9% 100 ML IVPB SCH (15:30)
--- NOTE | 2018-06-19 17:42 | PRG ---
DATE OF SERVICE: 06/19/2018 SUBJECTIVE: Patient was seen and examined at bedside and overnight events noted. Patient denies any shortness of breath or chest pain or palpitation. No history of nausea or vomiting or diarrhea or fever or chills or cramps. OBJECTIVE: GENERAL: This is a well-build female, in no acute distress. VITAL SIGNS: Temperature 99.1. Heart rate 59. Respiratory rate 18. Blood pressure 139/63. HEENT: Atraumatic, normocephalic. Oral mucosa is moist NECK: Supple. CARDIOVASCULAR: S1, S2 heard. Rate and rhythm regular. RESPIRATORY: Clear to auscultation. GASTROINTESTINAL: Abdomen is soft. MUSCULOSKELETAL: No tenderness. No edema. DERMATOLOGIC: No skin rash. NEUROLOGIC: Alert and awake and oriented X3. No focal neurologic deficits. Moving all the extremities. PSYCHIATRIC: Mood and affect normal. LABORATORY DATA: Not done today. ASSESSMENT AND PLAN: 1. End-stage renal disease, continue on dialysis on Sunday, Sunday, and Sunday. 2. Edema. 3. Hypertension. 4. Anemia. 5. Altered mentation. Continue on dialysis on Sunday, Sunday, and Sunday. Job ID: [id number]
[2018-06-19] MEDS ORDERED: Milk Of Magnesia 30 ML UDCUP PO SCH (22:00)
[2018-06-19] MEDS: Atorvastatin Calcium 10 MG TAB PO SCH (22:01)
[2018-06-19] MEDS: Famotidine 20 MG TAB PO SCH (22:02)
[2018-06-20] MEDS: Sevelamer Carbonate 800 MG TAB PO SCH ×3 (08:50→18:41)
[2018-06-20] MEDS: cloNIDine 0.1 MG TAB PO SCH ×3 (08:51→21:07)
[2018-06-20] MEDS: Clopidogrel Bisulfate 75 MG TAB PO SCH (08:51)
[2018-06-20] MEDS: Docusate 100 MG CAP PO SCH ×2 (08:51→21:08)
[2018-06-20] MEDS: Aspirin 325 MG TAB PO SCH (08:51)
[2018-06-20] MEDS: Carvedilol 25 MG TAB PO SCH ×2 (08:51→21:08)
[2018-06-20] MEDS: hydrALAZINE 25 MG TAB PO SCH ×3 (08:51→21:08)
[2018-06-20] MEDS: Lisinopril 20 MG TAB PO SCH ×2 (08:51→21:08)
[2018-06-20] MEDS: cefTRIAXone\\ROCEPHIN 2 GM in Sodium Chloride 0.9% 100 ML IVPB SCH (08:52)
[2018-06-20] MEDS: Acetaminophen ER (8hr) 650 MG TAB PO PRN ×2 (13:38→21:09)
[2018-06-20 13:47] VITALS: BMI 23.7
--- NOTE | 2018-06-20 15:41 | PRG ---
DATE OF SERVICE: SUBJECTIVE: Patient was seen and examined at bedside and overnight events noted. Patient denies any shortness of breath or chest pain or palpitation. No history of nausea or vomiting or diarrhea or fever or chills or cramps. OBJECTIVE: GENERAL: This is a well-built female, in no apparent distress. VITAL SIGNS: Temperature 97.5. Heart rate 65. Respiratory rate 16. Blood pressure 148/63. HEENT: Atraumatic, normocephalic. Oral mucosa is moist NECK: Supple. CARDIOVASCULAR: S1, S2 heard. Rate and rhythm regular. RESPIRATORY: Clear to auscultation. GASTROINTESTINAL: Abdomen is soft. MUSCULOSKELETAL: No tenderness. No edema. DERMATOLOGIC: No skin rash. NEUROLOGIC: Alert and awake and oriented X3. No focal neurologic deficits. Moving all the extremities. PSYCHIATRIC: Mood and affect normal. LABORATORY DATA: None today. ASSESSMENT AND PLAN: 1. End-stage renal disease, continue on dialysis as tolerated. 2. Edema. 3. Hypertension. 4. Anemia. Plan is to continue on dialysis as tolerated. Job ID: [id number]
[2018-06-20] MEDS: Atorvastatin Calcium 10 MG TAB PO SCH (21:07)
[2018-06-20] MEDS: Famotidine 20 MG TAB PO SCH (21:08)
[2018-06-21] MEDS: traMADol HCl 50 MG TAB PO PRN ×2 (01:01→12:25)
[2018-06-21] MEDS: Acetaminophen ER (8hr) 650 MG TAB PO PRN (08:17)
[2018-06-21] MEDS: Clopidogrel Bisulfate 75 MG TAB PO SCH (08:17)
[2018-06-21] MEDS: Carvedilol 25 MG TAB PO SCH (08:17)
[2018-06-21] MEDS: Sevelamer Carbonate 800 MG TAB PO SCH ×2 (08:18→12:24)
[2018-06-21] MEDS: Aspirin 325 MG TAB PO SCH ×2 (08:18→12:24)
[2018-06-21] MEDS: cloNIDine 0.1 MG TAB PO SCH ×2 (08:19→15:34)
[2018-06-21] MEDS: Lisinopril 20 MG TAB PO SCH (08:19)
[2018-06-21] MEDS: Docusate 100 MG CAP PO SCH ×2 (08:19→12:25)
[2018-06-21] MEDS: hydrALAZINE 25 MG TAB PO SCH ×2 (08:19→15:34)
[2018-06-21] MEDS: cefTRIAXone\\ROCEPHIN 2 GM in Sodium Chloride 0.9% 100 ML IVPB SCH ×3 (08:21→12:28)
--- NOTE | 2018-06-21 12:10 | PRG ---
DATE OF SERVICE: 06/21/2018 SUBJECTIVE: Patient was seen and examined at bedside and overnight events noted. Patient denies any shortness of breath or chest pain or palpitation. No history of nausea or vomiting or diarrhea or fever or chills or cramps. OBJECTIVE: GENERAL: This is a well-built female, in no acute distress. VITAL SIGNS: Temperature 98.1. Heart rate 54. Respiratory rate 18. Blood pressure 148/65. HEENT: Atraumatic, normocephalic. Oral mucosa is moist. NECK: Supple. CARDIOVASCULAR: S1, S2 heard. Rate and rhythm regular. RESPIRATORY: Clear to auscultation. GASTROINTESTINAL: Abdomen is soft. MUSCULOSKELETAL: No tenderness. No edema. DERMATOLOGIC: No skin rash. NEUROLOGIC: Alert and awake and oriented x3. No focal neurologic deficits. Moving all the extremities. PSYCHIATRIC: Mood and affect normal. LABORATORY DATA: No labs done today. ASSESSMENT AND PLAN: 1. End-stage renal disease, continue on dialysis as tolerated. 2. Edema. Remove fluid. 3. Hypertension. 4. Anemia. We will monitor. Plan to continue on dialysis as tolerated. Job ID: [id number]
[2018-06-21 15:38] VITALS: BP 137/88; TEMP 98
== END 2018-06-21 16:36 | disposition home health service (06) | DRG 689 ==
LOC: ERS 20:16 → ERHOLD 06-15 02:03 → 2NO 06-15 11:30
PROVIDERS: ADMIT Internal Medicine; ATTEND Internal Medicine
DX: N39.0 Urinary tract infection, site not specified (principal); G93.41 Metabolic encephalopathy; N18.6 End stage renal disease; I13.0 Hypertensive heart and chronic kidney disease with heart failure and stage 1 through stage 4 chronic kidney disease, or unspecified chronic kidney disease; I16.1 Hypertensive emergency; E11.649 Type 2 diabetes mellitus with hypoglycemia without coma; I25.10 Atherosclerotic heart disease of native coronary artery without angina pectoris; I50.9 Heart failure, unspecified; E88.09 Other disorders of plasma-protein metabolism, not elsewhere classified; G89.4 Chronic pain syndrome; D63.1 Anemia in chronic kidney disease; R68.0 Hypothermia, not associated with low environmental temperature; Z95.1 Presence of aortocoronary bypass graft; Z99.2 Dependence on renal dialysis; Z79.4 Long term (current) use of insulin; Z79.899 Other long term (current) drug therapy; Z90.49 Acquired absence of other specified parts of digestive tract; Z95.5 Presence of coronary angioplasty implant and graft
CPT/HCPCS: 36415; 36416; 36556; 51701; 70450; 72170; 80048; 80053; 80306; 80307; 81003; 81015; 82553; 83605; 83690; 84443; 84484; 85025; 90935; 93005; 96365; 96374; 96375; 99292; A4353; G0257; J0360; J0696; J1644; J2001; J2060; J2270; J2543; J3490

== ENCOUNTER 2018-10-10 20:37 | Observation (INO) | payer MEDICARE ==
--- NOTE | 2018-10-10 21:39 | RAD ---
2 views chest: 10/10/2018 COMPARISON: 05/19/2014 HISTORY: Dyspnea FINDINGS: There is increased linear interstitial density in the perihilar regions and both lung bases with pulmonary vascular congestion. No pneumothorax or pleural fluid. No focal consolidation or alveolar edema. Midline sternotomy wires are present. IMPRESSION: Findings suggesting interstitial pulmonary edema. Follow-up imaging following treatment a dvised.
[2018-10-10 21:44] LABS: #Eosinphils 0.2 thou/uL (0.0-0.7); #Lymphocytes 1.4 thou/uL (1.20-3.40); #Monocytes 0.8 thou/uL (0.11-0.59); #Neutrophils 5.8 thou/uL (1.40-6.50); %Basophils 0.5 % (0.0-1.0); %Lymphocytes 17.4 % (21.0-51.0); %Monocytes 9.7 % (0.0-10.0); %Neutrophils 70.5 % (42.0-75.0); Hemoglobin 12.2 g/dL (12.0-16.0); Mean Corpuscular HGB CONC 33.2 g/dL (32.0-36.0); Mean Corpuscular Hemoglobin 32.4 pg (27.0-31.0); Mean Corpuscular Volume 97.5 fL (78.0-98.0); Mean Platelet Volume 7.8 fL (7.4-10.4); Platelet Count 212 thou/uL (130-400); RBC Distribution Width 12.1 % (11.5-14.5); Red Blood Cell (RBC) Count 3.77 mill/uL (4.20-5.40); White Blood Cell (WBC) Count 8.3 thou/uL (4.8-10.8)
[2018-10-10] MEDS ORDERED: Nitroglycerin 2% Ointment 1 INCH/1 GM Packet ONE (22:04)
[2018-10-10 22:09] LABS: ALT (SGPT) Less than 7 U/L (8-55); AST (SGOT) 10 U/L (5-34); Albumin 4.1 g/dL (3.4-4.8); Alkaline Phosphatase 79 U/L (40-150); Anion Gap 21 mmol/L (10-20); BUN (Urea Nitrogen) 83 mg/dL (9.8-20.1); Bilirubin, Total 0.6 mg/dL (0.2-1.2); Calc. Creatinine Clearance 0 mL/min (70-130); Calcium 9.5 mg/dL (7.8-10.44); Carbon Dioxide 22 mmol/L (23-31); Chloride 102 mmol/L (98-107); Estimated GFR-MDRD 4; Globulin 2.6 g/dL (2.4-3.5); Glucose 120 mg/dL (83-110); Potassium 4.7 mmol/L (3.5-5.1); Protein, Total 6.7 g/dL (6.0-8.3); Sodium 140 mmol/L (136-145)
[2018-10-10 22:13] LABS: Troponin I 0.069 ng/mL (< 0.028)
[2018-10-11] MEDS ORDERED: Acetaminophen 325 MG TAB ONE (01:32)
[2018-10-11 02:10] LABS: Troponin I 0.061 ng/mL (< 0.028)
[2018-10-11 04:07] LABS: HBSAg Index 0.33 S/CO (0-0.99); Hep B Surf Ag Non-Reactive S/CO (NonReactive)
[2018-10-11] MEDS: traMADol HCl 50 MG TAB PO PRN ×2 (04:50→10:54)
[2018-10-11 05:24] LABS: Troponin I 0.105 ng/mL (< 0.028)
[2018-10-11] MEDS ORDERED: hydrALAZINE 20 MG/ML VIAL SLOW IVP PRN (06:30)
[2018-10-11] MEDS ORDERED: Morphine 2 MG/ML SYRINGE SLOW IVP SCH (06:30)
[2018-10-11] MEDS ORDERED: Acetaminophen ER (8hr) 650 MG TAB PO PRN (06:38)
[2018-10-11] MEDS: Sevelamer Carbonate 800 MG TAB PO SCH ×2 (08:14→12:18)
--- NOTE | 2018-10-11 08:47 | CON ---
DATE OF CONSULTATION: 10/10/2018 TIME OF SERVICE: In the emergency room at 11:00 p.m. REASON FOR CONSULTATION: End-stage renal disease and dyspnea. HISTORY OF PRESENT ILLNESS: This is a very pleasant 73-year-old noncompliant female, who presents to the hospital after missing dialysis for about more than a week and getting inadequate dialysis on Sunday. The patient complains of dyspnea. She is supposed to be dialyzed tomorrow. The patient denies no headache, nausea, vomiting, or chest pain. PAST MEDICAL HISTORY: Significant for end-stage renal disease, hypertension, anemia, history of chronic back pain, history of degenerative disease of the spine, history of AV fistula, history of tunneled dialysis catheter, history of diabetes mellitus, history of CABG, appendectomy, coronary artery disease, and stent placement. MEDICATIONS: Home medications list reviewed. Hospital medications list reviewed. ALLERGIES: REVIEWED. REVIEW OF SYSTEMS: Fifteen-point review of system was performed and negative except for positives noted above. GENERAL: HEAD: NECK: No swelling or lumps. NOSE: No epistaxis or discharge. EYES: No diplopia or pain. 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 NEUROPSYCHIATIC SYSTEMS: No suicidal ideation. No ideation. SKIN: Denies any rash or ulcer. CONSTITUTIONAL: No fever or chills. PHYSICAL EXAMINATION: CONSTITUTIONAL: On exam, the patient is awake and alert. VITAL SIGNS: Afebrile, pulse 75, breathing 16, and blood pressure was 180/90. GENERAL APPEARANCE AND MENTAL STATUS: Fair. HEAD/NECK: Normocephalic. Atraumatic. EYES: EOMI. No deformity. EARS: Clear. No ulcers. NOSE: Intact. No lesions. MOUTH: Clear. No discharge. THROAT: Clear. No exudate. LUNGS: Clear. No crackles. CARDIAC: S1, S2. No rub. ABDOMEN: Benign. Bowel sounds positive. GENITALIA/RECTUM: Dennis absent. BACK/EXTREMITIES: Edema 0+. NEUROLOGICAL: Alert and motor intact. SKIN: LYMPHATICS: LABORATORY DATA: Reviewed. ASSESSMENT AND PLAN: 1. Stage 6 chronic kidney disease. Plan urgent dialysis. Nurse will follow. 2. Anemia, stable. 3. Medications based on glomerular filtration rate are appropriate. Compliance was discussed with the patient. Job ID: [id number]
[2018-10-11] MEDS ORDERED: cloNIDine 0.1 MG TAB PO SCH ×2 (09:00→10:45)
[2018-10-11] MEDS ORDERED: hydrALAZINE 25 MG TAB PO SCH ×3 (09:00→15:00)
[2018-10-11] MEDS ORDERED: Carvedilol 25 MG TAB PO SCH (09:00)
[2018-10-11] MEDS ORDERED: Prevnar 13-Val Conj/PF 0.5 ML SYRINGE IM ONE (09:00)
[2018-10-11] MEDS ORDERED: Lisinopril 20 MG TAB PO SCH (09:00)
[2018-10-11] MEDS ORDERED: Clopidogrel Bisulfate 75 MG TAB PO SCH (09:00)
[2018-10-11] MEDS ORDERED: Aspirin 325 MG TAB PO SCH (09:00)
--- NOTE | 2018-10-11 09:23 | PRG ---
DATE OF SERVICE: 10/11/2018 SUBJECTIVE: A 73-year-old female being seen for end-stage renal disease. The patient denies any nausea, vomiting or chest pain. OBJECTIVE: GENERAL: The patient is awake and alert. VITAL SIGNS: Afebrile, pulse 75, breathing 16, blood pressure 190/75. GENERAL APPEARANCE AND MENTAL STATUS: Fair. HEAD/NECK: Normocephalic. Atraumatic. EYES: EOMI. No deformity. EARS: Clear. No ulcers. NOSE: Intact. No lesions. MOUTH: Clear. No discharge. THROAT: Clear. No exudate. LUNGS: Clear. No crackles. CARDIAC: S1, S2. No rub. ABDOMEN: Benign. Bowel sounds positive. GENITALIA/RECTUM: Dennis absent. BACK/EXTREMITIES: Edema 0+. NEUROLOGICAL: Alert and motor intact. SKIN: LYMPHATICS: LABORATORY DATA: Reviewed. ASSESSMENT: 1. Stage 6 chronic kidney disease, continue hemodialysis. 2. Hypertension, stable. 3. Anemia, stable. 4. Medication based on GFR appropriate. Job ID: [id number]
[2018-10-11] MEDS ORDERED: Dextrose 50% Abboject 50 ML SYRINGE IVP PRN (11:19)
[2018-10-11] MEDS ORDERED: Insulin Regular 300 UNITS/3 ML VIAL SC PRN (11:19)
[2018-10-11] MEDS ORDERED: Dextrose 5% in Water 1,000 ML IV PRN (11:19)
[2018-10-11 13:36] VITALS: BMI 23.8
[2018-10-11] MEDS ORDERED: cloNIDine 0.2 MG TAB PO SCH (15:00)
[2018-10-11 16:00] VITALS: BP 145/65
[2018-10-11 16:06] VITALS: TEMP 98.2
[2018-10-11] MEDS ORDERED: Famotidine 20 MG TAB PO SCH (21:00)
[2018-10-11] MEDS ORDERED: Atorvastatin Calcium 10 MG TAB PO SCH (21:00)
--- NOTE | 2018-10-12 00:16 | HP ---
CHIEF COMPLAINT: Shortness of breath and elevated blood pressure. HISTORY OF PRESENT ILLNESS: Ms. Gallegos is a 73-year-old female with past medical history end-stage renal disease, on hemodialysis; hypertension; diabetes mellitus; came because she could not breathe. The patient missed her dialysis. She did not have any chest pain, nausea, vomiting. The patient came to the emergency room because of worsening shortness of breath. She was found to have markedly elevated blood pressure. The patient claims she has been taking her medications at home. When she got short of breath, she used her brother's oxygen which helped somewhat, but the shortness of breath was getting worse, so she came to the hospital. In the ER, the patient was found to be mixed with fluid overload because of not getting dialysis. The patient received nitroglycerin and Tylenol and Nephrology was consulted for emergency dialysis. The patient underwent dialysis and then admitted to the floor. The patient complained of back pain which is chronic. PAST MEDICAL HISTORY: End-stage renal disease, on hemodialysis; hypertension; hyperlipidemia; diabetes mellitus; chronic back pain; history of respiratory failure secondary to fluid overload. PAST SURGICAL HISTORY: Status post appendectomy, status post CABG, status post stent placement, status post lumbar spine surgery. CURRENT MEDICATIONS: The patient is on; 1. Tylenol p.r.n. 2. Aspirin 325 mg daily. 3. Coreg 25 b.i.d. 4. Clonidine 0.2 mg daily and then p.r.n. 5. Plavix 75 mg daily. 6. Diltiazem 60 mg t.i.d. 7. Pepcid 20 mg daily. 8. Hydralazine 100 mg t.i.d. 9. Imdur 30 mg daily. 10. Lisinopril 20 b.i.d. 11. Lovastatin 40 mg daily. 12. Renvela 4 tablets t.i.d. 13. Tramadol p.r.n. ALLERGIES: NKDA. FAMILY HISTORY: Nothing contributory. SOCIAL HISTORY: Patient lives alone. No history of smoking. No history of alcohol. REVIEW OF SYSTEMS: CARDIOVASCULAR: No chest pain. Has shortness of breath. RESPIRATORY: Has no cough, no congestion, no fever. GASTROINTESTINAL: No nausea, vomiting. No abdominal pain. CENTRAL NERVOUS SYSTEM: No headache. No dizziness. PHYSICAL EXAMINATION: GENERAL: The patient is alert, awake, and oriented x3. VITAL SIGNS: Temperature 99.3, pulse 89, respirations 20, blood pressure 250/120. HEENT: Head is normocephalic and atraumatic. Pupils are equal and reactive. Nasopharynx is pink and moist. NECK: Supple. No JVD. LUNGS: Bilateral air entry present. Rales present bilaterally. HEART: S1-S2 regular. ABDOMEN: Soft. No distention. No tenderness. Normal bowel sounds. RECTAL: Deferred. CENTRAL NERVOUS SYSTEM: No focal deficits. LABORATORY DATA: CBC: WBC 8.3, hemoglobin 12, hematocrit 36, platelets 212. Metabolic panel; sodium 140, potassium 4.7, chloride 102, CO2 of 20, BUN 10, creatinine 12, glucose 120. Troponin I less than 0.069. BNP of 2470. Chest x-ray shows suggestion of interstitial pulmonary edema. EKG shows normal sinus rhythm, no acute ST-T changes seen. ASSESSMENT: 1. Fluid overload with respiratory distress. 2. Hypertensive emergency. 3. Noncompliant. 4. End-stage renal disease, on hemodialysis. 5. Diabetes mellitus. 6. Chronic back pain. PLAN: 1. Vital signs q.4 hours. 2. Activity as tolerated. 3. Allergies, NKDA. 4. Hep-Lock. 5. Continue home medications. 6. Hydralazine IVP p.r.n. 7. Diet, renal and ADA. 8. We will monitor blood pressure closely. Job ID: [id number]
--- NOTE | 2018-10-14 11:19 | DIS ---
DATE OF ADMISSION: 10/10/2018 DATE OF DISCHARGE: 10/11/2018 FINAL DIAGNOSES: Fluid overload Job ID: [id number]
== END 2018-10-11 18:39 | disposition home or self-care (01) ==
LOC: ERS 20:37 → ERHOLD 22:46 → 2SW 10-11 01:54
PROVIDERS: ADMIT Internal Medicine Nephrology; ATTEND Internal Medicine Nephrology
DX: E87.70 Fluid overload, unspecified (principal); I13.2 Hypertensive heart and chronic kidney disease with heart failure and with stage 5 chronic kidney disease, or end stage renal disease; E11.22 Type 2 diabetes mellitus with diabetic chronic kidney disease; N18.6 End stage renal disease; I50.9 Heart failure, unspecified; D63.1 Anemia in chronic kidney disease; E78.5 Hyperlipidemia, unspecified; G89.29 Other chronic pain; M54.9 Dorsalgia, unspecified; I16.1 Hypertensive emergency; M47.819 Spondylosis without myelopathy or radiculopathy, site unspecified; I25.10 Atherosclerotic heart disease of native coronary artery without angina pectoris; Z79.02 Long term (current) use of antithrombotics/antiplatelets; Z79.82 Long term (current) use of aspirin; Z79.899 Other long term (current) drug therapy; Z91.15 Patient's noncompliance with renal dialysis; Z99.2 Dependence on renal dialysis
CPT/HCPCS: 71046; 80053; 82962; 83880; 84484 ×3; 85025; 87340; 93005; 99291; G0378 ×3; 36415; 36416; 90935; G0257; J0360; J2270

== ENCOUNTER 2018-12-03 15:14 | Inpatient (IN) | payer MEDICARE ==
[2018-12-03 16:01] LABS: #Basophils 0.1 thou/uL (0.0-0.2); #Eosinphils 0.1 thou/uL (0.0-0.7); #Lymphocytes 1.3 thou/uL (1.20-3.40); #Monocytes 0.8 thou/uL (0.11-0.59); %Basophils 0.7 % (0.0-1.0); %Eosinophils 1.8 % (0.0-10.0); %Lymphocytes 17.7 % (21.0-51.0); %Neutrophils 68.8 % (42.0-75.0); Hemoglobin 10.8 g/dL (12.0-16.0); Mean Corpuscular HGB CONC 33.5 g/dL (32.0-36.0); Mean Corpuscular Hemoglobin 32.5 pg (27.0-31.0); Mean Platelet Volume 7.9 fL (7.4-10.4); Platelet Count 204 thou/uL (130-400); RBC Distribution Width 12.1 % (11.5-14.5); Red Blood Cell (RBC) Count 3.33 mill/uL (4.20-5.40); White Blood Cell (WBC) Count 7.3 thou/uL (4.8-10.8)
--- NOTE | 2018-12-03 16:20 | RAD ---
Portable frontal chest radiograph: 12/03/2018 COMPARISON: 10/10/2018 HISTORY: Shortness of breath, dyspnea FINDINGS: There is atherosclerotic calcification of the thoracic aorta. Thoracic aorta is tortuous, a stable finding. Stable atherosclerotic calcification of the right axillary region. Stable midline sternotomy wires. No pneumothorax, lobar consolidation, or alveolar edema. Mild pulmonary vascular congestion. Probable small bilateral pleural effusions, not definitely seen on the 10/10/2018 exam. IMPRESSION: Mild pulmonary vascular prominence. Small bilateral pleural effusions. Correlation with P A and lateral imaging may be beneficial. A mild degree of pulmonary edema is a possibility.
[2018-12-03 16:23] LABS: ALT (SGPT) Less than 7 U/L (8-55); AST (SGOT) 13 U/L (5-34); Albumin 3.8 g/dL (3.4-4.8); Alkaline Phosphatase 54 U/L (40-150); Anion Gap 16 mmol/L (10-20); BUN (Urea Nitrogen) 36 mg/dL (9.8-20.1); Bilirubin, Total 0.4 mg/dL (0.2-1.2); Calc. Creatinine Clearance 0 mL/min (70-130); Calcium 10.3 mg/dL (7.8-10.44); Carbon Dioxide 30 mmol/L (23-31); Chloride 98 mmol/L (98-107); Estimated GFR-MDRD 6; Globulin 2.6 g/dL (2.4-3.5); Glucose 98 mg/dL (83-110); Potassium 3.5 mmol/L (3.5-5.1); Protein, Total 6.4 g/dL (6.0-8.3); Sodium 140 mmol/L (136-145)
[2018-12-03 16:51] LABS: CKMB 2.4 ng/mL (0-6.6)
[2018-12-03 17:26] LABS: Actual Bicarbonate (HCO3a) 29.9 mEq/L (22-28); Analyzer IN Cardio ER; Base Excess (BEa) 4.9 mEq/L (-2.0 to +3.0); CO2 Tension 45.7 mmHg (35.0-45.0); Carboxyhemoglobin (COHb) 0.7 gm% (0.0-3.0); Hemoglobin (Hb) 11.2 g/dL (12.0-16.0); O2 Tension (PaO2) 68.8 mmHg (> 70.0); Potassium - ABG Lab 3.56 mmol/L (3.70-5.30); pH, Arterial 7.43 (7.35-7.45)
[2018-12-03 17:28] LABS: Puncture Site LBA
[2018-12-03 17:29] LABS: ALV-art Gradient 73.715 (0-20)
[2018-12-03 19:10] LABS: HBSAg Index 0.16 S/CO (0-0.99); Hep B Surf Ag Non-Reactive S/CO (NonReactive)
[2018-12-03] MEDS ORDERED: Ondansetron PF 4 MG/2 ML Vial IVP PRN (19:19)
[2018-12-03] MEDS ORDERED: Ondansetron ODT 4 MG TAB SL PRN (19:19)
[2018-12-03] MEDS ORDERED: Acetaminophen 325 MG TAB PO PRN (19:19)
[2018-12-03] MEDS ORDERED: Sevelamer Carbonate 800 MG TAB PO PRN (20:11)
[2018-12-03 20:47] LABS: Troponin I 0.181 ng/mL (< 0.028)
[2018-12-03] MEDS: hydrALAZINE 25 MG TAB PO SCH (21:14)
[2018-12-03] MEDS: Carvedilol 25 MG TAB PO SCH (21:15)
[2018-12-03] MEDS: Atorvastatin Calcium 10 MG TAB PO SCH (21:15)
[2018-12-03] MEDS: Lisinopril 20 MG TAB PO SCH (21:16)
--- NOTE | 2018-12-03 21:46 | CON ---
DATE OF CONSULTATION: REASON FOR CONSULTATION: Congestive heart failure. HISTORY OF PRESENT ILLNESS: This is a very noncompliant 73-year-old female who presented to the hospital with progressive shortness of breath. The patient had no chest pain. PAST MEDICAL HISTORY: Significant for hypertension, anemia noncompliance with dialysis, not completing, diabetes mellitus, chronic back pain, appendectomy, CABG, noncompliance, lumbar surgery. MEDICATIONS: Home medications list reviewed. Hospital medications list reviewed. ALLERGIES: REVIEWED. REVIEW OF SYSTEMS: 15-point review of system was performed, negative except for positives noted above. GENERAL: HEAD: NECK: No swelling or lumps. NOSE: No epistaxis or discharge. EYES: No diplopia or pain. 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 NEUROPSYCHIATIC SYSTEMS: No suicidal ideation. No ideation. SKIN: Denies any rash or ulcer. CONSTITUTIONAL: No fever or chills. PHYSICAL EXAMINATION: GENERAL: The patient is awake, alert, in [id number]-qbffglgh distress. VITAL SIGNS: Pulse 75, breathing 16, blood pressure 182/58. GENERAL APPEARANCE AND MENTAL STATUS: Fair. HEAD/NECK: Normocephalic. Atraumatic. EYES: EOMI. No deformity. EARS: Clear. No ulcers. NOSE: Intact. No lesions. MOUTH: Clear. No discharge. THROAT: Clear. No exudate. LUNGS: Clear. No crackles. CARDIAC: S1, S2. No rub. ABDOMEN: Benign. Bowel sounds positive. GENITALIA/RECTUM: Dennis absent. BACK/EXTREMITIES: Edema 0+. NEUROLOGICAL: Alert and motor intact. SKIN: LYMPHATICS: LABORATORY DATA: Reviewed. ASSESSMENT AND PLAN: 1. Stage 6 chronic kidney disease, plan dialysis. 2. Congestive heart failure, plan dialysis. 3. Anemia, stable. 4. Medication based on GFR appropriate. Noncompliance is a major issue. Outbound Sales Agent will be consulted. Job ID: [id number]
[2018-12-03] MEDS: traMADol HCl 50 MG TAB PO PRN (22:20)
[2018-12-03] MEDS: Acetaminophen ER (8hr) 650 MG TAB PO PRN (22:25)
[2018-12-03 22:29] VITALS: BMI 21.1
[2018-12-04] MEDS: cloNIDine 0.2 MG TAB PO PRN (08:25)
[2018-12-04] MEDS: traMADol HCl 50 MG TAB PO PRN ×2 (08:25→17:55)
[2018-12-04] MEDS: Clopidogrel Bisulfate 75 MG TAB PO SCH (10:22)
[2018-12-04] MEDS: Isosorbide Mononitrate (ER) 30 MG TAB PO SCH (10:23)
[2018-12-04] MEDS: Famotidine 20 MG TAB PO SCH (10:23)
[2018-12-04] MEDS: Aspirin 325 MG TAB PO SCH (10:23)
[2018-12-04] MEDS: Lisinopril 20 MG TAB PO SCH ×2 (10:24→20:04)
[2018-12-04] MEDS: hydrALAZINE 25 MG TAB PO SCH ×3 (10:24→20:03)
[2018-12-04] MEDS: Carvedilol 25 MG TAB PO SCH ×2 (10:24→21:06)
[2018-12-04] MEDS: Sevelamer Carbonate 800 MG TAB PO SCH ×3 (10:25→17:55)
[2018-12-04] MEDS ORDERED: Insulin Regular 300 UNITS/3 ML VIAL SC PRN (10:40)
[2018-12-04] MEDS ORDERED: Dextrose 50% Abboject 50 ML SYRINGE IVP PRN (10:40)
[2018-12-04] MEDS ORDERED: Dextrose 5% in Water 1,000 ML IV PRN (10:40)
--- NOTE | 2018-12-04 13:07 | PRG ---
DATE OF SERVICE: 12/04/2018 SUBJECTIVE: This is a 73-year-old female being seen for end-stage renal disease. The patient denied nausea, vomiting, or chest pain. OBJECTIVE: GENERAL: The patient is awake and alert. VITAL SIGNS: Afebrile, pulse 95, breathing 16, blood pressure 118/59. GENERAL APPEARANCE AND MENTAL STATUS: Fair. HEAD/NECK: Normocephalic. Atraumatic. EYES: EOMI. No deformity. EARS: Clear. No ulcers. NOSE: Intact. No lesions. MOUTH: Clear. No discharge. THROAT: Clear. No exudate. LUNGS: Clear. No crackles. CARDIAC: S1, S2. No rub. ABDOMEN: Benign. Bowel sounds positive. GENITALIA/RECTUM: Dennis absent. BACK/EXTREMITIES: Edema 0+. NEUROLOGICAL: Alert and motor intact. SKIN: LYMPHATICS: LABORATORY DATA: Reviewed. ASSESSMENT AND PLAN: 1. Stage 6 chronic kidney disease, plan dialysis. The patient cut her treatment short. 2. Hypertension, stable. 3. Anemia, stable. 4. Congestive heart failure, stable. Job ID: [id number]
[2018-12-04] MEDS: Atorvastatin Calcium 10 MG TAB PO SCH (20:04)
[2018-12-05] MEDS: cloNIDine 0.2 MG TAB PO PRN (01:32)
--- NOTE | 2018-12-05 07:48 | HP ---
CHIEF COMPLAINT: Shortness of breath. HISTORY OF PRESENT ILLNESS: Ms. Gallegos is a 73-year-old female with past medical history of diabetes mellitus, end-stage renal disease, on hemodialysis, hypertension who was brought in because of shortness of breath by the daughter to the ED. She developed the shortness of breath suddenly around 3 a.m. in the morning. She used her brother's oxygen with some relief. The patient states she went for dialys but did not complete dialysis because of back pain, so she had incomplete dialysis. This morning, she is still feeling short of breathand had cough, paroxysmal nocturnal dyspnea, and orthopnoea.soptdecidedtocome to hospital. In the ER pt wasevaluated and was to be in CHF due to fluid overload. she is admiotted for possible hemodialysis and further management. PAST MEDICAL HISTORY End stage renal disease, hypertension,diabetes mellitus, chronic back pain, history fluid overload. PAST SURGICAL HISTORY. s/pappendectomy,s/pCABG,s/plumbar spine surgery CURRENT MEDICATIONS 1.Tyelenol prn 2aspirin 81 mg daily 3.coreg 25 mg bid 4.clonidine 0.2 mg daily 5.plavix 75 mg dail6.diltiazem 60mg tid 6.pepcid 20 mg daily 7. mg tid 8.hydralazine 100 mg tid 9.imdur 30 mg daily 10.lisinopril 20 mg bid 11.tmbllcoose38lnzohct 12.zlfjmuon3xoqufju tid ALLERGIES. NKDA. FAMILY HISTORY.nothing significant. SOCIAL HISTORY.ptlives alone.no smokig,no alcohol intake. REVIEWOF SYSTEMS. unremarkable except for SOB. PHYSICAL EXAMINATION: Vital signs.temp,98,pulse 59, Resp,20,BP 170/90 Pupils equal and reactive to light. Nasopharynx is pale and dry Lungs bilateral air entry present rales + at bases,no wheezing.. heart S1S2 regular, abdomen soft,not tender, bowel sounds present [employer] no focal deficit. LABORATORY DATA: CBC shows WBC 7.3, hemoglobin 10, hematocrit 32, platelets 204. Metabolic panel; sodium 140, potassium 3.5, chloride 98, CO2 of 13, BUN 36, creatinine 7.5, glucose 98. Troponin I 0.136, BNP 4518. ABG showed pH 7.43, pCO2 45, and pO2 68. Chest x-ray shows pulmonary vascular congestion and small bilateral pleural effusions. EKG shows sinus bradycardia with rate of 51, noacute st/t changes seen. IMPRESSION: 1. Acute congestive heart failure secondary to fluid overload,due to end-stage renal disease 2.diabetes mellitus, 3. Hypertension, uncontrolled 4.chronic back pain 5.Hyper lipidemia PLAN 1. vitals q4hrs 2. diet renal,ada 3. Activity as tolerated. 4. allergies, NKDA 5. Nephrology consult for hemodialysis 6.continue home medicatios 7.accuchecks ac and hs 8 sliding scale mild with regular insulin Job ID: [id number] [facility]
[2018-12-05] MEDS: Sevelamer Carbonate 800 MG TAB PO SCH ×3 (09:32→17:12)
[2018-12-05] MEDS: Aspirin 325 MG TAB PO SCH (09:32)
[2018-12-05] MEDS: Lisinopril 20 MG TAB PO SCH ×2 (09:33→20:34)
[2018-12-05] MEDS: Carvedilol 25 MG TAB PO SCH ×2 (09:33→20:33)
[2018-12-05] MEDS: hydrALAZINE 25 MG TAB PO SCH ×3 (09:33→20:33)
[2018-12-05] MEDS: Clopidogrel Bisulfate 75 MG TAB PO SCH (09:35)
[2018-12-05] MEDS: Famotidine 20 MG TAB PO SCH (09:35)
[2018-12-05] MEDS: Isosorbide Mononitrate (ER) 30 MG TAB PO SCH (11:16)
--- NOTE | 2018-12-05 11:37 | PRG ---
DATE OF SERVICE: 12/05/2018 SUBJECTIVE: This is a 73-year-old lady, being seen for end-stage renal disease. The patient denied nausea, vomiting, or chest pain. OBJECTIVE: GENERAL: The patient is awake and alert. VITAL SIGNS: Pulse 63, breathing 16, blood pressure 174/55. GENERAL APPEARANCE AND MENTAL STATUS: Fair. HEAD/NECK: Normocephalic. Atraumatic. EYES: EOMI. No deformity. EARS: Clear. No ulcers. NOSE: Intact. No lesions. MOUTH: Clear. No discharge. THROAT: Clear. No exudate. LUNGS: Clear. No crackles. CARDIAC: S1, S2. No rub. ABDOMEN: Benign. Bowel sounds positive. GENITALIA/RECTUM: Dennis absent. BACK/EXTREMITIES: Edema 0+. NEUROLOGICAL: Alert and motor intact. SKIN: LYMPHATICS: LABORATORY DATA: Reviewed. ASSESSMENT AND PLAN: 1. Chronic kidney disease, stage 6, stable. 2. Hypertension, stable. 3. Anemia, stable. 4. Medications based on GFR, appropriate. Job ID: [id number]
[2018-12-05] MEDS ORDERED: Isosorbide Mononitrate (ER) 30 MG TAB PO SCH (11:45)
[2018-12-05] MEDS: traMADol HCl 50 MG TAB PO PRN (11:56)
[2018-12-05] MEDS: Atorvastatin Calcium 10 MG TAB PO SCH (20:34)
--- NOTE | 2018-12-05 23:58 | CON ---
DATE OF CONSULTATION: 12/05/2018 PRIMARY REEL SYSTEM OPERATOR: Marti Bergman MD REASON FOR CONSULTATION: Severe bradycardia, history of diastolic heart failure, end-stage renal disease. HISTORY OF PRESENT ILLNESS: Ms. Gallegos is a very delightful 73-year-old woman, patient of Dr. Bergmna. The patient who has been admitted to the hospital on this occasion with weakness and fatigue is found to be very bradycardic. The patient does have a previous cardiac history. She underwent cardiac catheterization for severe three-vessel coronary artery disease in 2013 and subsequently had bypass surgery x4. The patient has done well from a cardiac standpoint since then. She did have a previous stent in the right coronary artery. The patient also has end-stage renal disease, is on hemodialysis. The patient as mentioned is bradycardic. She also has history of diastolic congestive heart failure. The patient was admitted to the hospital yesterday with weakness and fatigue and shortness of breath. MEDICATIONS: At home, 1. Diltiazem 60 mg 3 times a day. 2. Hydralazine 100 mg 3 times a day. 3. Lisinopril 20 mg twice a day. 4. Coreg 25 mg twice a day. 5. Aspirin. 6. Lovastatin. ALLERGIES: NONE. FAMILY HISTORY: Negative for heart disease at a young age. SOCIAL HISTORY: No alcohol or tobacco. REVIEW OF SYSTEMS: CONSTITUTIONAL: No significant weight gain or loss. She does feel fatigue. VISION: No changes. HEARING: No changes. PULMONARY: No cough or wheezing. GASTROINTESTINAL: No nausea, vomiting, or diarrhea. SKIN: No rashes. NEUROLOGIC: No unilateral weakness or numbness. PSYCHIATRIC: No unusual depression or anxiety. PHYSICAL EXAMINATION: GENERAL: This is a delightful elderly female. VITAL SIGNS: Her blood pressure is 174/70, pulse at times is in the 40s, at times in the mid 50s. HEENT: Eyes, sclerae are nonicteric. Mouth, mucous membranes are moist. NECK: Supple. No lymphadenopathy. LUNGS: Clear. No wheezing, rales, or rhonchi. CARDIAC: Normal S1, normal S2. She is bradycardic. I do not hear murmur, rub, or gallop. ABDOMEN: Soft, nontender. EXTREMITIES: No clubbing or cyanosis. There is no edema. SKIN: Warm and dry. DIAGNOSTIC STUDIES: EKG, sinus rhythm, left ventricular hypertrophy with repolarization changes with intermittent sinus bradycardia. Potassium is 3.5. ASSESSMENT: 1. Sinus bradycardia, likely related to the combination of carvedilol and diltiazem. 2. Hypertension, difficult to control. 3. Left ventricular hypertrophy on EKG. 4. End-stage renal disease. 5. History of diastolic heart failure. BNP 4518, but she also has renal failure. PLAN: 1. We will stop diltiazem. 2. Substitute Procardia XL 60 mg a day, increase dose to 90 mg if needed. 3. Resume carvedilol when heart rate allows. 4. Echocardiogram. Dr. Bergman is to resume patient's care tomorrow. Job ID: [id number]
[2018-12-06] MEDS ORDERED: NIFEdipine XL 60 MG TAB PO SCH (06:00)
[2018-12-06] MEDS: Sevelamer Carbonate 800 MG TAB PO SCH ×3 (08:35→16:44)
[2018-12-06] MEDS: Aspirin 325 MG TAB PO SCH (08:36)
[2018-12-06] MEDS: hydrALAZINE 25 MG TAB PO SCH ×3 (08:36→20:59)
[2018-12-06] MEDS: Famotidine 20 MG TAB PO SCH (08:37)
[2018-12-06] MEDS: Lisinopril 20 MG TAB PO SCH ×2 (08:37→21:00)
[2018-12-06] MEDS: Carvedilol 25 MG TAB PO SCH ×2 (08:38→21:00)
[2018-12-06 09:17] LABS: #Eosinphils 0.2 thou/uL (0.0-0.7); #Lymphocytes 1.5 thou/uL (1.20-3.40); #Monocytes 0.7 thou/uL (0.11-0.59); #Neutrophils 4.2 thou/uL (1.40-6.50); %Basophils 0.7 % (0.0-1.0); %Eosinophils 3.2 % (0.0-10.0); %Lymphocytes 21.7 % (21.0-51.0); %Monocytes 10.8 % (0.0-10.0); %Neutrophils 63.5 % (42.0-75.0); Hemoglobin 11.7 g/dL (12.0-16.0); Mean Corpuscular HGB CONC 32.8 g/dL (32.0-36.0); Mean Corpuscular Hemoglobin 31.8 pg (27.0-31.0); Mean Corpuscular Volume 97.1 fL (78.0-98.0); Mean Platelet Volume 7.9 fL (7.4-10.4); Platelet Count 223 thou/uL (130-400); Red Blood Cell (RBC) Count 3.67 mill/uL (4.20-5.40); White Blood Cell (WBC) Count 6.7 thou/uL (4.8-10.8)
[2018-12-06 09:31] LABS: Anion Gap 17 mmol/L (10-20); BUN (Urea Nitrogen) 33 mg/dL (9.8-20.1); Calc. Creatinine Clearance 6 mL/min (70-130); Calcium 10.2 mg/dL (7.8-10.44); Carbon Dioxide 25 mmol/L (23-31); Chloride 94 mmol/L (98-107); Estimated GFR-MDRD 7; Glucose 173 mg/dL (83-110); Potassium 4.4 mmol/L (3.5-5.1); Sodium 132 mmol/L (136-145)
--- NOTE | 2018-12-06 11:26 | PDOC.CPN ---
- Subjective Date: 12/06/18 Time: 11:42 Interval history: The pt seen and examined. No overnight events. No cardiac complaints. Per RN , the pt was confused last night and mildly this AM. - Objective Allergies/Adverse Reactions: Allergies Allergy/AdvReac Type Severity Reaction Status Date / Time No Known Allergies Allergy Verified 06/15/18 11:41 Visit Medications: Current Medications Acetaminophen (Tylenol Er (8hr Arthritis Pain)) 1,300 mg PO DAILYPRN PRN PRN Reason: Mild Pain (1-3) Last Admin: 12/03/18 22:25 Dose: 1,300 mg Aspirin (Aspirin) 325 mg PO DAILY [facility] Last Admin: 12/06/18 08:36 Dose: 325 mg Atorvastatin Calcium (Lipitor) 10 mg PO HS [facility] Last Admin: 12/05/18 20:34 Dose: 10 mg Carvedilol (Coreg) 25 mg PO BID [facility] Last Admin: 12/06/18 08:38 Dose: 25 mg Clonidine (Catapres) 0.2 mg PO DAILYPRN PRN PRN Reason: . Last Admin: 12/05/18 01:32 Dose: 0.2 mg Dextrose/Water (Dextrose 50%) 25 gm IVP PRN PRN PRN Reason: HYPOGLYCEMIA PROTOCOL Diltiazem HCl (Cardizem) 60 mg PO TID [facility] Last Admin: 12/06/18 08:38 Dose: Not Given Famotidine (Pepcid) 20 mg PO DAILY [facility] Last Admin: 12/06/18 08:37 Dose: 20 mg Glucagon (Glucagon) 1 mg IM PRN PRN PRN Reason: HYPOGLYCEMIA PROTOCOL Hydralazine HCl (Apresoline) 100 mg PO TID [facility] Last Admin: 12/06/18 08:36 Dose: 100 mg Dextrose/Water (D5w) 1,000 mls @ 0 mls/hr IV INF PRN PRN Reason: HYPOGLYCEMIA PROTOCOL Insulin Human Regular (Humulin R) 0 units SC .MILD SLIDING PRN; Protocol PRN Reason: MILD SLIDING SCALE Isosorbide Mononitrate (Imdur) 60 mg PO DAILY [facility] Last Admin: 12/06/18 08:37 Dose: 60 mg Lisinopril (Zestril) 20 mg PO BID [facility] Last Admin: 12/06/18 08:37 Dose: 20 mg Nifedipine (Procardia Xl) 60 mg PO 0600 [facility] Last Admin: 12/06/18 05:10 Dose: 60 mg Sevelamer Carbonate (Renvela) 3,200 mg PO TID-WM [facility] Last Admin: 12/06/18 08:35 Dose: 3,200 mg Sevelamer Carbonate (Renvela) 2,400 mg PO ASDIR PRN PRN Reason: WITH SNACKS Sodium Chloride (Flush - Normal Saline) 10 ml IVF Q12HR [facility] Last Admin: 12/06/18 08:38 Dose: 10 ml Sodium Chloride (Flush - Normal Saline) 10 ml IVF PRN PRN PRN Reason: Saline Flush Tramadol HCl (Ultram) 50 mg PO Q6H PRN PRN Reason: Moderate Pain (4-6) Last Admin: 12/05/18 11:56 Dose: 50 mg Vital Signs & Weight: Vital Signs Temp Pulse Resp BP BP Pulse Ox 12/06/18 07:30 98.2 F 58 L 10 L 176/72 H 95 12/06/18 05:10 66 154/65 H 12/06/18 03:56 98.3 F 66 18 154/65 H 98 12/05/18 23:39 65 163/72 H Weight 105 lb 13.15 oz - Physical Exam General: alert & oriented x3 HEENT: mucus membranes moist Neck: supple neck Cardiac: regular rate and rhythm, S1/S2 Lungs: decreased breath sounds Skin: clear Musculoskeletal: decreased range of motion - Labs Result Diagrams: 12/06/18 09:06 12/06/18 09:06 Troponin/CKMB CK-MB (CK-2) 2.4 ng/mL (0-6.6) 12/03/18 15:53 Troponin I 0.130 ng/mL (< 0.028) H 12/03/18 23:22 - Telemetry Sinus rhythms and dysrhythmias: sinus rhythm (HR 60s) - Assessment/Plan Assessment/Plan: 1. Bradycardia - HR has been > 60 since Dlitiazem is on hold but she cont. taking Coreg; 2. Acute on Chronic diastolic HF - Stable; Echo was taken and the result is pending. On BBlocker, Lisinopirl, and on HD 3. CAD with hx of CABG x4 in 2012 and hx of stent - on bblocker, ASA, Lipitor and Plavix 4. ESRD - managed by digital marketing specialist; per the pt and family, the pt was declined for kidney tx due to some kind of blood disorder 5. HTN - Imdur was increased from this AM; will increase Nifidipine to 90mg qd if cont. HTN. 6. DM type 2 - 7. HLD - on Statin MAR reviewed * Echo in 2011 with EF 60-65%, severe LVH, trace AR and mild MR Pt. seen and eval. by me. i agree with the A/P by the ORTHOTIC TECHNICIAN. The HR has improved off the diltiaze. Continue Beta blockers as tolerated. Chest clear. RRR.
[2018-12-06] MEDS ORDERED: Clopidogrel Bisulfate 75 MG TAB PO SCH (12:15)
--- NOTE | 2018-12-06 13:24 | PRG ---
DATE OF SERVICE: 12/06/2018 SUBJECTIVE: A 73-year-old female, being seen for end-stage renal disease. The patient denied nausea, vomiting, or chest pain. OBJECTIVE: CONSTITUTIONAL: The patient is awake and alert. VITAL SIGNS: Pulse 62, breathing 16, and blood pressure 154/65. GENERAL APPEARANCE AND MENTAL STATUS: Fair. HEAD/NECK: Normocephalic. Atraumatic. EYES: EOMI. No deformity. EARS: Clear. No ulcers. NOSE: Intact. No lesions. MOUTH: Clear. No discharge. THROAT: Clear. No exudate. LUNGS: Clear. No crackles. CARDIAC: S1, S2. No rub. ABDOMEN: Benign. Bowel sounds positive. GENITALIA/RECTUM: Dennis absent. BACK/EXTREMITIES: Edema 0+. NEUROLOGICAL: Alert and motor intact. SKIN: LYMPHATICS: LABORATORY DATA: Labs reviewed. ASSESSMENT AND PLAN: Stage 6 chronic kidney disease, plan dialysis. Hypertension, stable. Anemia, stable. Medications based on GFR appropriate. Job ID: [id number]
[2018-12-06] MEDS ORDERED: NIFEdipine XL 30 MG TAB PO SCH (13:30)
[2018-12-06] MEDS: traMADol HCl 50 MG TAB PO PRN (14:03)
[2018-12-06] MEDS: Acetaminophen ER (8hr) 650 MG TAB PO PRN (18:08)
[2018-12-06] MEDS: Atorvastatin Calcium 10 MG TAB PO SCH (21:00)
[2018-12-07] MEDS: Carvedilol 25 MG TAB PO SCH (08:52)
[2018-12-07] MEDS: hydrALAZINE 25 MG TAB PO SCH ×2 (08:52→14:29)
[2018-12-07] MEDS: Famotidine 20 MG TAB PO SCH (08:52)
[2018-12-07] MEDS: Lisinopril 20 MG TAB PO SCH (08:53)
[2018-12-07] MEDS: Sevelamer Carbonate 800 MG TAB PO SCH ×3 (08:53→16:08)
[2018-12-07] MEDS ORDERED: NIFEdipine XL 90 MG TAB PO SCH (09:00)
[2018-12-07] MEDS ORDERED: Clopidogrel Bisulfate 75 MG TAB PO SCH (09:00)
[2018-12-07] MEDS ORDERED: Aspirin 81 mg Enteric Coated Tablet PO SCH (09:00)
[2018-12-07 11:26] VITALS: BP 102/55; TEMP 97.5
--- NOTE | 2018-12-07 14:31 | PRG ---
DATE OF SERVICE: 12/07/2018 SUBJECTIVE: A 73-year-old female being seen for end-stage kidney disease. The patient denied nausea, vomiting or chest pain. OBJECTIVE: GENERAL: The patient is awake, alert. VITAL SIGNS: Pulse 60, breathing 16, blood pressure 102/55. GENERAL APPEARANCE AND MENTAL STATUS: Fair. HEAD/NECK: Normocephalic. Atraumatic. EYES: EOMI. No deformity. EARS: Clear. No ulcers. NOSE: Intact. No lesions. MOUTH: Clear. No discharge. THROAT: Clear. No exudate. LUNGS: Clear. No crackles. CARDIAC: S1, S2. No rub. ABDOMEN: Benign. Bowel sounds positive. GENITALIA/RECTUM: Dennis absent. BACK/EXTREMITIES: Edema 0+. NEUROLOGICAL: Alert and motor intact. SKIN: LYMPHATICS: LABORATORY DATA: Potassium 4.4. ASSESSMENT AND PLAN: 1. Stage 6 chronic kidney disease, stable. 2. Hypertension, stable. 3. Anemia, stable. 4. Medication based on GFR, appropriate. Job ID: [id number]
[2018-12-07] MEDS: traMADol HCl 50 MG TAB PO PRN (16:08)
--- NOTE | 2018-12-07 20:17 | PDOC.CPN ---
- Subjective Date: 12/07/18 Time: 14:00 Interval history: She is doing well. She had a low BP with nifedipine. - Review of Systems General: denies: fever/chills, weight/appetite/sleep changes, night sweats, fatigue Respiratory: denies: cough, congestion, shortness of breath, exercise intolerance Cardiovascular: denies: chest pain, palpitation, edema, paroxysmal nocturnal dyspnea, orthopnea Gastrointestinal: denies: nausea, vomiting, diarrhea, constipation, abd pain, GI bleeding Musculoskeletal: denies: pain, tenderness, stiffness, swelling, arthritis/ arthralgias Neurological: denies: numbness, syncope, seizure, weakness - Objective Allergies/Adverse Reactions: Allergies Allergy/AdvReac Type Severity Reaction Status Date / Time No Known Allergies Allergy Verified 06/15/18 11:41 Vital Signs & Weight: Vital Signs Temp Pulse Resp BP BP Pulse Ox 12/07/18 14:29 62 102/55 L 12/07/18 11:25 97.5 F L 62 20 102/55 L 100 12/07/18 08:53 146/65 H 12/07/18 08:52 76 146/65 H 12/07/18 08:51 76 Weight 103 lb 1.6 oz - Physical Exam General: alert & oriented x3, no apparent distress HEENT: mucus membranes moist, normocephaly Neck: supple neck, midline trachea Cardiac: regular rate and rhythm, no murmur Lungs: clear to auscultation, no wheeze, rales, rhonchi Neuro: grossly intact, coordination normal Abdomen: active bowel sounds, soft, non-tender Skin: clear Musculoskeletal: normal range of motion, no pain - Labs Result Diagrams: 12/06/18 09:06 12/06/18 09:06 Troponin/CKMB CK-MB (CK-2) 2.4 ng/mL (0-6.6) 12/03/18 15:53 Troponin I 0.130 ng/mL (< 0.028) H 12/03/18 23:22 - Telemetry Sinus rhythms and dysrhythmias: sinus rhythm - Assessment/Plan Assessment/Plan: 1. Bradycardia, resolved. 2. Acute on Chronic diastolic HF on HD 3. CAD with hx of CABG x4 in 2012 and hx of stent, stable. 4. ESRD 5. HTN 6. DM type 2 7. HLD PLAn: - Stop Nifedipine as she became very hypertensive and started to hallucinate. - BP better off of this medication and BP well controlled. - May discharge home. - Follow up with Dr Bergman in 1 month.
--- NOTE | 2018-12-09 10:48 | DIS ---
DATE OF ADMISSION: 12/04/2018 DATE OF DISCHARGE: 12/07/2018 ADMITTING DIAGNOSES: 1. Acute congestive heart failure secondary to fluid overload due to end-stage renal disease. 2. Diabetes mellitus. 3. Hypertension, uncontrolled. 4. Chronic back pain. 5. Hyperlipidemia. FINAL DIAGNOSES: 1. Acute congestive heart failure due to fluid overload, improved. 2. Hypertension uncontrolled, improved. 3. Diabetes mellitus. 4. Hyperlipidemia. 5. Chronic back pain. BRIEF SUMMARY OF HOSPITAL COURSE: Ms. Gallegos is a 73-year-old female admitted because of shortness of breath. The patient is fluid overloaded , started on dialysis, blood pressure is very uncontrolled. She became bradycardic. started on Procardia XL, after which her bradycardia improved, her blood pressure also improved. The patient DISCHARGE MEDICATIONS: 1. Renvela 4 tabs 3x day with meals. 2. Lovastatin 40 mg at bedtime. 3. Aspirin 325 mg daily. 4. Coreg 25 b.i.d. 5. Lisinopril 20 mg b.i.d. 6. Tylenol p.r.n. 7. . 8. Clonidine 0.2 mg daily. Job ID: [id number]
== END 2018-12-07 17:50 | disposition home health service (06) | DRG 291 ==
LOC: ERS 15:14 → 2NO 19:22 → OBSVTOIN 12-04 18:25
PROVIDERS: ADMIT Internal Medicine; ATTEND Internal Medicine
PROC: 5A1D70Z Performance of Urinary Filtration, Intermittent, Less than 6 Hours Per Day (ICD-10-PCS; principal; 2018-12-04)
DX: I13.2 Hypertensive heart and chronic kidney disease with heart failure and with stage 5 chronic kidney disease, or end stage renal disease (principal); N18.6 End stage renal disease; I50.33 Acute on chronic diastolic (congestive) heart failure; E11.22 Type 2 diabetes mellitus with diabetic chronic kidney disease; D63.1 Anemia in chronic kidney disease; I25.10 Atherosclerotic heart disease of native coronary artery without angina pectoris; E78.5 Hyperlipidemia, unspecified; R00.1 Bradycardia, unspecified; T44.7X5A Adverse effect of beta-adrenoreceptor antagonists, initial encounter; T46.1X5A Adverse effect of calcium-channel blockers, initial encounter; Z91.15 Patient's noncompliance with renal dialysis; Z90.49 Acquired absence of other specified parts of digestive tract; Z95.1 Presence of aortocoronary bypass graft; Z99.2 Dependence on renal dialysis; Z79.82 Long term (current) use of aspirin; Z79.899 Other long term (current) drug therapy; G89.29 Other chronic pain; Z79.02 Long term (current) use of antithrombotics/antiplatelets; Z95.5 Presence of coronary angioplasty implant and graft
CPT/HCPCS: 36415; 36416; 71045; 80048; 80053; 82553; 82805; 83880; 84484; 85025; 87340; 90935; 93005; 93306; 93798; G0257

== ENCOUNTER 2019-01-22 07:21 | Inpatient (IN) | payer MEDICARE ==
--- NOTE | 2019-01-22 08:24 | CT ---
CT BRAIN NONCONTRAST: DATE: 01/22/2019 HISTORY: 73-year-old female with altered mental status and lethargy. COMPARISON: 06/15/2018. FINDINGS: There is no evidence of acute intra-axial or extra-axial hemorrhage. There is no midline shift or any other mass effect. There is no extra-axial fluid collection. There is no evidence of obstructive hydrocephalus. Calvarium is intact. There is diffuse brain parenchymal volume loss. There are low att enuation areas in the white matter. These are nonspecific, but in a patient of this age, they are probably chronic ischemic white matter changes due to microvascular atherosclerosis. At the anterior inferior portion of right anterior cranial fossa, there is a 2 x 1.5 cm extra-axial calcification. Adjacent to this, there is a moderate size region of low attenuation in the right frontal white matte r. Tiny old lacunar infarctions of right putamen and left thalamus, and probably additional ones in bilateral caudate nuclei and left basal ganglia. IMPRESSION: 1) No acute intracranial findings. 2) involutional changes and high-grade chronic ischemic white matter changes. 3) right frontal lobe meningioma causing adjacent chronic vasogenic edema in the right frontal lobe. 4) several tiny old lacunar infarctions in the deep aquino nuclei bilaterally. 5) no interval change.
[2019-01-22 08:27] LABS: #Basophils 0.1 thou/uL (0.0-0.2); #Eosinphils 0.1 thou/uL (0.0-0.7); #Lymphocytes 1.5 thou/uL (1.20-3.40); #Monocytes 0.7 thou/uL (0.11-0.59); #Neutrophils 5.1 thou/uL (1.40-6.50); %Basophils 0.7 % (0.0-1.0); %Eosinophils 1.7 % (0.0-10.0); %Lymphocytes 19.9 % (21.0-51.0); %Monocytes 9.6 % (0.0-10.0); %Neutrophils 68.1 % (42.0-75.0); Hemoglobin 10.7 g/dL (12.0-16.0); Mean Corpuscular Hemoglobin 31.6 pg (27.0-31.0); Mean Corpuscular Volume 98.9 fL (78.0-98.0); Mean Platelet Volume 7.8 fL (7.4-10.4); Platelet Count 209 thou/uL (130-400); RBC Distribution Width 12.3 % (11.5-14.5); Red Blood Cell (RBC) Count 3.39 mill/uL (4.20-5.40); White Blood Cell (WBC) Count 7.5 thou/uL (4.8-10.8)
[2019-01-22 08:45] LABS: ALT (SGPT) Less than 7 U/L (8-55); AST (SGOT) 11 U/L (5-34); Albumin 3.4 g/dL (3.4-4.8); Alkaline Phosphatase 52 U/L (40-110); Anion Gap 19 mmol/L (10-20); BUN (Urea Nitrogen) 75 mg/dL (9.8-20.1); Bilirubin, Total 0.4 mg/dL (0.2-1.2); Calc. Creatinine Clearance 0 mL/min (70-130); Calcium 8.8 mg/dL (7.8-10.44); Carbon Dioxide 26 mmol/L (23-31); Chloride 99 mmol/L (98-107); Estimated GFR-MDRD 4; Globulin 2.4 g/dL (2.4-3.5); Glucose 133 mg/dL (83-110); Potassium 4.2 mmol/L (3.5-5.1); Protein, Total 5.8 g/dL (6.0-8.3); Sodium 140 mmol/L (136-145)
[2019-01-22 09:56] LABS: Bilirubin Negative (Negative); Blood, Urine 1+ (Negative); Clarity Turbid (Clear); Glucose, Urine (Dipstick) Normal (Negative); Leukocyte 500 Leu/uL (Negative); Nitrite Negative (Negative); Protein, Urine (Dipstick) 100 mg/dL (Neg-Trace); RBC/HPF 0-3 HPF (0-3); Squamous Epithelial 0-3 HPF (0-3); Urobilinogen Normal mg/dL (Less than 2); WBC/HPF Greater than 50 HPF (0-3)
[2019-01-22 10:13] LABS: Bacteria/HPF 1+ HPF (None Seen)
[2019-01-22] MEDS ORDERED: Dexamethasone 10 MG/ML VIAL ONE (10:45)
[2019-01-22] MEDS ORDERED: levETIRAcetam In NaCl (Iso-Os) 1,000 MG in Premix Bag 1 BAG IVPB SCH (11:15)
[2019-01-22] MEDS ORDERED: Morphine 2 MG/ML SYRINGE ONE (11:38)
[2019-01-22] MEDS ORDERED: Ondansetron ODT 4 MG TAB SL PRN (13:00)
[2019-01-22] MEDS ORDERED: Acetaminophen 325 MG TAB PO PRN (13:00)
[2019-01-22] MEDS ORDERED: Ondansetron PF 4 MG/2 ML Vial IVP PRN (13:00)
--- NOTE | 2019-01-22 16:16 | CON ---
DATE OF CONSULTATION: 01/22/2019 CONSULTING PHYSICIAN: Dr. Eugene. REASON FOR CONSULTATION: End-stage renal disease evaluation and care. REASON FOR ADMISSION: Altered mentation. HISTORY OF PRESENT ILLNESS: This is a 73-year-old female with history of end-stage renal disease, hypertension, CVA, coronary artery disease, came to the hospital with altered mentation. She was seen in dialysis and was not responding well to queries and she was sent to the hospital. She was seen during dialysis. She still remains slightly confused. No nausea or vomiting. No chest pain or palpitation. PAST MEDICAL HISTORY: Positive for end-stage renal disease, coronary artery disease CHF, CVA, hypertension, and type 2 diabetes. PAST SURGICAL HISTORY: Cardiac stents, dialysis access placement, appendectomy, hysterectomy, and spinal surgery. HOME MEDICATIONS: 1. Clonidine. 2. Procardia. 3. Hydralazine. 4. Carvedilol. 5. Diltiazem. 6. Allopurinol. 7. Levemir. 8. Lovastatin. ALLERGIES: NO KNOWN DRUG ALLERGIES. SOCIAL HISTORY: No smoking, alcohol, or illicit drug abuse. FAMILY HISTORY: No history of kidney disease. REVIEW OF SYSTEMS: CONSTITUTIONAL: Negative for weight loss or gain, ability to conduct usual activities. SKIN: Negative for rash, itching. EYES: Negative for double vision, pain. ENT/MOUTH: Negative for nose bleeding, neck stiffness, pain, tenderness. CARDIOVASCULAR: Negative for palpitations, dyspnea on exertion, orthopnea. RESPIRATORY: Negative for shortness of breath, wheezing, cough, hemoptysis, fever or night sweats. GASTROINTESTINAL: Negative for poor appetite, abdominal pain, heartburn, nausea, vomiting, constipation, or diarrhea. GENITOURINARY: Negative for urgency, frequency, dysuria, nocturia. MUSCULOSKELETAL: Negative for pain, swelling. NEUROLOGIC/PSYCHIATRIC: Negative for anxiety, depression. ALLERGY/IMMUNOLOGIC: Negative for skin rash, bleeding tendency. PHYSICAL EXAMINATION: GENERAL: Reveals an elderly female, in no apparent distress. VITAL SIGNS: Temperature 97.6, pulse 57, respiratory rate 16, and blood pressure 145/48. HEENT: Atraumatic, normocephalic. Oral mucosa moist. NECK: Supple. CARDIOVASCULAR: S1 and S2. Rate and rhythm regular. RESPIRATORY: Clear. GASTROINTESTINAL: Abdomen is soft. MUSCULOSKELETAL: No tenderness. No edema. DERMATOLOGIC: No skin rash. NEUROLOGIC: Slightly confused. LABORATORY DATA: Hemoglobin 10.7. Potassium 4.2, BUN is 75, and creatinine is 7.1. ASSESSMENT AND PLAN: 1. End-stage renal disease. We will continue on dialysis as tolerated. 2. Edema, controlled. 3. Hypertension. 4. History of anemia. The patient is seen during dialysis, tolerating well. Remains confused. We will continue dialysis as tolerated and we will continue dialysis on Sunday, Sunday, and Sunday schedule and as tolerated. Thank you for the consult. Job ID: [id number]
[2019-01-22] MEDS ORDERED: Dextrose 50% Abboject 50 ML SYRINGE IVP PRN ×2 (19:22→20:46)
[2019-01-22] MEDS ORDERED: Dextrose 5% in Water 1,000 ML IV PRN ×2 (19:22→20:46)
[2019-01-22] MEDS ORDERED: traMADol HCl 50 MG TAB PO PRN (19:36)
[2019-01-22] MEDS ORDERED: Acetaminophen ER (8hr) 650 MG TAB PO PRN (19:36)
[2019-01-22] MEDS ORDERED: cloNIDine 0.2 MG TAB PO PRN (19:37)
[2019-01-22] MEDS ORDERED: Clopidogrel Bisulfate 75 MG TAB PO SCH (19:45)
[2019-01-22] MEDS ORDERED: hydrALAZINE 25 MG TAB PO SCH (19:45)
[2019-01-22] MEDS ORDERED: Aspirin 325 MG TAB PO SCH (19:45)
[2019-01-22] MEDS ORDERED: Carvedilol 25 MG TAB PO SCH (19:45)
[2019-01-22] MEDS ORDERED: Lisinopril 20 MG TAB PO SCH (19:45)
[2019-01-22] MEDS ORDERED: Sevelamer Carbonate 800 MG TAB PO PRN (19:46)
[2019-01-22] MEDS ORDERED: Sevelamer Carbonate 800 MG TAB PO SCH (20:00)
[2019-01-22] MEDS ORDERED: Famotidine 20 MG TAB PO SCH (20:00)
[2019-01-22] MEDS ORDERED: Insulin Regular 300 UNITS/3 ML VIAL SC PRN (20:46)
[2019-01-22] MEDS: Atorvastatin Calcium 10 MG TAB PO SCH (20:47)
[2019-01-22] MEDS: cefTRIAXone\\ROCEPHIN 1 GM in Sodium Chloride 0.9% 100 ML IVPB SCH (20:49)
[2019-01-22] MEDS ORDERED: NIFEdipine XL 90 MG TAB PO SCH (21:00)
[2019-01-22] MEDS ORDERED: cefTRIAXone\\ROCEPHIN 1 GM in Sodium Chloride 0.9% 100 ML IVPB SCH (21:00)
[2019-01-22] MEDS ORDERED: Pantoprazole 40 MG VIAL IVP SCH (21:30)
--- NOTE | 2019-01-22 21:38 | CON ---
DATE OF CONSULTATION: 01/22/2019 This is Gabriel Wahl PA-C dictating a report for Zev Galarza MD. This is a 50-minute initial patient evaluation of which greater than 50% of the exam was spent in counseling and coordinating the patient's care. Remainder of the exam was spent in review of the patient's medical records and formulation of treatment plan. CHIEF COMPLAINT: Seizure-like activity with confusion with altered mental status. HISTORY OF PRESENT ILLNESS: Ms. Gallegos is a 73-year-old female with end-stage renal disease, hypertension, history of CVA and CAD, on Plavix and 325 mg aspirin. The patient had some altered mental status and some seizure-like activity according to the emergency room physician, as well as family in which she has some staring off into space. She presented to the emergency room for these reasons and a brain CT was obtained. The patient was found to have a right frontal extra-axial calcification that is likely indicative of a calcified meningioma. Maybe a slight amount of vasogenic edema, but there does not appear to be significant mass effect. According to the patient who is a very poor historian, she has never had any seizure. She currently denies headache. She states she does feel slow and tired. She is supposed to have her dialysis treatment today and states that the session ended early, so she still feel slowed. She was given a loading dose of Keppra, as well as Decadron in the emergency room. She did receive Plavix tonight. The patient voices that she does not wish to have any type of surgery at this time. PHYSICAL EXAMINATION: The patient is awake and a little sleepy. She is little bit difficult to understand. She speaks in a soft tone. She appears to have full strength in all the extremities and is moving all extremities spontaneously and appears to be equal. She needs constant redirection, so formal strength testing may be limited due to this. Her pupils are equal, round, and reactive. She is oriented to person, place, and time. She is rather conversant to person and place. She understands it is January, but thinks the year is 0. She is rather conversant. She is appropriate, though again slightly delayed in her cognition. There are no family at bedside at this time. IMPRESSION/DIAGNOSES: 1. Large right frontal calcified mass, likely meningioma. 2. Seizure-like activity. 3. Transient vasogenic edema. PLAN: At this time, our medical colleagues have admitted the patient. I have discussed the patient's case and imaging with Dr. Galarza. I will continue with ordering some Decadron, but she will likely need an 8-day taper. We will also continue her Keppra with maintenance dose of 500 mg b.i.d. The patient may continue with dialysis as scheduled. On further surgical plan, it is likely that this calcified meningioma is rather asymptomatic. The patient at this time is really not a good candidate for surgery given her multiple comorbidities. She again has voiced her opinion that she does not wish to undergo any type of surgery. We will follow up with her tomorrow. Please call with any changes in patient's neurologic status. Should note that the patient is likely unable to undergo contrasted MRI given that the patient has renal disease, so we will hold on any further imaging at this time. Again, call with questions or concerns. Job ID: [id number]
[2019-01-23] MEDS: Dexamethasone 4 mg/ml Vial SLOW IVP SCH ×5 (00:21→23:02)
[2019-01-23] MEDS: Insulin Regular 300 UNITS/3 ML VIAL SC PRN (05:57)
[2019-01-23] MEDS: Sevelamer Carbonate 800 MG TAB PO SCH ×3 (07:56→17:17)
[2019-01-23] MEDS: Aspirin 325 MG TAB PO SCH (07:57)
[2019-01-23] MEDS: Clopidogrel Bisulfate 75 MG TAB PO SCH (07:57)
[2019-01-23] MEDS: Carvedilol 25 MG TAB PO SCH ×2 (07:57→20:47)
[2019-01-23] MEDS: hydrALAZINE 25 MG TAB PO SCH ×3 (07:58→20:47)
[2019-01-23] MEDS: Pantoprazole 40 MG VIAL IVP SCH (08:00)
[2019-01-23] MEDS: Lisinopril 20 MG TAB PO SCH ×2 (08:00→20:47)
[2019-01-23] MEDS: NIFEdipine XL 90 MG TAB PO SCH (08:04)
--- NOTE | 2019-01-23 08:05 | HP ---
CHIEF COMPLAINT: Blank staring and unresponsiveness. HISTORY OF PRESENT ILLNESS: Ms. Gallegos is a 73-year-old female with past medical history of diabetes; hypertension; end-stage renal disease, on hemodialysis, who was sent from dialysis center because of a blank stare and unresponsiveness briefly. The patient missed a dialysis probably her last dialysis may be one before that also and has been feeling very weak and lethargic when she went to dialysis. She did not complain of any shaking of the legs. No loss of consciousness. No headache. No nausea or vomiting. No chest pain. No shortness of breath. The patient was sent to the hospital because of this episode. EMS found the patient with staring as well as unresponsiveness. The patient remembers coming to the hospital. In the ER, the patient was evaluated and found to be alert and awake. CT scan of the brain was done, which revealed a meningioma in the right frontal lobe with vasogenic edema , which is not new. These both are chronic, but ER physician felt it could be new. They consulted Neurosurgery, who suggested Keppra and Decadron, so the patient received both and admitted for further evaluation. The patient had consultation with Nephrology, who suggested dialysis. The patient underwent dialysis also today. Currently, the patient feels better. She is alert, awake . PAST MEDICAL HISTORY: 1. Insulin-dependent diabetes mellitus. 2. End-stage renal disease, on hemodialysis. 3. Hypertension. 4. Hyperlipidemia. 5. Chronic back pain. 6. History of fluid overload. PAST SURGICAL HISTORY: 1. Status post CABG. 2. Status post appendectomy. 3. Status post lumbar spine surgery. CURRENT MEDICATIONS: 1. The patient is on Coreg 25 mg b.i.d. 2. Tylenol p.r.n. 3. Aspirin 81 mg daily. 4. Clonidine 0.2 mg daily. 5. Plavix 75 mg daily. 6. Diltiazem 60 mg t.i.d. 7. Pepcid 20 mg daily. 8. Hydralazine 100 mg t.i.d. 9. Imdur 30 mg daily. 10. Lisinopril 20 mg b.i.d. 11. Lovastatin 40 mg daily. ALLERGIES: NKDA. FAMILY HISTORY: Nothing contributory. SOCIAL HISTORY: The patient lives with family. No history of smoking. No history of alcohol. REVIEW OF SYSTEMS: CARDIOVASCULAR: No chest pain. No shortness of breath. RESPIRATORY: No fever or cough. GASTROINTESTINAL: No nausea, vomiting, or abdominal pain. CENTRAL NERVOUS SYSTEM: No headache. No dizziness. PHYSICAL EXAMINATION: GENERAL: The patient is alert, awake, oriented x2. VITAL SIGNS: Temperature 98, pulse 72, respirations 20, blood pressure 130/56. HEENT: Head is normocephalic, atraumatic. Pupils are equal and reactive to light. Nasopharynx is pale and dry. NECK: Supple. No JVD. LUNGS: Bilateral air entry. No rales. No rhonchi. HEART: S1 and S2, regular. ABDOMEN: Soft. No distention. No tenderness. Bowel sounds present. CENTRAL NERVOUS SYSTEM: The patient is alert, awake, oriented x2. Motor system, power 4/5 in all extremities. Deep tendon reflex 2+ bilaterally. Plantars downgoing. Sensory intact. LABORATORY DATA: CBC shows WBC 7.5, hemoglobin 10, hematocrit 32, platelets 209. Metabolic panel; sodium 140, potassium 4.2, chloride 99, CO2 of 26, BUN 76, [id number], and glucose 133. Urinalysis, wbc's greater than 50, bacteria 1+. Chest x-ray, not done. CT of the brain showed meningioma right frontal lobe with vasogenic edema, which is chronic. ASSESSMENT: 1. Blank stare and unresponsiveness. 2. Weakness and possible encephalopathy metabolic. 3. End-stage renal disease, on hemodialysis. 4. Hypertension. 5. Diabetes mellitus. 6. Chronic back pain. 7. Chronic anemia. 8. Meningioma of right frontal lobe, which is chronic as well as a vasogenic edema also chronic. PLAN: 1. Vital signs q.4 hours. 2. Activity as tolerated. 3. Allergies, NKDA. 4. Hep-Lock. 5. Continue home medications. 6. Hemodialysis. 7. Nephrology consult. 8. Rocephin 1 g IV piggyback daily. 9. Neurology consult. Job ID: [id number] [facility]
[2019-01-23] MEDS ORDERED: Famotidine 20 MG TAB PO SCH (09:00)
--- NOTE | 2019-01-23 09:17 | PRG ---
DATE OF SERVICE: 01/23/2019 SUBJECTIVE: Patient was seen and examined at bedside and overnight events noted. Patient denies any shortness of breath or chest pain or palpitation. No history of nausea or vomiting or diarrhea or fever or chills or cramps. OBJECTIVE: GENERAL: This is a well-built female, in no apparent distress. VITAL SIGNS: Temperature 97.7. Heart rate 67. Respiratory rate 20. Blood pressure 187/70. HEENT: Atraumatic, normocephalic. Oral mucosa is moist NECK: Supple. CARDIOVASCULAR: S1, S2 heard. Rate and rhythm regular. RESPIRATORY: Clear to auscultation. GASTROINTESTINAL: Abdomen is soft. MUSCULOSKELETAL: No tenderness. No edema. DERMATOLOGIC: No skin rash. NEUROLOGIC: Alert and awake and oriented X3. No focal neurologic deficits. Moving all the extremities. PSYCHIATRIC: Mood and affect normal. LABORATORY DATA: No labs done today. ASSESSMENT AND PLAN: 1. End-stage renal disease. Continue dialysis Sunday, Sunday, Sunday. 2. Edema. We will remove fluid if tolerated. 3. History of hypertension. 4. Anemia. We will monitor. 5. Continue dialysis Sunday, Sunday, Sunday as tolerated. We will follow. Job ID: [id number]
--- NOTE | 2019-01-23 19:45 | CON ---
DATE OF CONSULTATION: 01/23/2019 CONSULTING PHYSICIAN: Chicho Sevilla MD HISTORY OF PRESENT ILLNESS: Ms. Gallegos was readmitted after having a staring spell at dialysis. She has had prior episodes of similar types activity in the past. She has had a prior workup with EEG and CT scans of the brain. Her EEG shows a fairly extensive periventricular small vessel ischemic changes. She has a right frontal meningioma with some questionable edema around it. She is currently on a stroke prevention regimen with Lipitor, aspirin and Plavix. The patient denies having had any episodes where she has lost awareness and hurt herself. PHYSICAL EXAMINATION: At this time, she is alert and appropriate. Her speech is fluent and clear. Exam is nonfocal. She has normal movements without any abnormal movements. ASSESSMENT AND PLAN: Ms. Gallegos has a history of a renal failure and dialysis. She has had some questionable episodes of nonconvulsive seizures. They have not caused her any harm. I do not see any need to start her on anticonvulsants. Job ID: [id number]
[2019-01-23] MEDS: Atorvastatin Calcium 10 MG TAB PO SCH (20:47)
[2019-01-23] MEDS: cefTRIAXone\\ROCEPHIN 1 GM in Sodium Chloride 0.9% 100 ML IVPB SCH (20:48)
[2019-01-23 22:40] VITALS: BMI 23.0
[2019-01-24] MEDS: Dexamethasone 4 mg/ml Vial SLOW IVP SCH (05:04)
--- NOTE | 2019-01-24 10:43 | PRG ---
DATE OF SERVICE: 01/24/2019 SUBJECTIVE: Patient was seen and examined at bedside and overnight events noted. Patient denies any shortness of breath or chest pain or palpitation. No history of nausea or vomiting or diarrhea or fever or chills or cramps. OBJECTIVE: GENERAL: This is a well-built female, in no apparent distress. VITAL SIGNS: Temperature 97.7. Heart rate 78. Respiratory rate 18. Blood pressure 151/77. HEENT: Atraumatic, normocephalic. Oral mucosa is moist NECK: Supple. CARDIOVASCULAR: S1, S2 heard. Rate and rhythm regular. RESPIRATORY: Clear to auscultation. GASTROINTESTINAL: Abdomen is soft. MUSCULOSKELETAL: No tenderness. No edema. DERMATOLOGIC: No skin rash. NEUROLOGIC: Alert and awake and oriented X3. No focal neurologic deficits. Moving all the extremities. PSYCHIATRIC: Mood and affect normal. LABORATORY DATA: Not done today. ASSESSMENT AND PLAN: 1. End-stage renal disease. Continue hemodialysis on Sunday, Sunday, and Sunday. 2. Edema. We will remove fluid dialysis. 3. History of hypertension. 4. Anemia. We will monitor. We will continue on hemodialysis on Sunday, Sunday, and Sunday as tolerated. Job ID: [id number]
[2019-01-24] MEDS: Sevelamer Carbonate 800 MG TAB PO SCH ×3 (11:49→16:52)
[2019-01-24] MEDS: Aspirin 325 MG TAB PO SCH (11:49)
[2019-01-24] MEDS: Carvedilol 25 MG TAB PO SCH ×2 (11:50→20:35)
[2019-01-24] MEDS: Lisinopril 20 MG TAB PO SCH ×2 (11:51→20:35)
[2019-01-24] MEDS: Pantoprazole 40 MG VIAL IVP SCH (11:51)
[2019-01-24] MEDS: hydrALAZINE 25 MG TAB PO SCH ×3 (11:52→20:35)
[2019-01-24] MEDS: Dexamethasone 4 MG TAB PO SCH ×3 (11:53→23:51)
[2019-01-24] MEDS: Clopidogrel Bisulfate 75 MG TAB PO SCH (11:53)
[2019-01-24] MEDS: NIFEdipine XL 90 MG TAB PO SCH (11:54)
[2019-01-24] MEDS: Insulin Regular 300 UNITS/3 ML VIAL SC PRN (16:50)
[2019-01-24] MEDS: cefTRIAXone\\ROCEPHIN 1 GM in Sodium Chloride 0.9% 100 ML IVPB SCH (20:25)
[2019-01-24] MEDS: Atorvastatin Calcium 10 MG TAB PO SCH (20:26)
[2019-01-25] MEDS: Dexamethasone 4 MG TAB PO SCH ×3 (05:38→17:45)
[2019-01-25] MEDS: Insulin Regular 300 UNITS/3 ML VIAL SC PRN ×4 (05:42→20:01)
[2019-01-25] MEDS: Sevelamer Carbonate 800 MG TAB PO SCH ×3 (08:14→17:44)
[2019-01-25] MEDS: hydrALAZINE 25 MG TAB PO SCH ×3 (08:14→20:01)
[2019-01-25] MEDS: NIFEdipine XL 90 MG TAB PO SCH (08:14)
[2019-01-25] MEDS: Clopidogrel Bisulfate 75 MG TAB PO SCH (08:15)
[2019-01-25] MEDS: Aspirin 325 MG TAB PO SCH (08:15)
[2019-01-25] MEDS: Lisinopril 20 MG TAB PO SCH ×2 (08:15→20:00)
[2019-01-25] MEDS: Carvedilol 25 MG TAB PO SCH ×2 (08:15→20:00)
[2019-01-25] MEDS: cefTRIAXone\\ROCEPHIN 1 GM in Sodium Chloride 0.9% 100 ML IVPB SCH (20:00)
[2019-01-25] MEDS: Atorvastatin Calcium 10 MG TAB PO SCH (20:00)
[2019-01-26] MEDS: Dexamethasone 4 MG TAB PO SCH ×2 (00:06→06:00)
[2019-01-26] MEDS: Insulin Regular 300 UNITS/3 ML VIAL SC PRN ×2 (06:00→16:48)
[2019-01-26] MEDS: Sevelamer Carbonate 800 MG TAB PO SCH ×3 (08:26→16:50)
[2019-01-26] MEDS: NIFEdipine XL 90 MG TAB PO SCH (08:27)
[2019-01-26] MEDS: Clopidogrel Bisulfate 75 MG TAB PO SCH (08:29)
[2019-01-26] MEDS: Carvedilol 25 MG TAB PO SCH ×2 (08:29→20:22)
[2019-01-26] MEDS: Aspirin 325 MG TAB PO SCH (08:30)
[2019-01-26] MEDS: Lisinopril 20 MG TAB PO SCH ×2 (08:31→20:22)
[2019-01-26] MEDS: hydrALAZINE 25 MG TAB PO SCH ×3 (08:31→20:23)
--- NOTE | 2019-01-26 08:59 | PRG ---
DATE OF SERVICE: 01/26/2019 SUBJECTIVE: Patient was seen and examined at bedside and overnight events noted. Patient denies any shortness of breath or chest pain or palpitation. No history of nausea or vomiting or diarrhea or fever or chills or cramps. OBJECTIVE: GENERAL: This is a well-built female, in no apparent distress. VITAL SIGNS: Temperature 97.9. Pulse 68. Respiratory rate 17. Blood pressure 147/68. HEENT: Atraumatic, normocephalic. Oral mucosa is moist. NECK: Supple. CARDIOVASCULAR: S1, S2 heard. Rate and rhythm regular. RESPIRATORY: Clear to auscultation. GASTROINTESTINAL: Abdomen is soft. MUSCULOSKELETAL: No tenderness. No edema. DERMATOLOGIC: No skin rash. NEUROLOGIC: Alert and awake and oriented X3. No focal neurologic deficits. Moving all the extremities. PSYCHIATRIC: Mood and affect normal. LABORATORY DATA: Not done today. ASSESSMENT: 1. End-stage renal disease. Continue hemodialysis on Sunday, Sunday, and Sunday. 2. Edema, remove fluid. 3. Hypertension. We will continue to monitor. PLAN: Continue dialysis on Sunday, Sunday, and Sunday as tolerated. Job ID: [id number]
[2019-01-26] MEDS: Ondansetron PF 4 MG/2 ML Vial IVP PRN ×2 (12:38→22:25)
[2019-01-26] MEDS: Dexamethasone 1 MG TAB PO SCH ×2 (12:44→16:51)
[2019-01-26] MEDS: cefTRIAXone\\ROCEPHIN 1 GM in Sodium Chloride 0.9% 100 ML IVPB SCH (20:07)
[2019-01-26] MEDS: Atorvastatin Calcium 10 MG TAB PO SCH (20:22)
[2019-01-27] MEDS: Dexamethasone 1 MG TAB PO SCH ×3 (01:07→12:08)
[2019-01-27] MEDS: Sevelamer Carbonate 800 MG TAB PO SCH ×2 (08:00→12:13)
--- NOTE | 2019-01-27 08:05 | PRG ---
DATE OF SERVICE: 01/25/2019 SUBJECTIVE: Patient was seen and examined at bedside and overnight events noted. Patient denies any shortness of breath or chest pain or palpitation. No history of nausea or vomiting or diarrhea or fever or chills or cramps. OBJECTIVE: GENERAL: This is a well built female in no acute distress. VITAL SIGNS: Temperature 97.4. Heart rate 77. Respiratory rate 16. Blood pressure 165/74. HEENT: Atraumatic, normocephalic. Oral mucosa is moist NECK: Supple. CARDIOVASCULAR: S1, S2 heard. Rate and rhythm regular. RESPIRATORY: Clear to auscultation. GASTROINTESTINAL: Abdomen is soft. MUSCULOSKELETAL: No tenderness. No edema. DERMATOLOGIC: No skin rash. NEUROLOGIC: Alert and awake and oriented X3. No focal neurologic deficits. Moving all the extremities. PSYCHIATRIC: Mood and affect normal. LABORATORY DATA: Glucose was 238. ASSESSMENT AND PLAN: 1. End-stage renal disease. We will continue on hemodialysis on Sunday, Sunday, and Sunday. 2. Edema, . 3. Hypertension. 4. History of anemia. Plan to continue dialysis Sunday, Sunday, Sunday as tolerated. Job ID: [id number]
--- NOTE | 2019-01-27 11:47 | PRG ---
DATE OF SERVICE: 01/27/2019 SUBJECTIVE: A 73-year-old female, being seen for end-stage renal disease. The patient denied nausea, vomiting, or chest pain. OBJECTIVE: CONSTITUTIONAL: The patient is awake and alert. VITAL SIGNS: Afebrile. Pulse 75, breathing 16, blood pressure 119/63. GENERAL APPEARANCE AND MENTAL STATUS: Fair. HEAD/NECK: Normocephalic. Atraumatic. EYES: EOMI. No deformity. EARS: Clear. No ulcers. NOSE: Intact. No lesions. MOUTH: Clear. No discharge. THROAT: Clear. No exudate. LUNGS: Clear. No crackles. CARDIAC: S1, S2. No rub. ABDOMEN: Benign. Bowel sounds positive. GENITALIA/RECTUM: Dennis absent. BACK/EXTREMITIES: Edema 0+. NEUROLOGICAL: Alert and motor intact. SKIN: LYMPHATICS: LABORATORY DATA: Reviewed. ASSESSMENT AND PLAN: 1. Stage 6 chronic kidney disease, stable. 2. Hypertension, stable. 3. Anemia, stable. 4. Medication based on GFR, appropriate. Job ID: [id number]
[2019-01-27] MEDS: Lisinopril 20 MG TAB PO SCH (12:06)
[2019-01-27] MEDS: Aspirin 325 MG TAB PO SCH (12:06)
[2019-01-27] MEDS: Clopidogrel Bisulfate 75 MG TAB PO SCH (12:06)
[2019-01-27] MEDS: hydrALAZINE 25 MG TAB PO SCH (12:07)
[2019-01-27] MEDS: NIFEdipine XL 90 MG TAB PO SCH (12:07)
[2019-01-27] MEDS: Carvedilol 25 MG TAB PO SCH (12:07)
[2019-01-27 15:30] VITALS: BP 126/60; TEMP 98.7
--- NOTE | 2019-01-28 11:53 | DIS ---
DATE OF ADMISSION: 01/22/2019 DATE OF DISCHARGE: 01/27/2019 ADMITTING DIAGNOSES: 1. Blank stare and unresponsiveness, rule out seizures. 2. Weakness and possible encephalopathy, metabolic. 3. End-stage renal disease, on hemodialysis. 4. Hypertension. 5. Diabetes mellitus. 6. Chronic back pain. 7. Chronic anemia. 8. Meningioma, right frontal lobe with vasogenic edema. FINAL DIAGNOSES: 1. Blank stare, unresponsiveness, improved, no evidence of seizures according to the neurologist. 2. Weakness, improved. 3. Metabolic encephalopathy, improved. 4. End-stage renal disease, on hemodialysis. 5. Meningioma, right frontal lobe with vasogenic edema. 6. Hypertension. 7. Diabetes mellitus. 8. Chronic back pain. 9. Chronic anemia. BRIEF SUMMARY OF HOSPITAL COURSE: Ms. Gallegos is a 73-year-old female, admitted because of change in mental status. The patient had a blank stare while in dialysis, felt like she was not responding. She was sent to the hospital initially, thought maybe she had seizures. She was admitted to rule out seizure. The patient also was found to have a meningioma, which was there before also. Neurosurgery was consulted, who felt the patient had some edema since they started her on steroids. The patient became more alert and awake after admission to the hospital. She started to eat very well. She is continued on hemodialysis while in the hospital and Neurology consultation was done. The patient was seen by Dr. Roe. He felt the patient had a staring spell and similar episodes in the past, not suggestive of seizures. Her EEG and CT scan were normal before. EEG showed only a small vessel ischemic changes. He says there is no need to treat with any anticonvulsant, continue with her stroke prevention medications, Lipitor, aspirin, and Plavix. The patient monitored for next couple of days and her blood pressure was initially uncontrolled, but improved with medications. She has been tolerating diet very well, has been eating, so she is being discharged home. At the time of discharge, she was stable. Vital signs stable. Lungs clear. Heart sounds regular. Abdomen is soft and nontender. Bowel sounds present. DISCHARGE MEDICATIONS: Include, 1. Renvela four tablets t.i.d. 800 mg tablets. 2. Lovastatin 40 mg at bedtime. 3. Aspirin 325 mg daily. 4. Plavix 75 mg daily. 5. Coreg 25 b.i.d. 6. Lisinopril 20 mg b.i.d. 7. Tylenol p.r.n. 8. Tramadol 50 q.6h p.r.n. 9. Hydralazine 100 mg t.i.d. 10. Zantac 150 daily. 11. Clonidine p.r.n. 12. Imdur 60 mg daily. 13. Decadron in tapering doses. 14. Procardia XL 90 mg a day. The patient will come for followup in 2 weeks. Job ID: [id number]
[2019-01-28] MEDS ORDERED: Dexamethasone 1 MG TAB PO SCH (12:00)
--- NOTE | 2019-01-29 06:42 | PQF ---
ROBERT HOFFMANN VENKAT R MD [id number] CLINICAL DOCUMENTATION CLARIFICATION FORM: POST DISCHARGE Addendum to original discharge summary date: ____ Late entry note date: __ DATE: 01/29/2019 ATTN: ABIMBOLA HANNAH MD Please exercise your independent, professional judgment in responding to the clarification form. Clinical indicators are provided on the bottom of this form for your review Please check appropriate box(s) to clarify if the following diagnosis has been ruled in or ruled out: Metabolic encephalopathy [ y] Ruled in diagnosis [ ] Continue to treat [ y ] Resolved [ ] Ruled out diagnosis [ ] Cannot rule out diagnosis [ ] Other diagnosis [ ] Unable to determine For continuity of documentation, please document condition throughout progress notes and discharge summary. Thank You. CLINICAL INDICATORS - SIGNS / SYMPTOMS / LABS - Blank staring & unresponsiveness-H&P, 01/23, ABIBMOLA HANNAH MD - Weakness and possible encephalopathy metabolic- H&P, 01/23, ABIMBOLA HANNAH MD - pt missed dialysis probably her last dialysis-- H&P, 01/23, ABIMBOLA HANNAH MD - she still remains slightly confused- Consultation report , 01/22, Stacey Rivera MD RISK FACTORS - ESRD on hemodialysis-H&P, 01/23, ABIMBOLA HANNAH MD - Meningioma of right frontal lobe, which is chronic as well as vasogenic edema also chronic-H&P, 01/23, ABIMBOLA HANNAH MD TREATMENTS - Sodium chloride.IV-01/22 - Dialysis-12/24 (This form is maintained as a part of the permanent medical record) 2014 [employer]. All Rights Reserved Kisha Altamirano [not provided] [not provided] [employer]
[2019-01-30] MEDS ORDERED: Dexamethasone 1 MG TAB PO SCH (12:00)
--- NOTE | 2019-02-03 05:40 | PQF ---
ROBERT HOFFMANN VENKAT R MD [id number] CLINICAL DOCUMENTATION CLARIFICATION FORM: POST DISCHARGE Addendum to original discharge summary date: ____ Late entry note date: __ DATE: 02/03/2019 ATTN:ABIMBOLA HANNAH MD Please exercise your independent, professional judgment in responding to the clarification form. Clinical indicators are provided on the bottom of this form for your review Please check appropriate box(s): [ ] Metabolic encephalopathy due to Dehydration [ ] Metabolic encephalopathy due to ESRD [ ] Metabolic encephalopathy due to Seizure [ y Metabolic encephalopathy unspecified cause [ ] Other diagnosis [ ] Unable to determine For continuity of documentation, please document condition throughout progress notes and discharge summary. Thank You. CLINICAL INDICATORS - SIGNS / SYMPTOMS / LABS - Metabolic encephalopathy ruled in diagnosis- Query response, 01/29 - Pt missed dialysis probably her last dialysis-H&P, 01/23, ABIMBOLA HANNAH MD - Blank starting % unresponsiveness-H&P, 01/23, ABIMBOLA HANNAH MD - C/o of Dehydration -ED, 01/22, Valorie Staples DO - Underwent dialysis today,currently pt feels better-H&P, 01/23, ABIMBOLA HANNAH MD - Seizure like activity with confusion with AMS - Consultation, 01/22, Stacey Rivera MD - had some questionable episodes of nonconvulsive seizures -Consultation 01/23, Vish Rios PA-C RISK FACTORS - ESRD on hemodialysis--H&P, 01/23, ABIMBOLA HANNAH MD - Meningioma of right frontal lobe- H&P, 01/23, ABIMBOLA HANNAH MD - Hypertension-Consultation, 01/22, Stacey Rivera MD TREATMENTS: - Sodium chloride.IV-MAY, 01/22 - Dialysis-01/24 (This form is maintained as a part of the permanent medical record) 2014 [employer]. All Rights Reserved Kisha Altamirano [not provided] [not provided] MTDD
== END 2019-01-27 15:36 | disposition home health service (06) | DRG 70 ==
LOC: ERS 07:21 → T4-B 13:34
PROVIDERS: ADMIT Internal Medicine; ATTEND Internal Medicine
PROC: 5A1D70Z Performance of Urinary Filtration, Intermittent, Less than 6 Hours Per Day (ICD-10-PCS; principal; 2019-01-24)
DX: G93.41 Metabolic encephalopathy (principal); N18.6 End stage renal disease; G93.6 Cerebral edema; I13.2 Hypertensive heart and chronic kidney disease with heart failure and with stage 5 chronic kidney disease, or end stage renal disease; E86.0 Dehydration; G89.29 Other chronic pain; E10.22 Type 1 diabetes mellitus with diabetic chronic kidney disease; D63.1 Anemia in chronic kidney disease; I25.10 Atherosclerotic heart disease of native coronary artery without angina pectoris; D32.0 Benign neoplasm of cerebral meninges; Z95.5 Presence of coronary angioplasty implant and graft; Z99.2 Dependence on renal dialysis; Z90.710 Acquired absence of both cervix and uterus; Z86.73 Personal history of transient ischemic attack (TIA), and cerebral infarction without residual deficits; Z90.49 Acquired absence of other specified parts of digestive tract; Z91.15 Patient's noncompliance with renal dialysis
CPT/HCPCS: 36415; 36416; 51701; 70450; 80053; 81003; 81015; 85025; 90935; 93005; 96374; C9113; G0257; J0696; J1100; J1815; J1953; J2270; J2405; J3490; J8540

== ENCOUNTER 2019-03-14 11:03 | Observation (INO) | payer MEDICARE ==
[2019-03-14 12:10] LABS: #Eosinphils 0.2 thou/uL (0.0-0.7); #Lymphocytes 1.5 thou/uL (1.20-3.40); #Monocytes 0.7 thou/uL (0.11-0.59); #Neutrophils 4.7 thou/uL (1.40-6.50); %Basophils 0.6 % (0.0-1.0); %Eosinophils 2.2 % (0.0-10.0); %Lymphocytes 20.4 % (21.0-51.0); %Monocytes 10.3 % (0.0-10.0); %Neutrophils 66.6 % (42.0-75.0); Hemoglobin 8.6 g/dL (12.0-16.0); Mean Corpuscular Hemoglobin 33.2 pg (27.0-31.0); Mean Platelet Volume 8.2 fL (7.4-10.4); Platelet Count 164 thou/uL (130-400); RBC Distribution Width 12.2 % (11.5-14.5); White Blood Cell (WBC) Count 7.1 thou/uL (4.8-10.8)
[2019-03-14 12:23] LABS: ALT (SGPT) Less than 7 U/L (8-55); AST (SGOT) 11 U/L (5-34); Albumin 3.7 g/dL (3.4-4.8); Alkaline Phosphatase 65 U/L (40-110); Anion Gap 20 mmol/L (10-20); BUN (Urea Nitrogen) 55 mg/dL (9.8-20.1); Bilirubin, Total 0.4 mg/dL (0.2-1.2); Calc. Creatinine Clearance 0 mL/min (70-130); Calcium 9.4 mg/dL (7.8-10.44); Carbon Dioxide 29 mmol/L (23-31); Chloride 95 mmol/L (98-107); Estimated GFR-MDRD 6; Globulin 2.8 g/dL (2.4-3.5); Glucose 104 mg/dL (83-110); Potassium 4.9 mmol/L (3.5-5.1); Protein, Total 6.5 g/dL (6.0-8.3); Sodium 139 mmol/L (136-145)
[2019-03-14] MEDS ORDERED: Ondansetron ODT 4 MG TAB SL PRN (13:34)
[2019-03-14] MEDS ORDERED: Acetaminophen 325 MG TAB PO PRN (13:34)
[2019-03-14] MEDS ORDERED: Ondansetron PF 4 MG/2 ML Vial IVP PRN (13:34)
[2019-03-14] MEDS ORDERED: Fentanyl 100 MCG/2 ML VIAL ONE (14:44)
[2019-03-14] MEDS ORDERED: Sodium Chloride 0.9% 0 ML ONE (14:44)
[2019-03-14] MEDS ORDERED: Activase 2 MG VIAL CATH SCH (15:00)
[2019-03-14] MEDS ORDERED: Sterile Water 10 ML VIAL IVP SCH (15:00)
--- NOTE | 2019-03-14 16:09 | SPC ---
Right upper extremity dialysis fistulogram Thrombolysis right upper extremity dialysis fistula. Percutaneous balloon angioplasty right upper extremity dialysis fistula Sonographic guided vascular access right upper extremity dialysis fistula HISTORY: Renal failure. Difficulty in access right upper extremity dialysis fistula FINDINGS: After explaining the procedure and answering all questions, the right upper extremity was p repped and draped in the usual sterile fashion. Sterile technique, buffered local anesthesia, sonographic guidance, and a 22-gauge needle were used to carefully access the most peripheral portion of the right forearm cephalic dialysis fistula. A 4 Welsh sheath was placed for serial imaging. There are multiple lobular aneurysmal areas of dilatation throughout the forearm cephalic fistula. Ex tensive clot throughout each bulb segment. A focal high-grade stricture is present within the cephalic fistula at the level of the proximal radial shaft. There is very small caliber venous outflow of the forearm cephalic vein at the medial aspect of the a ntecubital fossa. It is not clear if the antecubital vein and upper arm cephalic vein are patent. The cephalic vein of the upper arm was never well opacified. A total of 2 mg recombinant TPA and a total of 5000 units heparin were carefully placed throughout th e cephalic fistula clot throughout the procedure. A 6 mm x 4 cm balloon was placed to the level of high-grade stricture over 6 Welsh sheath. Serial di latations with full bone profile achieved. Repeat imaging showed improvement in caliber. There was significant decrease in clot throughout the a reas of aneurysmal dilatation, although significant clot did remain within the cephalic fistula just below the level of the antecubital fossa. There were no outflow veins of sufficient caliber to a llow passage of the chronic large areas of clot. An 8 mm x 4 cm balloon was then carefully placed to the level of stricture and serial dilatation perf ormed achieving full bone profile. Significant improvement in caliber. Balloon was removed and final imaging was performed, again showing resolution of the area of high gra de stricture but large amount of remaining clot throughout the areas of aneurysmal dilatation of the forearm cephalic dialysis fistula. 6 Welsh sheath was removed and hemostasis obtained using direct pressure. Patient tolerated the proc edure well and was returned in unchanged condition. Fluoroscopy time 8.4 minutes. IMPRESSION: While there was successful balloon angioplasty of the area of high grade stricture and pa rtially successful thrombolysis, this is an and stage dialysis fistula, as hard clot, not responding to thrombolysis, remains throughout the multifocal areas of aneurysmal dilatation within t he lower arm cephalic fistula. Fluoroscopy was improved and dialysis may be able to be performed on a short-term basis, but there is little hope for long-term function of this fistula. Based on this imaging study, a revision of the current fistula would not be helpful, and a new fistul a will likely be necessary.
[2019-03-14] MEDS ORDERED: Iopamidol 300 61% 100 ML VIAL FS ONE (16:43)
--- NOTE | 2019-03-14 17:58 | CON ---
DATE OF CONSULTATION: 03/14/2019 CONSULTING PHYSICIAN: Dr. Eugene. REASON FOR CONSULTATION: End-stage renal disease evaluation. REASON FOR ADMISSION: Fistula issues. HISTORY OF PRESENT ILLNESS: This is a 73-year-old female with history of end-stage renal disease, on hemodialysis; hypertension; CVA; diabetes; and coronary artery disease, came to the hospital with fistula issues. The patient has apparently had a clotted dialysis fistula, not able to get dialysis this week, and sent to the ER. The patient actually had declotting done by the IR, and plan is to have dialysis today. She denies any chest pain or palpitation. She wants to go home. PAST MEDICAL HISTORY: Positive for end-stage renal disease, hypertension, diabetes, and coronary artery disease. PAST SURGICAL HISTORY: Cardiac stents, appendectomy, CABG, dialysis shunt, hysterectomy, and spinal surgery. HOME MEDICATIONS: Reviewed. ALLERGIES: NO KNOWN DRUG ALLERGIES. SOCIAL HISTORY: No smoking, alcohol, or illicit drug abuse. FAMILY HISTORY: No history of kidney disease. REVIEW OF SYSTEMS: CONSTITUTIONAL: Negative for weight loss or gain, ability to conduct usual activities. SKIN: Negative for rash, itching. EYES: Negative for double vision, pain. ENT/MOUTH: Negative for nose bleeding, neck stiffness, pain, tenderness. CARDIOVASCULAR: Negative for palpitations, dyspnea on exertion, orthopnea. RESPIRATORY: Negative for shortness of breath, wheezing, cough, hemoptysis, fever or night sweats. GASTROINTESTINAL: Negative for poor appetite, abdominal pain, heartburn, nausea, vomiting, constipation, or diarrhea. GENITOURINARY: Negative for urgency, frequency, dysuria, nocturia. MUSCULOSKELETAL: Negative for pain, swelling. NEUROLOGIC/PSYCHIATRIC: Negative for anxiety, depression. ALLERGY/IMMUNOLOGIC: Negative for skin rash, bleeding tendency. PHYSICAL EXAMINATION: GENERAL: This is a well-built female, in no apparent distress. VITAL SIGNS: Temperature 98.7, pulse 72, respiratory rate 18, blood pressure 141/62. HEENT: Atraumatic and normocephalic. Oral mucosa is moist. NECK: Supple. CV: S1 and S2 heard. Rate and rhythm regular. RESPIRATORY: Clear. GASTROINTESTINAL: Abdomen is soft. MUSCULOSKELETAL: 1+ edema. DERMATOLOGIC: No skin rash. NEUROLOGIC: Awake and alert. PSYCHIATRIC: Normal mood and affect. LABORATORY DATA: Hemoglobin is 8.6. Potassium is 4.9, BUN is 55, creatinine is 7.7. ASSESSMENT AND PLAN: 1. End-stage renal disease. Plan is to have dialysis today after declotting. 2. Edema, controlled. 3. History of hypertension. 4. Anemia. Monitor hemoglobin. Plan is to continue on dialysis. Job ID: [id number]
[2019-03-14] MEDS ORDERED: Atorvastatin Calcium 10 MG TAB PO SCH (21:45)
[2019-03-14] MEDS ORDERED: hydrALAZINE 25 MG TAB PO SCH (21:45)
[2019-03-14] MEDS ORDERED: Diltiazem HCl SR 60 mg Capsule PO SCH (21:45)
[2019-03-14 22:47] VITALS: BP 179/61; TEMP 98
--- NOTE | 2019-03-17 08:24 | HP ---
CHIEF COMPLAINT: Evaluation of fistula defect. HISTORY OF PRESENT ILLNESS: Ms. Gallegos is a 73-year-old female with past medical history end-stage renal disease, on hemodialysis, hypertension , diabetes, was sent from dialysis because her dialysis fistula is not functioning She did not have any chest pain or shortness of breath,headache or dizziness. No nausea or vomiting. The patient is mainly sent for further evaluation of this fistula, so the patient was evaluated in the ER and the patient was found to have clogged AV fistula, so the patient needed a repair of this AV fistula by the Interventional Radiology and the patient is admitted for further evaluation and management. PAST MEDICAL HISTORY: 1. Hypertension. 2. Diabetes mellitus, insulin dependent. 3. End-stage renal disease, on hemodialysis. 4. Hyperlipidemia. 5. Chronic back pain, passively. 6. Status post CABG. 7. Status post appendectomy. 8. Status post lumbar spine surgery. CURRENT MEDICATIONS: The patient is on: 1. Tylenol p.r.n. 2. Aspirin 81 mg daily. 3. Clonidine 0.2 mg daily. 4. Plavix 75 mg daily. 5. Lovastatin 40 mg daily. 6. Lisinopril 20 mg b.i.d. 7. Imdur 30 mg daily. 8. Hydralazine 100 mg t.i.d. 10. Diltiazem 60 t.i.d. ALLERGIES: NKDA. FAMILY HISTORY: Nothing contributory. SOCIAL HISTORY: The patient lives with family. No history of smoking. No history of alcohol. REVIEW OF SYSTEMS: CARDIOVASCULAR: No chest pain. No shortness of breath. RESPIRATORY: No fever or cough. GASTROINTESTINAL: No nausea or vomiting. No abdominal pain. CENTRAL NERVOUS SYSTEM: No headache. No dizziness. PHYSICAL EXAMINATION: GENERAL: The patient is alert, awake, oriented x3. VITAL SIGNS: Temperature 98, pulse 70, respirations 20, blood pressure 150/60. HEENT: Head is normocephalic, atraumatic. Pupils are equal and reactive. Nasopharynx is pale and dry. NECK: Supple. No JVD. LUNGS: Bilateral air entry. No rales. No rhonchi. HEART: Regular. ABDOMEN: Soft. No distention. No tenderness. No organomegaly. Bowel sounds normal. RECTAL: Deferred. CENTRAL NERVOUS SYSTEM: No focal deficit. LABORATORY DATA: CBC shows WBC 7, hemoglobin 8.6, hematocrit 26, platelets 164. Metabolic panel; sodium 139, potassium 4.9, chloride 95, carbon dioxide 26, BUN 55, creatinine 7.74. AV shunt angiogram showed thrombosis in the fistula. ASSESSMENT: 1. Clogged AV fistula, for declotting. 2. End-stage renal disease, on hemodialysis. 3. Hypertension. 4. Diabetes mellitus. 5. Chronic pain. PLAN: 1. Vital signs q.4 hours. 2. Activities as tolerated. 3. Allergies, NKDA. 4. Hep-Lock. 5. Continue home medications. 6. Obtain interventional Radiology consult. 7. Nephrology consult for dialysis disease. Job ID: [id number] MTDTaylor
--- NOTE | 2019-03-17 10:26 | DIS ---
DATE OF ADMISSION: 03/14/2019 DATE OF DISCHARGE: 03/14/2019 ADMITTING DIAGNOSES: 1. Clogged AV fistula, for declotting. 2. End-stage renal disease, on hemodialysis. 3. Hypertension. 4. Diabetes mellitus. 5. Chronic pain. FINAL DIAGNOSES: 1. Clot in the AV fistula, for declotting. 2. End-stage renal disease, on hemodialysis. 3. Hypertension. 4. Diabetes mellitus. 5. Chronic pain. HOSPITAL COURSE: Ms. Gallegos is a 73-year-old female, admitted because of clogged dialysis fistula. The patient went to the dialysis and they could not do dialysis. the patient was admitted for declotting of the fistula. The patient underwent procedure declotting, after which the patient underwent dialysis. After dialysis, her blood pressure was better controlled . DISCHARGE MEDICATIONS: 1. Lovastatin 40 mg at bedtime. 2. Plavix 75 mg daily. 3. Coreg 25 mg daily. 4. . 5. Allopurinol 100 mg daily. 6. Diltiazem 60 mg q.i.d. 7. . 8. . 9. Hydralazine 50 mg t.i.d. 10. Nifedipine 60 mg daily. Job ID: [id number]
== END 2019-03-14 22:40 | disposition home or self-care (01) ==
LOC: ERS 11:03 → T4-A 16:28
PROVIDERS: ADMIT Internal Medicine; ATTEND Internal Medicine
PROC: 05WY37Z Revision of Autologous Tissue Substitute in Upper Vein, Percutaneous Approach (ICD-10-PCS; principal; 2019-03-14)
DX: T82.868A Thrombosis due to vascular prosthetic devices, implants and grafts, initial encounter (principal); I13.2 Hypertensive heart and chronic kidney disease with heart failure and with stage 5 chronic kidney disease, or end stage renal disease; E11.22 Type 2 diabetes mellitus with diabetic chronic kidney disease; N18.6 End stage renal disease; I50.9 Heart failure, unspecified; D63.1 Anemia in chronic kidney disease; E78.5 Hyperlipidemia, unspecified; G89.29 Other chronic pain; M54.9 Dorsalgia, unspecified; I25.10 Atherosclerotic heart disease of native coronary artery without angina pectoris; Z86.73 Personal history of transient ischemic attack (TIA), and cerebral infarction without residual deficits; Z79.02 Long term (current) use of antithrombotics/antiplatelets; Z79.82 Long term (current) use of aspirin; Z79.899 Other long term (current) drug therapy; Z95.1 Presence of aortocoronary bypass graft; Z95.5 Presence of coronary angioplasty implant and graft; Z99.2 Dependence on renal dialysis
CPT/HCPCS: 36901; 36902; 75902; 80053; 85025; 93005; 99285; C1725; C1769; G0378 ×2; J2997; J3010; Q9967

== ENCOUNTER 2019-04-15 13:54 | Inpatient (IN) | payer MEDICARE ==
[2019-04-15 14:46] LABS: Bilirubin Small (Negative); Blood, Urine Moderate (Negative); Glucose, Urine (Dipstick) Negative (Negative); Leukocyte Large (Negative); Nitrite Positive (Negative); Protein, Urine (Dipstick) > or equal to 300 mg/dL (Neg-Trace); Urobilinogen 0.2 mg/dL (Less than 2)
[2019-04-15 14:52] LABS: Clarity Turbid (Clear)
[2019-04-15 14:53] LABS: Bacteria/HPF 4+ HPF (None Seen); WBC/HPF Greater Than 50 HPF (0-3); Yeast-Budding 1+ HPF (None Seen)
[2019-04-15] MEDS ORDERED: Ketamine 50 MG/ML (10ML VIAL) ONE (15:18)
[2019-04-15] MEDS ORDERED: cefTRIAXone\\ROCEPHIN 1 GM VIAL ONE (16:29)
[2019-04-15] MEDS ORDERED: Lorazepam 2 MG/ML VIAL ONE ×2 (16:29→18:20)
[2019-04-15 16:41] LABS: #Eosinphils 0.2 thou/uL (0.0-0.7); #Lymphocytes 1.5 thou/uL (1.20-3.40); #Monocytes 0.7 thou/uL (0.11-0.59); #Neutrophils 4.4 thou/uL (1.40-6.50); %Basophils 0.5 % (0.0-1.0); %Eosinophils 2.2 % (0.0-10.0); %Lymphocytes 21.5 % (21.0-51.0); %Neutrophils 65.8 % (42.0-75.0); Mean Corpuscular HGB CONC 32.9 g/dL (32.0-36.0); Mean Corpuscular Hemoglobin 33.8 pg (27.0-31.0); Mean Platelet Volume 8.1 fL (7.4-10.4); Platelet Count 220 thou/uL (130-400); RBC Distribution Width 12.6 % (11.5-14.5); Red Blood Cell (RBC) Count 2.06 mill/uL (4.20-5.40); White Blood Cell (WBC) Count 6.8 thou/uL (4.8-10.8)
[2019-04-15 16:59] LABS: ALT (SGPT) Less than 7 U/L (8-55); AST (SGOT) 11 U/L (5-34); Albumin 3.6 g/dL (3.4-4.8); Alkaline Phosphatase 64 U/L (40-110); Anion Gap 16 mmol/L (10-20); BUN (Urea Nitrogen) 33 mg/dL (9.8-20.1); Bilirubin, Total 0.4 mg/dL (0.2-1.2); Calc. Creatinine Clearance 0 mL/min (70-130); Calcium 9.1 mg/dL (7.8-10.44); Carbon Dioxide 33 mmol/L (23-31); Chloride 95 mmol/L (98-107); Estimated GFR-MDRD 6; Globulin 2.3 g/dL (2.4-3.5); Glucose 160 mg/dL (83-110); Potassium 4.1 mmol/L (3.5-5.1); Protein, Total 5.9 g/dL (6.0-8.3); Sodium 140 mmol/L (136-145)
--- NOTE | 2019-04-15 17:03 | RAD ---
EXAM: CHEST ONE VIEW HISTORY: Altered mental status. COMPARISON: 12/03/2018 FINDINGS: Cardiac silhouette is magnified by projection but is in enlarged. Pulmonary vasculature is within nor mal limits. There is mild nonspecific interstitial densities seen in the midlung zones bilaterally without consolidation or pleural fluid. The small bowel pleural effusions and atelectasis noted on th e prior exam have resolved. Vascular calcifications are again seen in an ectatic thoracic aorta. Postsurgical changes related to median sternotomy are again seen. Vascular calcifications are again s een overlying the region of the axillary arteries bilaterally. Osteopenia is present. IMPRESSION: 1. Mild nonspecific perihilar interstitial densities. Mild pulmonary edema cannot be entirely exclude d. 2. Cardiomegaly.
[2019-04-15 17:27] LABS: CKMB 2.4 ng/mL (0-6.6)
[2019-04-15] MEDS ORDERED: Vancomycin 1.5 GRAM/300 ML BAG 1.5 GM in Premix Bag 1 BAG IVPB ONE (17:30)
--- NOTE | 2019-04-15 18:54 | CT ---
CT Brain WO Con History: Mental status change Comparison: CT brain January 22, 2019 Findings: Similar appearance of the right frontal meningioma with vasogenic edema. Severe migraine he patic changes. No midline shift. No mass effect. No hemorrhage. Old bilateral lacunar infarcts. Subtle hypodensity left anterior superior cerebellum axial image which appears similar given differen dilan in patient angulation within the gantry. Calvarium is intact. Paranasal sinuses and mastoids are clear. Moderate likely iatrogenic intravenous gas within superficial draining veins of the forehead. Impression: Chronic findings. No acute intracranial abnormality.
[2019-04-15] MEDS ORDERED: Albumin 25% 25 GM/100 ML BOT IVPB SCH (19:00)
[2019-04-15 19:34] LABS: Lactic Acid 1.9 mmol/L (0.5-2.2)
[2019-04-15 21:11] LABS: Critical Call Chem Troponin I RESULT DECREASING; Troponin I 0.956 ng/mL (< 0.028)
[2019-04-15 23:55] LABS: Critical Call Chem Troponin I RESULT DECREASING
[2019-04-16] MEDS ORDERED: Acetaminophen ER (8hr) 650 MG TAB PO PRN (00:50)
[2019-04-16] MEDS ORDERED: Ondansetron ODT 4 MG TAB PO PRN (00:51)
[2019-04-16] MEDS ORDERED: Albumin 25% 25 GM/100 ML BOT IVPB SCH (01:00)
--- NOTE | 2019-04-16 05:52 | CON ---
DATE OF CONSULTATION: 04/15/2019 CONSULTING PHYSICIAN: Dr. Centeno. REASON FOR CONSULTATION: End-stage renal disease evaluation and care. REASON FOR ADMISSION: Altered mentation. HISTORY OF PRESENT ILLNESS: A 73-year-old female with history of end-stage renal disease, hypertension, CVA, and diabetes, came to the hospital with altered mentation. She is being admitted. Nephrology consulted for maintenance hemodialysis. She gets dialysis Sunday, Sunday, and Sunday. She has confusion. Her family members were at the bedside. PAST MEDICAL HISTORY: Positive for end-stage renal disease, on hemodialysis; type 2 diabetes, hypertension, hyperlipidemia, and coronary artery disease. PAST SURGICAL HISTORY: Coronary artery stents, appendectomy, bypass, dialysis access placement, and hysterectomy. HOME MEDICATIONS: Reviewed. ALLERGIES: NO KNOWN DRUG ALLERGIES. SOCIAL HISTORY: No smoking, alcohol, or illicit drug abuse. FAMILY HISTORY: No history of kidney disease. REVIEW OF SYSTEMS: Could not be obtained due to altered mentation. PHYSICAL EXAMINATION: GENERAL: This is a well-built female, confused. VITAL SIGNS: Temperature 99.3, pulse 85, respiratory rate 18, and blood pressure 104/54. HEENT: Atraumatic, normocephalic. Oral mucosa is moist. NECK: Supple. CARDIOVASCULAR: S1 and S2. Rate and rhythm regular. RESPIRATORY: Clear. GASTROINTESTINAL: Abdomen is soft. MUSCULOSKELETAL: 1+ edema. DERMATOLOGIC: Denies. NEUROLOGIC: Slightly confused. LABORATORY DATA: Hemoglobin is 7.0. Potassium 4.1, BUN is 33, creatinine is 8.1. ASSESSMENT AND PLAN: 1. End-stage renal disease. Continue dialysis Sunday, Sunday, and Sunday. 2. Edema, controlled. 3. Hypertension, stable. 4. Anemia, rule out any bleed and monitor. PLAN: To continue dialysis Sunday, Sunday, and Sunday. We will follow. Thank you for the consult. Job ID: [id number]
[2019-04-16] MEDS ORDERED: Aspirin 325 MG TAB PO SCH (09:00)
[2019-04-16] MEDS ORDERED: Clopidogrel Bisulfate 75 MG TAB PO SCH (09:00)
--- NOTE | 2019-04-16 10:39 | PRG ---
DATE OF SERVICE: 04/16/2019 SUBJECTIVE: The patient was seen and examined at bedside. She remains confused. OBJECTIVE: GENERAL: This is an elderly female, confused. VITAL SIGNS: Temperature 97.8. Heart rate 70. Respiratory rate 20. Blood pressure 119/55. HEENT: Atraumatic, normocephalic. Oral mucosa is moist NECK: Supple. CARDIOVASCULAR: S1, S2 heard. Rate and rhythm regular. RESPIRATORY: Clear to auscultation. GASTROINTESTINAL: Abdomen is soft. MUSCULOSKELETAL: No tenderness. No edema. DERMATOLOGIC: No skin rash. NEUROLOGIC: Alert and awake and oriented X3. No focal neurologic deficits. Moving all the extremities. PSYCHIATRIC: Mood and affect normal. LABORATORY DATA: Hemoglobin is 7.0. Potassium is 4.1, BUN is 33, creatinine is 8.1. ASSESSMENT AND PLAN: 1. End-stage renal disease. Continue on dialysis Sunday, Sunday . 2. Altered mentation. 3. Anemia, rule out any bleed. Monitor hemoglobin. Check CBC. 4. Edema, controlled. 5. Hypertension, stable. Plan to have dialysis if she can tolerate. Repeat labs today with dialysis. Job ID: [id number]
[2019-04-16] MEDS ORDERED: cefTRIAXone\\ROCEPHIN 1 GM in Sodium Chloride 0.9% 100 ML IVPB SCH (11:00)
[2019-04-16] MEDS ORDERED: Ziprasidone 20 MG VIAL IM SCH ×2 (11:30)
[2019-04-16 12:08] LABS: #Basophils 0.1 thou/uL (0.0-0.2); #Eosinphils 0.1 thou/uL (0.0-0.7); #Lymphocytes 1.4 thou/uL (1.20-3.40); #Monocytes 0.7 thou/uL (0.11-0.59); #Neutrophils 4.9 thou/uL (1.40-6.50); %Basophils 1.3 % (0.0-1.0); %Eosinophils 1.7 % (0.0-10.0); %Lymphocytes 19.4 % (21.0-51.0); %Monocytes 9.1 % (0.0-10.0); %Neutrophils 68.6 % (42.0-75.0); Hemoglobin 7.5 g/dL (12.0-16.0); Mean Corpuscular HGB CONC 33.1 g/dL (32.0-36.0); Mean Corpuscular Hemoglobin 33.9 pg (27.0-31.0); Mean Platelet Volume 8.2 fL (7.4-10.4); Platelet Count 179 thou/uL (130-400); RBC Distribution Width 12.7 % (11.5-14.5); White Blood Cell (WBC) Count 7.1 thou/uL (4.8-10.8)
[2019-04-16 12:23] LABS: ALT (SGPT) 72 U/L (8-55); AST (SGOT) 137 U/L (5-34); Albumin 4.2 g/dL (3.4-4.8); Alkaline Phosphatase 63 U/L (40-110); Anion Gap 25 mmol/L (10-20); BUN (Urea Nitrogen) 42 mg/dL (9.8-20.1); Bilirubin, Total 0.4 mg/dL (0.2-1.2); Calc. Creatinine Clearance 5 mL/min (70-130); Calcium 9.4 mg/dL (7.8-10.44); Carbon Dioxide 23 mmol/L (23-31); Chloride 97 mmol/L (98-107); Estimated GFR-MDRD 5; Globulin 2.3 g/dL (2.4-3.5); Glucose 122 mg/dL (83-110); Potassium 4.6 mmol/L (3.5-5.1); Protein, Total 6.5 g/dL (6.0-8.3); Sodium 140 mmol/L (136-145)
[2019-04-16] MEDS ORDERED: Haloperidol Lactate 5 MG/ML VIAL IM SCH (16:30)
[2019-04-16 18:11] LABS: HBSAg Index 0.31 S/CO (0-0.99); Hep B Surf Ag Non-Reactive S/CO (NonReactive)
--- NOTE | 2019-04-16 18:11 | CON ---
DATE OF CONSULTATION: HISTORY OF PRESENT ILLNESS: The patient is a 73-year-old woman, who presented with altered mental status. The patient has a previous history of coronary artery disease. In March of 2012, she underwent a cardiac catheterization. She was found to have three-vessel coronary artery disease. The patient subsequently underwent coronary artery bypass graft surgery. She also had placement of AV fistula and has been subsequently on dialysis. The patient was readmitted in November 2018 with bradycardia. She had adjustment of her medications. She presents with altered mental status. The patient is unable to give any coherent history and was noted to have an elevated troponin level. PAST MEDICAL HISTORY: 1. Coronary artery disease. 2. Hypertension. 3. End-stage renal disease. 4. Diabetes mellitus. 5. Bradycardia. 6. Cerebrovascular accident. PAST SURGICAL HISTORY: Coronary artery bypass surgery, lumbar spine surgery. SOCIAL HISTORY: Nonsmoker. ALLERGIES: NO KNOWN DRUG ALLERGIES. REVIEW OF SYSTEMS: Not obtainable. MEDICATIONS: See nursing list. PHYSICAL EXAMINATION: GENERAL: This is a confused woman, alert, oriented x1. VITAL SIGNS: Blood pressure 123/60. NECK: No jugular venous distention. LUNGS: Clear to auscultation. HEART: Regular rate and rhythm. Normal S1 and S2. ABDOMEN: Nondistended. EXTREMITIES: Showed no edema. LABORATORY RESULTS: Sodium 140, potassium 4.6, chloride 97, bicarbonate 23, BUN 42, creatinine 8.7. Troponin was 0.956. White blood count 7.1, hemoglobin 7.5, platelets are 179. IMPRESSION: 1. Altered mental status secondary to urosepsis. 2. Elevated troponin level. 3. History of coronary artery bypass surgery. 4. History of percutaneous transluminal coronary angioplasty and stent placed. 5. End-stage renal disease. 6. Diabetes mellitus. 7. History of cerebrovascular accident. 8. History of bradycardia. 9. History of anemia. This patient presents with altered mental status, most likely secondary to urine tract infection. She has an elevated troponin level, most likely secondary to demand ischemia. From a cardiac standpoint, I would continue on her present cardiac medications including aspirin and Plavix. We will follow this patient with you through her hospitalization. Job ID: [id number] MTDD
[2019-04-16] MEDS: cefTRIAXone\\ROCEPHIN 1 GM in Sodium Chloride 0.9% 100 ML IVPB SCH (21:57)
[2019-04-16] MEDS: Atorvastatin Calcium 10 MG TAB PO SCH (21:59)
[2019-04-17 07:51] LABS: #Basophils 0.1 thou/uL (0.0-0.2); #Eosinphils 0.2 thou/uL (0.0-0.7); #Lymphocytes 1.4 thou/uL (1.20-3.40); #Monocytes 0.9 thou/uL (0.11-0.59); #Neutrophils 6.5 thou/uL (1.40-6.50); %Basophils 0.9 % (0.0-1.0); %Eosinophils 1.8 % (0.0-10.0); %Lymphocytes 15.6 % (21.0-51.0); %Monocytes 9.8 % (0.0-10.0); %Neutrophils 71.9 % (42.0-75.0); Hemoglobin 8.8 g/dL (12.0-16.0); Mean Corpuscular HGB CONC 31.5 g/dL (32.0-36.0); Mean Corpuscular Hemoglobin 32.3 pg (27.0-31.0); Mean Platelet Volume 8.3 fL (7.4-10.4); Platelet Count 213 thou/uL (130-400); RBC Distribution Width 15.1 % (11.5-14.5); Red Blood Cell (RBC) Count 2.74 mill/uL (4.20-5.40); White Blood Cell (WBC) Count 9.1 thou/uL (4.8-10.8)
[2019-04-17 08:04] LABS: Anion Gap 22 mmol/L (10-20); BUN (Urea Nitrogen) 24 mg/dL (9.8-20.1); Calc. Creatinine Clearance 7 mL/min (70-130); Calcium 9.7 mg/dL (7.8-10.44); Carbon Dioxide 23 mmol/L (23-31); Chloride 99 mmol/L (98-107); Estimated GFR-MDRD 8; Glucose 95 mg/dL (83-110); Sodium 140 mmol/L (136-145)
--- NOTE | 2019-04-17 09:28 | PDOC.CPN ---
- Subjective Date: 04/17/19 Time: 08:30 Interval history: The pt seen and examined. No overnight events. No cardiac complaints. However , she is confused at this moment. - Objective Allergies/Adverse Reactions: Allergies Allergy/AdvReac Type Severity Reaction Status Date / Time No Known Allergies Allergy Verified 04/15/19 21:14 Visit Medications: Current Medications Acetaminophen (Tylenol Er (8hr Arthritis Pain)) 650 mg PO Q8H PRN PRN Reason: Pain Atorvastatin Calcium (Lipitor) 10 mg PO HS [facility] Last Admin: 04/16/19 21:59 Dose: Not Given Carvedilol (Coreg) 3.125 mg PO ONE [facility] Carvedilol (Coreg) 3.125 mg PO BID-[facility] Ceftriaxone Sodium 1 gm/ (Sodium Chloride) 100 mls @ 200 mls/hr IVPB 2100 [facility] Last Admin: 04/16/19 21:57 Dose: 100 mls Ondansetron HCl (Zofran Odt) 4 mg PO BIDPRN PRN PRN Reason: Nausea/Vomiting Sodium Chloride (Flush - Normal Saline) 10 ml IVF Q12HR [facility] Last Admin: 04/17/19 09:01 Dose: 10 ml Sodium Chloride (Flush - Normal Saline) 10 ml IVF PRN PRN PRN Reason: Saline Flush Vital Signs & Weight: Vital Signs Temp Pulse Resp BP Pulse Ox 04/17/19 03:23 98.6 F 87 18 154/67 H 96 Admit Weight 127 lb 1.6 oz Weight 121 lb 4.068 oz - Physical Exam Neck: supple neck Cardiac: regular rate and rhythm, S1/S2 Lungs: decreased breath sounds Extremities: no edema Skin: clear - Labs Result Diagrams: 04/17/19 07:44 04/17/19 07:44 Troponin/CKMB CK-MB (CK-2) 2.4 ng/mL (0-6.6) 04/15/19 16:17 Troponin I 0.910 ng/mL (< 0.028) H* 04/15/19 23:22 - Assessment/Plan Assessment/Plan: 1. NSTEMI type 2 2/2 demand ischemia from urosepsis - the pt is not a good candidate for further cardiac workup due to Anemia and dementia/AMS 2. Urosepsis - 3. CAD with hx of CABG x4 in 2012 and stent in 2002 - will hold ASA and Plavix for now due to Aenemia with unknown etiology; will resume Coreg with low dose; on Statin 4. Chronic Diastolic HF - stable with RA; on HD; will resume Coreg from this AM 5. ESRD with HD on MWF - 6. HTN - stable 7. DM type 2 - 8. HLD - on Statin 9. Anemia - will hold ASA and Plavix for now 10. hx of CVA MAR reviewed * Echo in 11/2018 with EF 60-65%, dd, mod LAE, mild AR and TR Pt. seen and eval. by me. I agree with the A/P by the PALLIATIVE NURSE. She is alert this afternoon. No cardiac complaints. Chest clear. RRR. no edema. No further cardiac workup at this time. [email or web address]
[2019-04-17] MEDS ORDERED: Carvedilol 3.125 MG TAB PO SCH (09:30)
--- NOTE | 2019-04-17 10:25 | HP ---
CHIEF COMPLAINT: Change in mental status. HISTORY OF PRESENT ILLNESS: Ms. Gallegos is a 73-year-old female with past medical history of diabetes mellitus, hypertension, end-stage renal disease, on hemodialysis, was brought in because of change in mental status. According to the family, the patient is usually alert and awake, but now she is very confused and also became very combative, it started in the morning. Did not complain of any chest pain or shortness of breath. No nausea or vomiting. The patient went for dialysis on Sunday. She goes on Sunday, Sunday, Sunday. The patient was brought to the hospital. In the ER, the patient was found to be confused with some mild hypotension. The patient was found to have urinary tract infection. She was given a dose of Rocephin. She was also given Ativan for controlling agitation and ketamine as well. The patient was also found to be in fluid overload secondary to end-stage renal disease. PAST MEDICAL HISTORY: 1. End-stage renal disease, on hemodialysis. 2. Hypertension. 3. Diabetes mellitus. 4. Hyperlipidemia. 5. Chronic back pain. 6. CAD 7. History of anemia, chronic. PAST SURGICAL HISTORY: 1. Status post CABG. 2. Status post lumbar spine surgery. 3. Status post appendectomy. CURRENT MEDICATIONS: The patient is on: 1. Hydralazine 100 mg t.i.d. 2. Tylenol p.r.n. 3. Zofran p.r.n. 4. Nifedipine 90 mg daily. 5. Aspirin 325 mg daily. 6. Lisinopril 20 mg b.i.d. 7. Coreg 25 daily. 8. Lovastatin 40 mg at nighttime. 9. Plavix 75 mg daily. ALLERGIES: NKDA. FAMILY HISTORY: Nothing contributory. SOCIAL HISTORY: The patient lives with family. No history of smoking. No history of alcohol intake. REVIEW OF SYSTEMS: Unable to obtain because the patient is confused, but she does say she has no chest pain or shortness of breath. RESPIRATORY: No cough or fever. GASTROINTESTINAL: No nausea or vomiting. CENTRAL NERVOUS SYSTEM: No headache. No dizziness. PHYSICAL EXAMINATION: GENERAL: The patient is awake, but not oriented. VITAL SIGNS: Temperature 98, pulse 75, respirations 20, blood pressure 140/60. HEENT: Head is normocephalic, atraumatic. Pupils equal, round, and reactive. Nasopharynx is pale and dry. NECK: Supple. No JVD. LUNGS: Bilateral air entry present. No rales, no rhonchi. HEART: S1 and S2, regular. ABDOMEN: Soft. No distention. No tenderness. No organomegaly. Bowel sounds present. RECTAL: Deferred. CENTRAL NERVOUS SYSTEM: The patient is awake, alert, but not oriented. Motor system, power 4/5 in all extremities. Deep tendon reflex 2+ bilaterally. Plantars downgoing. Sensory intact. LABORATORY DATA: CBC shows WBC 6.8, hemoglobin 7, hematocrit 21, platelets 220. Metabolic panel; sodium 140, potassium 4, chloride 95, CO2 of 33, BUN 33, creatinine 8, glucose 160. Troponin I 0.99. BNP was 4152. Chest x-ray shows cardiomegaly , mild pulmonary edema as well. ASSESSMENT: 1. Acute encephalopathy, possibly metabolic. 2. Urinary tract infection, rule out sepsis. 3. Elevated troponin I level. 4. Fluid overload. 5. End-stage renal disease, on hemodialysis. 6. Hypertension. 7. Diabetes mellitus. 8. Chronic anemia. 9. Elevated troponin I level, possibly due to demand ischemia. PLAN: 1. Vital signs q.4 hours. 2. Activities, as tolerated. 3. Allergies, NKDA. 4. Hep-Lock. 5. Continue hemodialysis. 6. Haldol p.r.n. 7. Rocephin 2 g IV piggyback daily. 8. Continue home medications. 9. Nephrology consult. 10. Cardiology consult. Job ID: [id number] MTDD
--- NOTE | 2019-04-17 10:41 | PRG ---
DATE OF SERVICE: 04/17/2019 SUBJECTIVE: Patient was seen and examined at bedside and overnight events noted. Patient denies any shortness of breath or chest pain or palpitation. No history of nausea or vomiting or diarrhea or fever or chills or cramps. OBJECTIVE: GENERAL: This is a well-built female, in no apparent distress. VITAL SIGNS: Temperature 98.6. Heart rate 87. Respiratory rate 18. Blood pressure 154/67. HEENT: Atraumatic, normocephalic. Oral mucosa is moist NECK: Supple. CARDIOVASCULAR: S1, S2 heard. Rate and rhythm regular. RESPIRATORY: Clear to auscultation. GASTROINTESTINAL: Abdomen is soft. MUSCULOSKELETAL: No tenderness. No edema. DERMATOLOGIC: No skin rash. NEUROLOGIC: Alert and awake and oriented X3. No focal neurologic deficits. Moving all the extremities. PSYCHIATRIC: Mood and affect normal. LABORATORY DATA: Potassium 4.0, BUN is 24, and creatinine 6.07. ASSESSMENT AND PLAN: 1. End-stage renal disease, on hemodialysis. Plan to continue hemodialysis Sunday, Sunday, and Sunday as tolerated. 2. Altered mentation, much better. 3. Anemia. Monitor hemoglobin. 4. Edema, controlled. 5. Hypertension, stable. We will add Epogen with dialysis and continue dialysis. Hemoglobin is better. We will follow. Job ID: [id number]
[2019-04-17] MEDS ORDERED: Carvedilol 6.25 MG TAB PO SCH (17:00)
[2019-04-17] MEDS: Carvedilol 3.125 MG TAB PO SCH (17:34)
[2019-04-17] MEDS: cefTRIAXone\\ROCEPHIN 1 GM in Sodium Chloride 0.9% 100 ML IVPB SCH (21:45)
[2019-04-17] MEDS: Fluconazole 100 MG TAB PO SCH (21:45)
[2019-04-17] MEDS: Atorvastatin Calcium 10 MG TAB PO SCH (21:45)
--- NOTE | 2019-04-18 09:08 | PRG ---
DATE OF SERVICE: 04/18/2019 SUBJECTIVE: Patient was seen and examined at bedside and overnight events noted. Patient denies any shortness of breath or chest pain or palpitation. No history of nausea or vomiting or diarrhea or fever or chills or cramps. OBJECTIVE: GENERAL: This is a well-built female, in no apparent distress. VITAL SIGNS: Temperature 98.7. Heart rate 75. Respiratory rate 18. Blood pressure 145/65. HEENT: Atraumatic, normocephalic. Oral mucosa is moist. NECK: Supple. CARDIOVASCULAR: S1, S2 heard. Rate and rhythm regular. RESPIRATORY: Clear to auscultation. GASTROINTESTINAL: Abdomen is soft. MUSCULOSKELETAL: No tenderness. No edema. DERMATOLOGIC: No skin rash. NEUROLOGIC: Alert and awake and oriented x3. No focal neurologic deficits. Moving all the extremities. PSYCHIATRIC: Mood and affect normal. LABORATORY DATA: No labs done today. ASSESSMENT AND PLAN: 1. End-stage renal disease. Continue dialysis on Sunday, Sunday, and Sunday as tolerated. 2. Altered mentation, seems to be better. 3. Anemia. Monitor hemoglobin. 4. Edema, remove fluid on dialysis. 5. Hypertension, stable. Altered mentation is better, seen during dialysis today and we will follow. Job ID: [id number]
[2019-04-18] MEDS ORDERED: Epoetin (ESRD) 20,000 UNITS/ML IVP SCH (10:14)
--- NOTE | 2019-04-18 11:52 | PDOC.CPN ---
- Subjective Date: 04/18/19 Time: 09:00 Interval history: The pt seen and examined. No overnight events. No cardiac complaints. She is off of Restraints this AM. - Objective Allergies/Adverse Reactions: Allergies Allergy/AdvReac Type Severity Reaction Status Date / Time No Known Allergies Allergy Verified 04/15/19 21:14 Visit Medications: Current Medications Acetaminophen (Tylenol Er (8hr Arthritis Pain)) 650 mg PO Q8H PRN PRN Reason: Pain Atorvastatin Calcium (Lipitor) 10 mg PO HS [facility] Last Admin: 04/17/19 21:45 Dose: 10 mg Carvedilol (Coreg) 3.125 mg PO BID-WM [facility] Last Admin: 04/17/19 17:34 Dose: 3.125 mg Epoetin Kamran-epbx (Retacrit) 10,000 unit IVP MoWeFr [facility] Fluconazole (Diflucan) 100 mg PO 2100 [facility] Last Admin: 04/17/19 21:45 Dose: Not Given Ceftriaxone Sodium 1 gm/ (Sodium Chloride) 100 mls @ 200 mls/hr IVPB 2100 [facility] Last Admin: 04/17/19 21:45 Dose: 100 mls Ondansetron HCl (Zofran Odt) 4 mg PO BIDPRN PRN PRN Reason: Nausea/Vomiting Sodium Chloride (Flush - Normal Saline) 10 ml IVF Q12HR [facility] Last Admin: 04/17/19 21:45 Dose: 10 ml Sodium Chloride (Flush - Normal Saline) 10 ml IVF PRN PRN PRN Reason: Saline Flush Vital Signs & Weight: Vital Signs Temp Pulse Resp BP Pulse Ox 04/18/19 08:00 98.7 F 75 18 145/65 H 97 04/18/19 03:21 97.8 F 75 12 124/52 L 98 Admit Weight 127 lb 1.6 oz Weight 123 lb - Physical Exam General: other (mildly confused) Cardiac: regular rate and rhythm, S1/S2 Lungs: decreased breath sounds - Labs Result Diagrams: 04/17/19 07:44 04/17/19 07:44 Troponin/CKMB CK-MB (CK-2) 2.4 ng/mL (0-6.6) 04/15/19 16:17 Troponin I 0.910 ng/mL (< 0.028) H* 04/15/19 23:22 - Telemetry Sinus rhythms and dysrhythmias: sinus rhythm - Assessment/Plan Assessment/Plan: 1. NSTEMI type 2 2/2 demand ischemia from urosepsis - the pt is not a good candidate for further cardiac workup due to Anemia and dementia/AMS 2. Urosepsis - 3. CAD with hx of CABG x4 in 2012 and stent in 2002 - will hold ASA and Plavix for now due to Aenemia with unknown etiology; will resume Coreg with low dose; on Statin 4. Chronic Diastolic HF - stable with RA; on HD; will resume Coreg from this AM 5. ESRD with HD on MWF - 6. HTN - stable 7. DM type 2 - 8. HLD - on Statin 9. Anemia - will hold ASA and Plavix for now 10. hx of CVA MAR reviewed * Echo in 11/2018 with EF 60-65%, dd, mod LAE, mild AR and TR Pt. seen and eval. by me. I agree with the A/P by the NEUROBIOLOGIST. Less confused. Wants to go home. Chest clear. RRR. No edema. I agree with the A/P by the NEUROBIOLOGIST.The cardiac status is stable. No further workup at this time. I will sign off. If any new cardiac events then please consult me again. thank you.
[2019-04-18] MEDS: Carvedilol 3.125 MG TAB PO SCH ×2 (12:53→16:18)
[2019-04-18] MEDS: EPOETIN ALFA-EPBX (ESRD) 10,000 UNIT/ML VIAL IVP SCH (13:38)
[2019-04-18 13:43] VITALS: BMI 22.4
[2019-04-18] MEDS: cefTRIAXone\\ROCEPHIN 1 GM in Sodium Chloride 0.9% 100 ML IVPB SCH (20:39)
[2019-04-18] MEDS: Fluconazole 100 MG TAB PO SCH (20:39)
[2019-04-18] MEDS: Atorvastatin Calcium 10 MG TAB PO SCH (20:40)
[2019-04-19] MEDS: Carvedilol 3.125 MG TAB PO SCH ×2 (08:32→17:26)
--- NOTE | 2019-04-19 13:21 | PRG ---
DATE OF SERVICE: 04/19/2019 SUBJECTIVE: Patient was seen and examined at bedside and overnight events noted. Patient denies any shortness of breath or chest pain or palpitation. No history of nausea or vomiting or diarrhea or fever or chills or cramps. OBJECTIVE: GENERAL: This is a well-built female, in no acute distress. VITAL SIGNS: Temperature 97.6, pulse 79, respiratory rate 18, blood pressure 137/60. HEENT: Atraumatic, normocephalic. Oral mucosa is moist NECK: Supple. CARDIOVASCULAR: S1, S2 heard. Rate and rhythm regular. RESPIRATORY: Clear to auscultation. GASTROINTESTINAL: Abdomen is soft. MUSCULOSKELETAL: No tenderness. No edema. DERMATOLOGIC: No skin rash. NEUROLOGIC: Alert and awake and oriented X3. No focal neurologic deficits. Moving all the extremities. PSYCHIATRIC: Mood and affect normal. LABORATORY DATA: Potassium 4.0, BUN is 24, creatinine is 6.07 from today's labs. ASSESSMENT AND PLAN: 1. End-stage renal disease. Continue dialysis. 2. Altered mentation. 3. Anemia. 4. Edema. 5. Hypertension. PLAN: To continue dialysis as tolerated Sunday, Sunday, Sunday. Job ID: [id number]
[2019-04-19] MEDS: Fluconazole 100 MG TAB PO SCH (14:49)
[2019-04-19] MEDS: Atorvastatin Calcium 10 MG TAB PO SCH (19:57)
[2019-04-19] MEDS: cefTRIAXone\\ROCEPHIN 1 GM in Sodium Chloride 0.9% 100 ML IVPB SCH (19:57)
[2019-04-20] MEDS: Carvedilol 3.125 MG TAB PO SCH ×2 (09:22→17:45)
[2019-04-20] MEDS ORDERED: Loperamide HCl 2 MG CAP PO PRN (14:01)
[2019-04-20] MEDS: Fluconazole 100 MG TAB PO SCH (14:16)
[2019-04-20] MEDS: Atorvastatin Calcium 10 MG TAB PO SCH (20:27)
[2019-04-20] MEDS: cefTRIAXone\\ROCEPHIN 1 GM in Sodium Chloride 0.9% 100 ML IVPB SCH (20:27)
[2019-04-21 04:41] LABS: #Basophils 0.1 thou/uL (0.0-0.2); #Eosinphils 0.2 thou/uL (0.0-0.7); #Lymphocytes 1.8 thou/uL (1.20-3.40); #Monocytes 0.9 thou/uL (0.11-0.59); %Basophils 1.1 % (0.0-1.0); %Eosinophils 2.8 % (0.0-10.0); %Lymphocytes 22.6 % (21.0-51.0); %Monocytes 11.7 % (0.0-10.0); %Neutrophils 61.8 % (42.0-75.0); Hemoglobin 8.8 g/dL (12.0-16.0); Mean Corpuscular HGB CONC 33.3 g/dL (32.0-36.0); Mean Platelet Volume 8.4 fL (7.4-10.4); Platelet Count 205 thou/uL (130-400); RBC Distribution Width 14.2 % (11.5-14.5); Red Blood Cell (RBC) Count 2.57 mill/uL (4.20-5.40); White Blood Cell (WBC) Count 8.1 thou/uL (4.8-10.8)
[2019-04-21 05:07] LABS: Anion Gap 23 mmol/L (10-20); BUN (Urea Nitrogen) 66 mg/dL (9.8-20.1); Calc. Creatinine Clearance 5 mL/min (70-130); Calcium 8.4 mg/dL (7.8-10.44); Carbon Dioxide 20 mmol/L (23-31); Chloride 100 mmol/L (98-107); Estimated GFR-MDRD 5; Glucose 94 mg/dL (83-110); Potassium 4.4 mmol/L (3.5-5.1); Sodium 139 mmol/L (136-145)
[2019-04-21] MEDS: Carvedilol 3.125 MG TAB PO SCH ×2 (09:05→18:13)
--- NOTE | 2019-04-21 11:21 | PRG ---
DATE OF SERVICE: 04/20/2019 SUBJECTIVE: The patient was seen and examined at bedside and overnight events noted. Patient denies any shortness of breath or chest pain or palpitation. No history of nausea or vomiting or diarrhea or fever or chills or cramps. OBJECTIVE: GENERAL: This is a well-built female, in no apparent distress VITAL SIGNS: Temperature 97.9. Heart rate 75. Respiratory rate 16, blood pressure 139 /63. HEENT: Atraumatic, normocephalic. Oral mucosa is moist NECK: Supple. CARDIOVASCULAR: S1, S2 heard. Rate and rhythm regular. RESPIRATORY: Clear to auscultation. GASTROINTESTINAL: Abdomen is soft. MUSCULOSKELETAL: No tenderness. No edema. DERMATOLOGIC: No skin rash. NEUROLOGIC: Alert and awake and oriented X3. No focal neurologic deficits. Moving all the extremities. PSYCHIATRIC: Mood and affect normal. LABORATORY DATA: Potassium 4.0, BUN is 24, creatinine is 6.07 on the 6th. ASSESSMENT AND PLAN: 1. End-stage renal disease. Continue dialysis Sunday, Sunday, Sunday. 2. Altered mentation. 3. Anemia. 4. Edema. 5. Hypertension. 6. Continue dialysis Sunday, Sunday, Sunday as tolerated. Job ID: [id number]
--- NOTE | 2019-04-21 11:38 | PRG ---
DATE OF SERVICE: 04/21/2019 SUBJECTIVE: A 73-year-old female, being seen for end-stage kidney disease. The patient denied nausea, vomiting, or chest pain. OBJECTIVE: CONSTITUTIONAL: The patient is awake and alert. VITAL SIGNS: Pulse 98, breathing 16, blood pressure 115/78. GENERAL APPEARANCE AND MENTAL STATUS: Fair. HEAD/NECK: Normocephalic. Atraumatic. EYES: EOMI. No deformity. EARS: Clear. No ulcers. NOSE: Intact. No lesions. MOUTH: Clear. No discharge. THROAT: Clear. No exudate. LUNGS: Clear. No crackles. CARDIAC: S1, S2. No rub. ABDOMEN: Benign. Bowel sounds positive. GENITALIA/RECTUM: Dennis absent. BACK/EXTREMITIES: Edema 0+. NEUROLOGICAL: Alert and motor intact. SKIN: LYMPHATICS: LABORATORY DATA: Hemoglobin 8.8. Creatinine 8.76. ASSESSMENT AND PLAN: 1. Stage 6 chronic kidney disease. Plan dialysis today. 2. Hypertension, stable. 3. Anemia, stable. 4. Medication based on GFR, appropriate. Job ID: [id number]
[2019-04-21] MEDS: Fluconazole 100 MG TAB PO SCH (14:25)
[2019-04-21] MEDS: EPOETIN ALFA-EPBX (ESRD) 10,000 UNIT/ML VIAL IVP SCH (18:50)
[2019-04-21] MEDS: Atorvastatin Calcium 10 MG TAB PO SCH (21:26)
[2019-04-21] MEDS: cefTRIAXone\\ROCEPHIN 1 GM in Sodium Chloride 0.9% 100 ML IVPB SCH (21:27)
[2019-04-22] MEDS: Carvedilol 3.125 MG TAB PO SCH (09:57)
[2019-04-22 13:44] VITALS: BP 127/65; TEMP 97.4
--- NOTE | 2019-04-22 17:25 | PRG ---
DATE OF SERVICE: 04/22/2019 SUBJECTIVE: A 73-year-old female, being seen for end-stage kidney disease. The patient denies any nausea, vomiting, or chest pain. OBJECTIVE: GENERAL: The patient is awake and alert. VITAL SIGNS: Afebrile, pulse 75, breathing 16, blood pressure 127/65. GENERAL APPEARANCE AND MENTAL STATUS: Fair. HEAD/NECK: Normocephalic. Atraumatic. EYES: EOMI. No deformity. EARS: Clear. No ulcers. NOSE: Intact. No lesions. MOUTH: Clear. No discharge. THROAT: Clear. No exudate. LUNGS: Clear. No crackles. CARDIAC: S1, S2. No rub. ABDOMEN: Benign. Bowel sounds positive. GENITALIA/RECTUM: Dennis absent. BACK/EXTREMITIES: Edema 0+. NEUROLOGICAL: Alert and motor intact. SKIN: LYMPHATICS: LABORATORY DATA: Reviewed. ASSESSMENT AND PLAN: 1. Stage 6 chronic kidney disease, stable. 2. Hypertension, stable. 3. Anemia, stable. 4. Medication based on GFR, appropriate. Job ID: [id number]
--- NOTE | 2019-04-24 06:59 | PQF ---
ROBERT HOFFMANN VENKAT R MD [id number] [id number] CLINICAL DOCUMENTATION CLARIFICATION FORM: POST DISCHARGE Addendum to original discharge summary date: ____ Late entry note date: __ DATE:04/24/2019 ATTN: Chicho Rodriguez Please exercise your independent, professional judgment in responding to the clarification form. Clinical indicators are provided on the bottom of this form for your review Please check appropriate box(s) to clarify if the following diagnosis has been ruled in or ruled out: Sepsis [ ] Ruled in diagnosis [ ] Continue to treat [ ] Resolved [ y ] Ruled out diagnosis [ ] Cannot rule out diagnosis [ ] Other diagnosis [ ] Unable to determine In addition, please specify: Present on Admission (POA): [ y] Yes [ ] No [ ] Unable to determine For continuity of documentation, please document condition throughout progress notes and discharge summary. Thank You. CLINICAL INDICATORS - SIGNS / SYMPTOMS / LABS Laboratory Hematology 04/15 WBC 6.8, Plt 220, Neutrophils 65.8, Lactic Acid 2.2 Microbiology Urine Culture 04/15 Positive with Yeast Microbiology Blood Culture / Staphylococcus epidermidis, Staph. hominis subsp Vital signs 04/15 BP 90/52, Resp 85, Pulse 18, Temp 99.3 H&P p1 2/ Dr Sevilla brought in because of change in mental status H&P p1 2/ Dr Sevilla According to family, the patient is usually alert and awake, but now she is very confused and also became very combative H&P p1 2 Dr Sevilla In ER, the patient was found to be confused with some mild hypotension H&P p2 2/ Dr Sevilla Urinary tract infection, rule out sepsis Cardiology PN p2 2 Dr Bergman NSTEMI type 2 2/2 demand ischemia from Urosepsis RISK FACTORS H&P p1 2 73-year old H&P p1 2/ DM H&P p1 2 HTN H&P p1 2 ESRD on HD H&P p1 2 Urinary tract infection H&P p2 2 Acute Encephalopathy TREATMENTS MAY 11 -IV Rocephin 1gm MAY 11 -IV Vancomycin 1.5gm MAY 11 -IVF 1L MAY 11 Fluconazole 100mg po Blood bank 04/16 1U RBC Nephrology consult 04/16 Dr Ibarra, [facility] Microbiology 04/15 blood culture (This form is maintained as a part of the permanent medical record) 2014 [employer]. All Rights Reserved [email or web address]
== END 2019-04-22 15:47 | disposition home health service (06) | DRG 640 ==
LOC: ERS 13:54 → 2NO 18:48
PROVIDERS: ADMIT Internal Medicine; ATTEND Internal Medicine
PROC: 5A1D70Z Performance of Urinary Filtration, Intermittent, Less than 6 Hours Per Day (ICD-10-PCS; principal; 2019-04-16)
PROC: 30233N1 Transfusion of Nonautologous Red Blood Cells into Peripheral Vein, Percutaneous Approach (ICD-10-PCS; 2019-04-16)
DX: E87.70 Fluid overload, unspecified (principal); N18.6 End stage renal disease; I21.A1 Myocardial infarction type 2; G93.41 Metabolic encephalopathy; N39.0 Urinary tract infection, site not specified; I50.32 Chronic diastolic (congestive) heart failure; I13.2 Hypertensive heart and chronic kidney disease with heart failure and with stage 5 chronic kidney disease, or end stage renal disease; E11.22 Type 2 diabetes mellitus with diabetic chronic kidney disease; D63.1 Anemia in chronic kidney disease; I25.10 Atherosclerotic heart disease of native coronary artery without angina pectoris; Z99.2 Dependence on renal dialysis; Z95.1 Presence of aortocoronary bypass graft; Z95.5 Presence of coronary angioplasty implant and graft; Z90.710 Acquired absence of both cervix and uterus; Z86.73 Personal history of transient ischemic attack (TIA), and cerebral infarction without residual deficits; Z79.899 Other long term (current) drug therapy; Z79.02 Long term (current) use of antithrombotics/antiplatelets; Z79.82 Long term (current) use of aspirin
CPT/HCPCS: 36415; 36430; 51701; 70450; 71045; 80048; 80053; 81003; 81015; 82140; 82553; 83605; 83880; 84484; 85025; 86850; 86900; 86901; 87040; 87077; 87086; 87149; 87340; 90935; 93005; 94760; 96361; 96365; 96366; 96367; 96372; 96375; A4353; G0257; J0696; J1630; J2060; J3486; J3490; P9016; P9047; Q5105